=== PATIENT | male | born 1955 | race Two or more races ===

== ENCOUNTER → 2021-03-02 15:29 | Outpatient (BNVA) | payer MEDICARE, MEDICAID, SELFPAY | PROVIDERS: PCP Internal Medicine; Visit Provider Internal Medicine | DX: M79.18 Myalgia, other site (principal); M96.1 Postlaminectomy syndrome, not elsewhere classified | CPT/HCPCS: 20553; 99202 ==

== ENCOUNTER 2021-03-04 | Outpatient (REF) | payer MEDICARE, SELFPAY ==
--- NOTE | ~2021-03-04 | FL_ITS ---
EXAMINATION: XR FLUOROSCOPY WITH IMAGES CLINICAL INFORMATION: Post laminectomy syndrome. COMPARISON: None. TECHNIQUE: Fluoroscopy performed by Dr. Roni Isidro. Fluoroscopy time: 0.5 minutes DAP: 4 Gycm2 Images: 3 FINDINGS: Images demonstrate needle placement and contrast injection of the epidural space in the sacrum and lower lumbar spine. FL/FL guidance in treatment room IMPRESSION: Fluoroscopy guidance for pain management procedure.
== END 2021-03-04 00:01 | disposition home or self-care (01) ==
LOC: HO.RADIR
PROVIDERS: Visit Provider Internal Medicine
DX: Z13.89 Encounter for screening for other disorder (principal)

== ENCOUNTER → 2021-03-04 11:34 | Outpatient (BNVA) | payer MEDICARE, MEDICAID, SELFPAY | PROVIDERS: PCP Internal Medicine; Visit Provider Internal Medicine | DX: M96.1 Postlaminectomy syndrome, not elsewhere classified (principal); G89.4 Chronic pain syndrome; M54.50 Low back pain, unspecified | CPT/HCPCS: 62323; Q9967 ==

== ENCOUNTER → 2021-03-13 10:42 | Outpatient (BNVA) | payer MEDICARE, MEDICAID, SELFPAY | PROVIDERS: PCP Internal Medicine; Visit Provider Internal Medicine | DX: M96.1 Postlaminectomy syndrome, not elsewhere classified (principal); I10 Essential (primary) hypertension; E78.5 Hyperlipidemia, unspecified; E11.9 Type 2 diabetes mellitus without complications; Z79.4 Long term (current) use of insulin; Z79.84 Long term (current) use of oral hypoglycemic drugs; Z79.891 Long term (current) use of opiate analgesic; Z79.899 Other long term (current) drug therapy | CPT/HCPCS: 99212 ==

== ENCOUNTER → 2022-08-30 10:40 | Outpatient (BNVA) | payer MEDICARE, MEDICAID, SELFPAY | PROVIDERS: PCP Internal Medicine; Visit Provider Internal Medicine | DX: M96.1 Postlaminectomy syndrome, not elsewhere classified (principal); M47.816 Spondylosis without myelopathy or radiculopathy, lumbar region; G89.29 Other chronic pain; Z98.1 Arthrodesis status | CPT/HCPCS: 99212 ==

== ENCOUNTER 2022-09-15 14:20 | Day surgery (SDC) | payer MEDICARE, MEDICAID, SELFPAY ==
--- NOTE | ~2022-09-15 | FL_ITS ---
EXAMINATION: XR FLUOROSCOPY WITH IMAGES CLINICAL INFORMATION: L3 medial branch sprint left COMPARISON: Previous exam February 2021 TECHNIQUE: Fluoroscopy Supervised By: Dr. Heladio Isidro. Fluoroscopy Time: 0.6 minutes. Cumulative Dose: 19 mGy. DAP: 2 Gycm2. Images: 2. FINDINGS: There is surgical hardware in the lumbar sacral spine new in the interval from 2020 exam. Image demonstrates needle/probe over the posterior L5-S1 disc disease. FL/FL guidance in OR IMPRESSION: Fluoroscopy guidance for pain management procedure
--- NOTE | 2022-09-15 14:37 | MHC.SHP ---
Pre-Procedural Eval Section A Date of Service: 09/15/22 The patient is an INPATIENT: No Changes since office visit: Yes Patient answered all questions The History & Physical has been completed within 30 days and I have reviewed it.: No Section B Chief Complaint: Postlaminectomy syndrome,chronic pain, Relevant Family History (Specify if Yes): No Relevant Social History: Other (specify) Present Medications: None Medical History: No relevant PMH History of Previous Operations: Relevant previous surgery/procedure and date(s) (Lumbar fusion) Allergies: Allergies Allergy/AdvReac Type Severity Reaction Status Date / Time No Known Allergies Allergy Verified 08/30/22 10:45 Review of Systems Sugical H&P ROS: Negative: Constitution, Cardiovascular and Respiratory Exam Surgical H&P Exam: Normal: HEENT, Normal: Heart and Normal: Lungs Plan Diagnosis/Plan: Unchanged I have reviewed the history and physical and performed a pertinent physical examination on my patient. No changes have occurred unless specified. Time Spent With Patient Time: Total time managing care of this patient today ____ minutes.
--- NOTE | 2022-09-15 14:38 | P.BOP_ITS ---
Brief Operative Note Date of Service: 09/15/22 Pre-op diagnosis: Chronic intractable low back pain, lumbar spondylosis, post-laminectomy syndrome Post-op diagnosis: same Procedure: Temporary right L4 medial branch nerve stimulator Implants: Sprint temporary PNS system Surgeon: Heladio Isidro MD Anesthesia: MAC and local Was an Informatics Nurse Specialist used for this Procedure?: No Estimated blood loss (mL): 20 Pathology: none sent Condition: stable Disposition: same day
--- NOTE | 2022-09-15 14:38 | P.OP_ITS ---
Operative Note Operative Note Date of Service: 09/15/22 Narrative: Lumbar Medial Branch Nerve Stimulation Lead Placement, SPR (Sprint) System, Right L4 Medial Branch ? After the risks, benefits and alternatives were discussed with the patient and informed consent was obtained, patient was placed in the prone position and padded to foster comfort. The skin overlying the lumbosacral spine was prepped and draped in sterile fashion. Fluoroscopy was used to identify the spinous process and lamina in the center of the patient?s region of pain. After identifying and marking the intended target along the course of the medial branch nerve, the skin around the planned entry point and the subcutaneous tissues were injected with lidocaine 1%. An introducer needle and stimulating probe were assembled, inserted and advanced along the intended course of the L3 medial branch nerve as it traverses the lamina medial and inferior to the zygapophyseal joint, taking care to maintain the proper depth of insertion as the introducer is advanced under fluoroscopic guidance. The introducer needle was delivered to a location in proximity to the nerve under the right L4 pedicle. Multiple stimulation parameters were used to deliver stimulation to the target medial branch nerve in concert with stimulating at multiple positions around the nerve. Nerve target acquisition was confirmed noting generation of paresthesias in the paravertebral regions corresponding to the level being stimulated. Upon removal of the stimulating stylet, profuse vascular bleeding was observed through the insertion cannula. The cannula was removed and firm, steady pressure was held on to the lumbar area for 5-7 minutes. Decision was made to then re- attempt placement on the right L4 medial branch nerve as it courses the under the right L5 pedicle. The introducing needle was delivered under the right L5 pedicle at a 45 degree trajectory with contact on the lamina. Paresthesia based stimulation in the patient's usual area of pain was once again confirmed. However once again upon removal of the stimulating stylet, bleeding was observed through the cannula. The cannula was once again removed and study pressure was held for 5-7 minutes. A 3rd attempt was made by inserting the stimulating probe an introducer assembly at a steeper angle under the right L5 pedicle targeting the right L4 medial branch. Various electrical parameter combinations were tested, and the lead location was adjusted (physically relocated) until the patient indicated paresthesia/muscle tension overlapping the distribution of the patient?s typical region of pain. The stimulating probe was removed from the introducer and a percutaneous lead was guided through the needle and delivered to a location in similar proximity to the nerve. Final location was verified with electrical stimulation and documented with fluoroscopy. Upon removal of the insertion cannula, minor bleeding was observed around the lead insertion site. Once again study pressure was held for 5-7 minutes over the lead insertion and its course under the skin. Hemostasis was successfully obtained. The exposed end of the percutaneous lead was attached to an external stimulator unit. Various electrical parameter combinations were again tested until the patient indicated paresthesia or muscle tension overlapping the distribution of the patient?s typical region of pain. After confirming that lead impedance was in the normal range, the external unit was detached, the needle was removed, and the lead was anchored at the skin. The lead was threaded into the connector block and electrical continuity and desired patient response was confirmed. The connector block was attached to the external stimulator unit. The site was covered with a sterile occlusive dressing. The patient was observed for stability of vital signs and comfort.
[2022-09-15 14:40] VITALS: BMI 34.7
[2022-09-15 16:20] VITALS: BP 148/85; PULSE 87; RESP 20; TEMP 36.9; O2SAT 94
== END 2022-09-15 17:20 | disposition home or self-care (01) ==
PROVIDERS: PCP Internal Medicine; Visit Provider Internal Medicine
PROC: (CPT 64555; principal; 2022-09-15 15:10)
DX: M47.816 Spondylosis without myelopathy or radiculopathy, lumbar region (principal); M96.1 Postlaminectomy syndrome, not elsewhere classified; G89.29 Other chronic pain; M54.50 Low back pain, unspecified; I10 Essential (primary) hypertension; E78.5 Hyperlipidemia, unspecified; E11.9 Type 2 diabetes mellitus without complications; F41.1 Generalized anxiety disorder; Z79.1 Long term (current) use of non-steroidal anti-inflammatories (NSAID); Z79.4 Long term (current) use of insulin; Z79.899 Other long term (current) drug therapy
CPT/HCPCS: 64555; C1778

== ENCOUNTER → 2023-01-26 10:52 | Outpatient (BNVA) | payer MEDICARE, MEDICAID, SELFPAY | PROVIDERS: PCP Internal Medicine; Visit Provider Physician Assistant ==

== ENCOUNTER 2023-02-28 08:57 | Outpatient (AMB) | payer MEDICARE, MEDICAID, SELFPAY ==
--- NOTE | 2023-02-28 08:59 | A.OFFVIS_ITS ---
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 SWL Chemical Dependency Counselor Required: Yes Chemical Dependency Counselor Name: susan [id number] CMI azeri Allergies No Known Allergies Allergy (Verified 02/28/23 09:24) Medication List - Last Reconciled 02/28/23 by SUKH Guadarrama alfuzosin ER 10 mg PO DAILY clonazepam 0.25 mg PO BEDTIME dorzolamide 2% 1 drp ophthalmic (eye) TID dulaglutide (Trulicity) 3 mg subcut QWEEK ibuprofen 600 mg PO Q8H PRN insulin glargine (Lantus U-100 Insulin) 10 units subcut QPM insulin lispro (Humalog KwikPen (U-100) Insulin) 1 sliding scale dose subcut US EASDIRECTD losartan 25 mg PO DAILY metformin 1,000 mg PO BIDWMEAL prazosin 5 mg PO BEDTIME simvastatin 20 mg PO QPM trazodone 100 mg PO BEDTIME PRN venlafaxine ER 150 mg PO DAILY HPI HPI Comments History of Present Illness Details Pt is here to start the [facility] surgical weight loss program. He heard about our program fromhis pain management doctor. His goal is to lose weight and achieve a healthy lifestyle as well as to improve, if not resolve, obesity related medical conditions, including DM, HTN, HLD. He reports first being concerned about his weight 4-5 years ago, highest weight to date was 260. Current weight is 246.4 pounds with a BMI of 36.4. He has tried multiple methods of weight loss including fad diets without permanent results. He lives with his . He is not currently working. 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 He has been in the [place] 25 years. He wakes at:?5am, and goes to bed at?9pm. Dinner is at 430 pm. Breakfast: sour cream, cheese, olives AM snack: fruit Lunch: mixed nuts PM snack: skip Dinner: rice, beans, meat After dinner: dessert or fruit Other snacks: sometimes a dessert Liquids: 48 oz water daily, 12 oz coke zero, no juice Alcohol/marijuana/tobacco intake: none Exercise: walk, treadmill, 1-2 x per week GERD score: 0 HOMA score: 0 ESS score: 2 QOL score: 69 PFSH Medical History Post laminectomy syndrome Failed back syndrome HTN (hypertension) Arthritis Cervical spondylarthritis Insomnia Right arm pain Obesity Anxiety Nightmare disorder Low back pain Depression Lumbar spinal stenosis Ulnar neuropathy Carpal tunnel syndrome Chronic pain syndrome Glaucoma HLD (hyperlipidemia) Diabetes mellitus Surgical History Previous back surgery Family History Mother Diabetes Father Diabetes Daughter No problems noted. Daughter No problems noted. Son No problems noted. Daughter No problems noted. Son No problems noted. Social History Household Members: Spouse and Children Housing: House Alcohol intake: never Patient Tobacco Use Status: Never used Tobacco Current occupational status: retired Review of Systems Const All systems reviewed & are unremarkable except as noted in HPI and below Physical Exam Vital Signs: Last Vital Signs Temp 97.6 F 02/28/23 09:19 Pulse 81 02/28/23 09:19 BP 160/87 H 02/28/23 09:19 Pulse Ox 98 02/28/23 09:19 Oxygen Delivery Method Room Air 02/28/23 09:19 BMI result Body Mass Index 36.4 Const General: cooperative, healthy appearing and no acute distress Orientation/consciousness: patient oriented x3 HEENT Head: Yes normal to inspection Ears: hearing grossly normal bilaterally General nose exam: Normal external nose present Face and sinus: Yes normal facial exam Eyes General: appearance normal, both eyes and all related structures Resp Effort & Inspection: normal respiratory effort Auscultation: clear to auscultation bilaterally Cardio Rate: regular rate Rhythm: regular rhythm Heart sounds: S1 normal heart sound present and S2 normal heart sound present GI Inspection: Yes normal to inspection, No distended and Yes obesity Palpation (GI): Soft to palpation, nontender and no guarding Auscultation: normal bowel sounds Skin General skin exam: no rashes or lesions noted Neuro General: patient oriented x3 Extrem General: No edema Psych Appearance: grossly normal Mental Status: mental status grossly normal Speech and movement: Normal speech and movement present Affect: normal affect Attitude: cooperative Assessment & Plan Assessment & Plan (1) Obesity: Code(s): E66.9 - Obesity, unspecified Plan: This is a?68 yo male who will start our SWL program to prepare for bariatric surgery.? Blood work, h pylori , CXR, ECG, Abd US and UGI have been ordered. He is being scheduled for RD and BH initial consultations. He will start SWL classes and watch the first three videos before his next appointment. ? Adequate sleep of 7-8 hours per night discussed, awakening at 530 am and going to bed around 9 pm ? Purchase body composition analyzer scale (Renph[employer] recommended) and check weight weekly. The best time to do this is first thing in the morning after going to the bathroom. 1. Nutritional counseling: Be sure to careful read the number of scoops per shake Start with 2 Celebrate Rebuild shakes ([facility] [employer], [employer], [employer]), (2 scoops in 20 oz unsweetened almond milk) First shake at 630am-830am, Second shake at 930am-1130am 2 protein bars ([employer] bars at [facility] [employer], [employer], [employer]) First bar at 1230pm-230pm. Second bar at 330pm-530pm Dinner at 6pm (9 forks of protein and 9 forks of salad/vegetables). Meal to include lean meat (beef, fish, pork, turkey, chicken), cooked vegetables or a salad with olive oil and/or fruits (berries, pears, apples, kiwi). Avoid salt, breads, potatoes, rice, pasta, desserts. Try to drink 64 oz of water daily and avoid soda and juices. ?2. Each shake would be drunk slowly, like coffee in a period of 2 hours. ?3. Cut each bar in 4 pieces and eat each piece in 30 min ?to make each bar last 2 hours. ?4. I emphasized the importance of measuring accurately the food portion and measure it carefully when serving the food on the plate ?5. The meal portions include 9 full-size forks of meat and 9 full-size forks of salad. You always eat the meat portion but you can replace up to half of the forks of salad/vegetables with rice, potatoes or pasta, or a fruit ?if you like. The less you do it the better weight loss will be. ?6. One full-size fork is what can be scooped on the fork without falling aside and not what can be bit with the fork. Use regular forks like those you find in a typical restaurant. ?7.? Please send me weight measurements as soon as possible and then once a week. Always include your diet and exercise plan. Alternatively come weekly at the office for weight checks and send me the measurements. ?8. Exercise counseling: Begin by watching a stretching for beginners video. Start slowly and begin to stretch your muscles. You should do this before and after each exercise session to prevent injury. Please join [employer] [facility] near your home. Ask the insurance manager or one of the trainers how to use the machines if you are unfamiliar with them. Start elliptical with a resistance of 2. Increase resistance by 1 every 3 min to your most comfortable resistance with a max resistance of 8. Reduce the resistance by 1 every 3 minutes back down to 2 and repeat cycles for 300 calories. Alternatively, start treadmill with a speed of 3.0 and incline of 0, increasing incline by 1 every 3 minutes to the highest comfortable level (max 6 for now) then decrease in the same fashion. Repeat process to a goal of 300 calories. Goal of 2000 calories burned or more weekly. You may also consider use of the stationary bike. The easiest would be to chose the fat-burn or interval training program on the machine and do this until you reach the 300 calorie goal. Alternatively, you can manually adjust the resistance in a similar fashion as mentioned above, (resistance of 2-8 with a goal speed of 12 mph). Tracking calories is essential. 9. Alternatively start walking outside daily, tracking calories with a goal of 300 calories per day, daily. You can download the [employer] which can track your time, distance and calories while walking outside. You press start in the eddie when you start and then stop when you are finished. 10.? It is important to communicate with me weekly and especially more often if you are having any problems with the plans. 11. Please get labs, EKG and chest X-Ray within 1 week. 12. Discussed and answered all questions regarding?obtained consent to participate in the [facility]?Registry. 13. Please follow the diet plan exactly, without any change. If you do not like something about the plan or you feel hungry, you need to communicate with me so I can help you revise the plan. You should not change the plan yourself. Text me at [phone] 14. Goal is to lose at least 5 pounds in the first month 15. be sure and closely monitor your blood sugars as they will decrease fairly quickly on this meal and exercise plan Patient is morbidly obese and is not considered stable at this time.?I spent a total of 70 minutes reviewing/updating records, examining the patient and counseling the patient on weight management as detailed above. Orders: Orders Lipid Panel Today E11.9 - Type 2 diabetes mellitus without complications, E66.9 - Obesity, unspecified, E78.5 - Hyperlipidemia, unspecified, I10 - Essential (primary) hypertension Vitamin B12 and Folate Today E11.9 - Type 2 diabetes mellitus without complications, E66.9 - Obesity, unspecified, E78.5 - Hyperlipidemia, unspecified, I10 - Essential (primary) hypertension Zinc Today E11.9 - Type 2 diabetes mellitus without complications, E66.9 - Obesity, unspecified, E78.5 - Hyperlipidemia, unspecified, I10 - Essential (primary) hypertension Comprehensive Met. Panel Today E11.9 - Type 2 diabetes mellitus without complications, E66.9 - Obesity, unspecified, E78.5 - Hyperlipidemia, unspecified, I10 - Essential (primary) hypertension Vitamin A Today E11.9 - Type 2 diabetes mellitus without complications, E66.9 - Obesity, unspecified, E78.5 - Hyperlipidemia, unspecified, I10 - Essential (primary) hypertension C Reactive Protein Today E11.9 - Type 2 diabetes mellitus without complications, E66.9 - Obesity, unspecified, E78.5 - Hyperlipidemia, unspecified, I10 - Essential (primary) hypertension Ferritin Today E11.9 - Type 2 diabetes mellitus without complications, E66.9 - Obesity, unspecified, E78.5 - Hyperlipidemia, unspecified, I10 - Essential (primary) hypertension PTHI Today E11.9 - Type 2 diabetes mellitus without complications, E66.9 - Obesity, unspecified, E78.5 - Hyperlipidemia, unspecified, I10 - Essential (primary) hypertension H Pylori Breath Test Today E11.9 - Type 2 diabetes mellitus without complications, E66.9 - Obesity, unspecified, E78.5 - Hyperlipidemia, unspecified, I10 - Essential (primary) hypertension Vitamin D 25-OH Total Today E11.9 - Type 2 diabetes mellitus without complications, E66.9 - Obesity, unspecified, E78.5 - Hyperlipidemia, unspecified, I10 - Essential (primary) hypertension Hemoglobin A1c Today E11.9 - Type 2 diabetes mellitus without complications, E66.9 - Obesity, unspecified, E78.5 - Hyperlipidemia, unspecified, I10 - Essential (primary) hypertension FL upper GI w air Today E11.9 - Type 2 diabetes mellitus without complications, E66.9 - Obesity, unspecified, E78.5 - Hyperlipidemia, unspecified, I10 - Essential (primary) hypertension Insulin Today E11.9 - Type 2 diabetes mellitus without complications, E66.9 - Obesity, unspecified, E78.5 - Hyperlipidemia, unspecified, I10 - Essential (primary) hypertension IRON PROFILE Today E11.9 - Type 2 diabetes mellitus without complications, E66.9 - Obesity, unspecified, E78.5 - Hyperlipidemia, unspecified, I10 - Essential (primary) hypertension Complete Blood Count Auto Diff Today E11.9 - Type 2 diabetes mellitus without complications, E66.9 - Obesity, unspecified, E78.5 - Hyperlipidemia, unspecifie d, I10 - Essential (primary) hypertension Vitamin B1 Today E11.9 - Type 2 diabetes mellitus without complications, E66.9 - Obesity, unspecified, E78.5 - Hyperlipidemia, unspecified, I10 - Essential (primary) hypertension TSH reflex Free T4 Today E11.9 - Type 2 diabetes mellitus without complications, E66.9 - Obesity, unspecified, E78.5 - Hyperlipidemia, unspecified, I10 - Essential (primary) hypertension US abdomen comp w elastography Today E11.9 - Type 2 diabetes mellitus without complications, E66.9 - Obesity, unspecified, E78.5 - Hyperlipidemia, unspecified, I10 - Essential (primary) hypertension XR chest 2V Today E11.9 - Type 2 diabetes mellitus without complications, E66.9 - Obesity, unspecified, E78.5 - Hyperlipidemia, unspecified, I10 - Essential (primary) hypertension ECG 12 lead EKG Today E11.9 - Type 2 diabetes mellitus without complications, E66.9 - Obesity, unspecified, E78.5 - Hyperlipidemia, unspecified, I10 - Essential (primary) hypertension Referrals Nutrition/Dietitian Referral E11.9 - Type 2 diabetes mellitus without complications, E66.9 - Obesity, unspecified, E78.5 - Hyperlipidemia, unspecified, I10 - Essential (primary) hypertension Behavioral Health Referral E11.9 - Type 2 diabetes mellitus without complications, E66.9 - Obesity, unspecified, E78.5 - Hyperlipidemia, unspecified, I10 - Essential (primary) hypertension Coding Level of Care Code New Pt Level 5 (97965) Diagnoses Obesity E66.9 Time Spent (min) 70
[2023-02-28 09:19] VITALS: BP 160/87; PULSE 81; TEMP 36.4; O2SAT 98; BMI 36.4
== END 2023-02-28 14:11 | disposition home or self-care (01) ==
PROVIDERS: PCP Internal Medicine; Visit Provider Physician Assistant Surgical
DX: E66.9 Obesity, unspecified (principal); Z68.36 Body mass index [BMI] 36.0-36.9, adult
CPT/HCPCS: 99205

== ENCOUNTER → 2023-02-28 08:57 | Outpatient (BNVA) | payer MEDICARE, MEDICAID, SELFPAY | PROVIDERS: PCP Internal Medicine; Visit Provider Physician Assistant Surgical | DX: E66.9 Obesity, unspecified (principal); Z68.36 Body mass index [BMI] 36.0-36.9, adult; E11.9 Type 2 diabetes mellitus without complications | CPT/HCPCS: 99202 ==

== ENCOUNTER 2023-03-01 07:58 | Outpatient (REF) | payer MEDICARE, MEDICAID, SELFPAY ==
--- NOTE | ~2023-03-01 | XR_ITS ---
EXAMINATION: XR CHEST CLINICAL INFORMATION: Obesity COMPARISON: None available. TECHNIQUE: 2 views of the chest were obtained. FINDINGS: No significant abnormality is noted involving the heart, lungs, mediastinum, bony thorax or soft tissues. XR/XR chest 2V IMPRESSION: Unremarkable examination.
--- NOTE | 2023-03-01 08:04 | ECG_ITS ---
Test Reason : e66.09 Blood Pressure : / mmHG Vent. Rate : 076 BPM Atrial Rate : 076 BPM P-R Int : 146 ms QRS Dur : 092 ms QT Int : 380 ms P-R-T Axes : 047 026 031 degrees QTc Int : 427 ms Normal sinus rhythm Normal ECG No previous ECGs available Referred By: Jimmy Michael Electronically Signed By:SEAN ALMEIDA MD
[2023-03-01 08:20] LABS: MANUAL DIFF FLAG NO
[2023-03-01 09:03] LABS: Basophils Absolute Auto 0.1 X10*3/uL (0.0-0.2); Eosinophils Absolute Auto 0.3 X10*3/uL (0.0-0.4); Eosinophils Percent Auto 3.8 % (0-4); Hematocrit 41.6 % (42.0-52.0); Hemoglobin 12.8 g/dl (14.0-18.0); Imm Gran Abs Auto 0.05 X10*3/uL (0.00-0.03); Imm Gran Pct Auto 0.7 % (0.0-0.4); Lymphocytes Absolute Auto 2.4 X10*3/uL (1.2-4.9); Lymphocytes Percent Auto 33.2 % (20-40); Mean Corpuscular HGB Conc 30.8 g/dl (31.0-36.0); Mean Corpuscular Hemoglobin 23.5 pg (27.0-33.0); Mean Corpuscular Volume 76.3 fL (80.0-98.0); Mean Platelet Volume 9.2 fL (9.4-12.4); Monocytes Absolute Auto 0.8 X10*3/uL (0.1-1.2); Monocytes Percent Auto 10.3 % (2-11); Neutrophils Absolute Auto 3.7 x10*3/uL (2.0-8.3); Platelet Count 284 X10*3/uL (160-400); Red Blood Count 5.45 X10*6/uL (4.60-5.80); Red Cell Distribution Width 17.2 % (11.0-16.0); White Blood Count 7.3 X10*3/uL (4.8-10.8)
[2023-03-01 09:26] LABS: Estimated Average Glucose 180 mg/dL; Hemoglobin A1c % 7.9 % (<6.0)
[2023-03-01 09:35] LABS: Alanine Aminotransferase 20 U/L (0-40); Albumin Level 4.1 g/dL (3.5-5.0); Alkaline Phosphatase 94 U/L (39-117); Anion Gap 11 (12-20); Aspartate Amino Transferase 20 U/L (5-37); Bilirubin Total 1.1 mg/dL (0.0-1.0); Blood Urea Nitrogen 16 mg/dL (9-16); C Reactive Protein < 0.04 mg/dL (< or = 0.50); Calcium 9.4 mg/dL (8.4-10.2); Carbon Dioxide 29 mmol/L (22-29); Chloride 105 mmol/L (96-108); Cholesterol 147 mg/dL (<200); Estimated Glomerular Filt Rate > 60; Glucose Random 141 mg/dL (60-115); HDL Cholesterol 38 mg/dL (>40); Iron 70 mcg/dL (45-160); LDL Cholesterol Calculated 71 mg/dL (<100); Percent Iron Saturation 18 % (15-50); Potassium 4.2 mmol/L (3.3-5.1); Sodium 141 mmol/L (135-145); Total Iron Binding Capacity 393 mcg/dL (228-428); Total Protein 7.2 g/dL (6.5-8.0); Triglycerides 192 mg/dL (<150); Unsaturated Iron Binding 323 ug/dL
[2023-03-01 10:12] LABS: Vitamin B12 312 pg/mL (200-900)
[2023-03-01 10:20] LABS: Ferritin 13 ng/mL (20-250); Insulin 20 uU/mL (2-29); Vitamin D 25-OH Total 28.9 ng/mL (>30)
[2023-03-02 18:13] LABS: Calcium (PTHI) 9.5 mg/dL (8.6-10.3); PTHI 108 pg/mL (16-77)
[2023-03-04 14:13] LABS: Zinc 90 mcg/dL (60-130)
[2023-03-07 11:20] LABS: Vitamin B1 13 nmol/L (8-30)
[2023-03-07 17:53] LABS: Vitamin A 40 mcg/dL (38-98)
== END 2023-03-01 07:59 | disposition home or self-care (01) ==
LOC: HO.XRAY 07:58
PROVIDERS: Visit Provider Physician Assistant Surgical
DX: E66.9 Obesity, unspecified (principal); E11.9 Type 2 diabetes mellitus without complications; E78.5 Hyperlipidemia, unspecified; I10 Essential (primary) hypertension
CPT/HCPCS: 36415; 71046; 80053; 80061; 82306; 82607; 82728; 82746; 83036; 83525; 83540; 83970; 84425; 84443; 84590; 84630; 85025; 86140; 93005

== ENCOUNTER → 2023-03-21 08:51 | Outpatient (BNVA) | payer MEDICARE, MEDICAID, SELFPAY | PROVIDERS: PCP Internal Medicine; Referring Provider Physician Assistant Surgical; Visit Provider Dietitian, Registered | DX: E66.9 Obesity, unspecified (principal); E11.9 Type 2 diabetes mellitus without complications; I10 Essential (primary) hypertension; E78.5 Hyperlipidemia, unspecified; Z71.3 Dietary counseling and surveillance | CPT/HCPCS: 97802 ==

== ENCOUNTER 2023-03-25 09:30 | Outpatient (AMB) | payer MEDICARE, MEDICAID, SELFPAY ==
--- NOTE | 2023-03-25 09:44 | A.OFFVIS_ITS ---
Intake Intake Visit Reasons: (OV) F/U SWL + H.Pylori Battery Inspector Required: Yes Battery Inspector Name: [id number] Allergies No Known Allergies Allergy (Verified 02/28/23 09:24) Medication List - Last Reconciled 03/25/23 by SUKH Guadarrama alfuzosin ER 10 mg PO DAILY cholecalciferol (vitamin D3) 125 mcg PO DAILY 90 days clonazepam 0.25 mg PO BEDTIME cyanocobalamin (vitamin B-12) 250 mcg PO DAILY 90 days dorzolamide 2% 1 drp ophthalmic (eye) TID dulaglutide (Trulicity) 3 mg subcut QWEEK ibuprofen 600 mg PO Q8H PRN insulin lispro (Humalog KwikPen (U-100) Insulin) 1 sliding scale dose subcut USEASDIRECTD losartan 25 mg PO DAILY metformin 500 mg PO BIDWMEAL prazosin 5 mg PO BEDTIME simvastatin 20 mg PO QPM trazodone 100 mg PO BEDTIME PRN venlafaxine ER 150 mg PO DAILY HPI HPI Comments 2 History of Present Illness Details The patient is a pleasant 68 year old male who returns to the clinic for pre-operative surgical weight loss management. They were last seen in the office on 02/28/23, recorded weight at that time was 246.4 pounds, with a BMI of 36.4. Today's weight is 244 pounds and BMI is 36. There has been a weight loss of 2.4 pounds since initiating the surgical weight loss program on 02/28/23 with a total body weight loss of 0.9 %. Pre op work up completed as follows: SWL classes:? []/8 BH appts: 03/28/23 ? ? RD appts: needs f/u Labs: 03/01/23-ACD, low D, B12:312, A1c:7.9 H. pylori: 03/25/23 CXR: 03/01/23-nad EK03/01/23-normal ABD U/S: 04/05/23 UGI: 05/17/23 The patient reports he has been following the meal plan for the last 3-4 days. He didn't start until 3-4 days ago as he needed to buy the products. The patient does not yet have a body composition scale. They also have not been communicating weekly. Current meal plan includes: 2 Celebrate Rebuild shakes ([facility] [employer], [employer], [employer]), (2 scoops in 20 oz unsweetened almond milk) First shake at 630am-830am, Second shake at 930am-1130am 2 protein bars (Celebrate bars at [facility] [employer], [employer]) First bar at 1230pm-230pm. Second bar at 330pm-530pm Dinner at 6pm (9 forks of protein and 9 forks of salad/vegetables). Drinking 50 oz of water Current exercise plan includes: walking 1 mile daily Joined [employer] [facility] Medical History Post laminectomy syndrome Failed back syndrome HTN (hypertension) Arthritis Cervical spondylarthritis Insomnia Right arm pain Obesity Anxiety Nightmare disorder Low back pain Depression Lumbar spinal stenosis Ulnar neuropathy Carpal tunnel syndrome Chronic pain syndrome Glaucoma HLD (hyperlipidemia) Diabetes mellitus Surgical History Previous back surgery Family History Mother Diabetes Father Diabetes Daughter No problems noted. Daughter No problems noted. Son No problems noted. Daughter No problems noted. Son No problems noted. Social History Household Members: Spouse and Children Housing: House Alcohol intake: never Patient Tobacco Use Status: Never used Tobacco Current occupational status: retired Physical Exam Const General: healthy appearing and no acute distress Resp Effort & Inspection: normal respiratory effort Auscultation: clear to auscultation bilaterally Cardio Rate: regular rate Rhythm: regular rhythm GI Auscultation: normal bowel sounds Extrem General: Yes normal to inspection Assessment & Plan Assessment & Plan (1) Obesity: Code(s): E66.9 - Obesity, unspecified Plan: With Turkish community relations coordinator, we went over all of his plans again. He has been encouraged to join the gym so that he may walk in the pool and follow the meal plan exactly. He does state that he has had low blood sugars and has been encouraged now to discontinue his Lantus altogether. He has been instructed to reduce his metformin to 500 mg twice daily and stop it altogether if he has blood sugars below 100. He will return to the office in 3 weeks. Coding Level of Care Code Est Pt Level 4 (42551) Diagnoses Obesity E66.9 Time Spent (min) 40
== END 2023-03-25 11:04 | disposition home or self-care (01) ==
PROVIDERS: PCP Internal Medicine; Visit Provider Physician Assistant Surgical
DX: E66.9 Obesity, unspecified (principal); Z68.36 Body mass index [BMI] 36.0-36.9, adult
CPT/HCPCS: 99214

== ENCOUNTER → 2023-03-25 09:30 | Outpatient (BNVA) | payer MEDICARE, MEDICAID, SELFPAY | PROVIDERS: PCP Internal Medicine; Visit Provider Physician Assistant Surgical | DX: E66.9 Obesity, unspecified (principal); E11.9 Type 2 diabetes mellitus without complications; I10 Essential (primary) hypertension; E78.5 Hyperlipidemia, unspecified; E55.9 Vitamin D deficiency, unspecified; Z68.36 Body mass index [BMI] 36.0-36.9, adult | CPT/HCPCS: 83013; 99211; 99212 ==

== ENCOUNTER 2023-03-25 14:26 | Outpatient (REF) | payer MEDICARE, MEDICAID, SELFPAY ==
[2023-03-28 14:04] LABS: H Pylori Breath Test Positive (Negative)
== END 2023-03-25 14:27 | disposition home or self-care (01) ==
LOC: HO.LNP 14:26
PROVIDERS: Visit Provider Physician Assistant Surgical
DX: Z13.89 Encounter for screening for other disorder (principal)
CPT/HCPCS: 83013

== ENCOUNTER 2023-03-28 10:11 | Outpatient (AMB) | payer MEDICARE, MEDICAID, SELFPAY ==
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
== END 2023-03-28 11:06 | disposition home or self-care (01) ==
PROVIDERS: PCP Internal Medicine; Visit Provider Counselor Mental Health
DX: F43.10 Post-traumatic stress disorder, unspecified (principal)
CPT/HCPCS: 90791

== ENCOUNTER → 2023-03-28 10:11 | Outpatient (BNVA) | payer MEDICARE, MEDICAID, SELFPAY | PROVIDERS: PCP Internal Medicine; Visit Provider Counselor Mental Health ==

== ENCOUNTER 2023-04-05 08:35 | Outpatient (REF) | payer MEDICARE, MEDICAID, SELFPAY ==
--- NOTE | ~2023-04-05 | US_ITS ---
EXAMINATION: US COMPLETE ABDOMEN WITH LIVER ELASTOGRAPHY CLINICAL INFORMATION: Obesity COMPARISON: None available. TECHNIQUE: Real-time imaging of the abdominal viscera. Noninvasive ultrasound liver fibrosis assessment is performed using Be ElastPQ point quantification shear wave elastography (2D-SWE) with a C5-2 MHz transducer. Multiple elastography samples are obtained. FINDINGS: PANCREAS: Normal. The visualized pancreatic head and body are normal in appearance. The remainder of the pancreas is obscured from visualization by the overlying bowel gas. ABDOMINAL AORTA: The proximal aspect is seen however the mid and distal abdominal aorta are not visualized. INFERIOR VENA CAVA: Visualized portions are normal. LIVER: Normal. The liver demonstrates normal size, contour and echogenicity. No focal lesion or intrahepatic biliary duct dilatation. The right lobe measures 16.0 cm in length. The left lobe measures 14.6 cm in length. Portal flow is hepatopedal Shear wave liver elastography median stiffness is 1.63 m/s (reference: normal median stiffness is 1.3 m/s or less). IQR/median stiffness to assess sampling precision is 0.15 (reference: good quality data set is IQR/median stiffness of 0.15 or less). GALLBLADDER: Normal. The gallbladder is physiologically distended without evidence of stones, sludge, polyps, wall thickening or pericholecystic fluid. COMMON BILE DUCT: Normal in caliber measuring 0.4 cm in diameter. RIGHT KIDNEY: Normal. No hydronephrosis. No renal calculi or focal parenchymal lesions. The kidney measures 10.5 cm in maximum dimension. LEFT KIDNEY: Normal. No hydronephrosis. No renal calculi or focal parenchymal lesions. The kidney measures 12.3 cm in maximum dimension. SPLEEN: Normal. The spleen measures 10.4 cm in maximum dimension. FREE FLUID: None. US/US abdomen comp w elastography IMPRESSION: 1. Normal abdominal ultrasound. 2. Liver elastography: In the absence of other known clinical signs, measurements rule out compensated advanced chronic liver disease. If there are known clinical signs, further testing may be needed for confirmation. REFERENCE: Society of Radiologists in Ultrasound Liver Stiffness Thresholds (2019): LIVER STIFFNESS THRESHOLDS: *Liver Stiffness equal or less than 1.3 m/s: High probability of being normal. *Liver Stiffness less than 1.7 m/s: In the absence of other known clinical signs, rules out compensated advanced chronic liver disease. *Liver Stiffness 1.7-2.1 m/s: Suggestive of compensated advanced chronic liver disease but need further test for confirmation. *Liver Stiffness over 2.1 m/s: Rules in compensated advanced chronic liver disease. *Liver Stiffness over 2.4 m/s: Suggestive of clinically significant portal hypertension. QUALITY OF DATA SET: *IQR/Median value equal or less than 0.15 implies a quality data set. *IQR/Median value over 0.15 implies a poor quality data set. SIGNIFICANT CHANGE FROM PRIOR EXAM: Significant change if liver stiffness measurement is 10% or greater from prior exam. OTHER CONSIDERATIONS: The stage of liver fibrosis may be overestimated in the setting of acute hepatitis, liver inflammation, elevated liver function tests, hepatic vascular congestion, obstructive cholestasis, non-fasting state, and infiltrative diseases such as amyloidosis and lymphoma. In some patients with NAFLD, the liver stiffness thresholds for compensated advanced chronic liver disease may be lower. In causes other than viral hepatitis and NAFLD, liver stiffness thresholds are not well established.
== END 2023-04-05 08:36 | disposition home or self-care (01) ==
LOC: HO.US 08:35
PROVIDERS: PCP Internal Medicine; Visit Provider Physician Assistant Surgical
DX: E66.9 Obesity, unspecified (principal); E11.9 Type 2 diabetes mellitus without complications; E78.5 Hyperlipidemia, unspecified; I10 Essential (primary) hypertension
CPT/HCPCS: 76705; 76981

== ENCOUNTER 2023-04-20 09:06 | Outpatient (AMB) | payer MEDICARE, MEDICAID, SELFPAY ==
--- NOTE | 2023-04-20 09:36 | A.OFFVIS_ITS ---
Intake VS Expanded 04/20/23 09:48 BP 119/69 Blood Pressure Location Rt brachial Blood Pressure Position Sitting Pulse 93 Pulse Source Pulse Oximeter Temp 96.8 F Temperature Source Tympanic Pulse Oximetry 96 Oxygen Delivery Method Room Air Height 5 ft 9 in Weight 232 lb 12.8 oz BMI 34.4 Body Fat % 32.9 Body Fat Mass 76.6 Fat Free Mass 156.0 Visceral Fat Rating 20.0 Body Water % 46.6 Body Water Mass 108.4 Muscle Mass/Score 148.4 Basal Metabolic Rate/Score 2,101 Intake Visit Reasons: (OV) F/U SWL Router Tender Required: Yes Router Tender Name: [id number] Allergies No Known Allergies Allergy (Verified 02/28/23 09:24) Medication List - Last Reconciled 04/20/23 by SUKH Guadarrama alfuzosin ER 10 mg PO DAILY cholecalciferol (vitamin D3) 125 mcg PO DAILY 90 days clonazepam 0.25 mg PO BEDTIME cyanocobalamin (vitamin B-12) 250 mcg PO DAILY 90 days dorzolamide 2% 1 drp ophthalmic (eye) TID dulaglutide (Trulicity) 3 mg subcut QWEEK ibuprofen 600 mg PO Q8H PRN insulin glargine (Lantus U-100 Insulin) 20 units subcut DAILY insulin lispro (Humalog KwikPen (U-100) Insulin) 1 sliding scale dose subcut USEASDIRECTD losartan 25 mg PO DAILY metformin 500 mg PO BIDWMEAL prazosin 5 mg PO BEDTIME simvastatin 20 mg PO QPM trazodone 100 mg PO BEDTIME PRN venlafaxine ER 150 mg PO DAILY HPI HPI Comments History of Present Illness0 Details The patient is a pleasant 68 year old male who returns to the clinic for pre-operative surgical weight loss management. They were last seen in the office on 03/25/23, recorded weight at that time was 244 pounds, with a BMI of 36. Today's weight is 232.8 pounds and BMI is 34.4. There has been a weight loss of 13.6 pounds since initiating the surgical weight loss program on 02/28/23 with a total body weight loss of 5.5 %. Pre op work up completed as follows: SWL classes:? 06/02 BH appts: cleared-03/28/23 ? ? RD appts: needs f/u Labs: 03/01/23-ACD, low D, B12:312, A1c:7.9 H. pylori: 03/25/23 CXR: 03/01/23-nad EK03/01/23-normal ABD U/S: 04/05/23 UGI: 05/17/23 The patient was told at his last appointment to discontinue his Lantus and decrease his metformin to 500 mg b.i.d. and monitor his blood sugars with discontinuance of his metformin altogether if he is having blood sugars less than 100. He states that he decreased his lantus to 20 u from 75 u daily and BS have been 120-175. He states he is following the meal plan 90%. He has a HB egg in the morning 1-2 x per week. Current meal plan includes: 2 Celebrate Rebuild shakes, (2 scoops in 20 oz unsweetened almond milk) First shake at 630am-830am, Second shake at 930am-1130am 2 protein bars ([employer]) First bar at 1230pm-230pm. Second bar at 330pm-530pm Dinner at 6pm (9 forks of protein and 9 forks of salad/vegetables). Drinking 50 oz of water Current exercise plan includes: walking 2 miles daily outside [facility] Medical History Post laminectomy syndrome Failed back syndrome HTN (hypertension) Arthritis Cervical spondylarthritis Insomnia Right arm pain Obesity Anxiety Nightmare disorder Low back pain Depression Lumbar spinal stenosis Ulnar neuropathy Carpal tunnel syndrome Chronic pain syndrome Glaucoma HLD (hyperlipidemia) Diabetes mellitus Surgical History Previous back surgery Family History Mother Diabetes Father Diabetes Daughter No problems noted. Daughter No problems noted. Son No problems noted. Daughter No problems noted. Son No problems noted. Social History Household Members: Spouse and Children Housing: House Alcohol intake: never Patient Tobacco Use Status: Never used Tobacco Current occupational status: retired Physical Exam Const General: healthy appearing and no acute distress Resp Effort & Inspection: normal respiratory effort Auscultation: clear to auscultation bilaterally Cardio Rate: regular rate Rhythm: regular rhythm GI Auscultation: normal bowel sounds Extrem General: Yes normal to inspection Assessment & Plan Assessment & Plan (1) Obesity: Code(s): E66.9 - Obesity, unspecified Plan: Continue current meal plan and exercise plan. He will continue to monitor his BS and decrease metformin to 500 mg BID. rtc 3-4 weeks Coding Level of Care Code Est Pt Level 3 (74244) Diagnoses Obesity E66.9
[2023-04-20 09:48] VITALS: BP 119/69; PULSE 93; TEMP 36; O2SAT 96; BMI 34.4
== END 2023-04-20 10:23 | disposition home or self-care (01) ==
PROVIDERS: PCP Internal Medicine; Visit Provider Physician Assistant Surgical
DX: E66.9 Obesity, unspecified (principal); Z68.34 Body mass index [BMI] 34.0-34.9, adult
CPT/HCPCS: 99213

== ENCOUNTER → 2023-04-20 09:06 | Outpatient (BNVA) | payer MEDICARE, MEDICAID, SELFPAY | PROVIDERS: PCP Internal Medicine; Visit Provider Physician Assistant Surgical | DX: E66.9 Obesity, unspecified (principal); Z68.34 Body mass index [BMI] 34.0-34.9, adult | CPT/HCPCS: 99212 ==

== ENCOUNTER 2023-05-17 09:51 | Outpatient (REF) | payer MEDICARE, MEDICAID, SELFPAY ==
--- NOTE | ~2023-05-17 | FL_ITS ---
EXAMINATION: XR FLUOROSCOPY UPPER GI WITH AIR CLINICAL INFORMATION: Preop evaluation prior to bariatric surgery COMPARISON: None TECHNIQUE: Fluoroscopic air contrast upper GI examination was performed utilizing standard techniques with thin and thick barium and effervescent granules. Numerous spot images were obtained. FINDINGS: Patient is status post multilevel spinal thoracolumbar stabilization. Transient laryngeal penetration was noted on the second swallow without reaching the true cords or subglottic trachea. Dual and single contrast images of the esophagus demonstrate normal caliber, contour, and mucosal pattern. No evidence of stricture, mass, or ulcerations identified. Nonpropulsive tertiary contractions are noted in the mid and distal esophagus A small type I hiatal hernia is present. Gastroesophageal reflux is seen up to the thoracic inlet. Dual contrast and single contrast images of the stomach demonstrated a normal contour. Evaluation of the gastric mucosa is limited due to lack of distention due to poor tolerance of the effervescent granules. No obvious mass, ulceration, or other abnormality is seen. Contrast freely passed into the gastric antrum and duodenal bulb without delay. Single and air-contrast images of the duodenal bulb demonstrate no abnormality. The duodenal sweep has a normal appearance, course, and mucosal fold appearance. No malrotation. The imaged proximal jejunum has a normal fold pattern and caliber. FLUOROSCOPY TIME: 4 minutes 3 seconds Number of Spot Images: 9 Number of Cine: 11 DOSE AREA PRODUCT: [id number] uGy-m2 (microgray-meter squared) FL/FL upper GI w air IMPRESSION: 1. Mild esophageal dysmotility. 2. Small type I hiatal hernia. 3. Significant spontaneous esophageal reflux. 4. Limited evaluation of the gastric mucosa due to lack of distention due to poor tolerance of the effervescent granules, however, no obvious masses, ulcerations or other abnormalities are seen. 5. Transient laryngeal penetration without subglottic aspiration on thick barium. This procedure was performed by Gurmeet Pena PA-C, and supervised by Dr. Rome
== END 2023-05-17 09:52 | disposition home or self-care (01) ==
LOC: HO.XRAY 09:51
PROVIDERS: PCP Internal Medicine; Visit Provider Physician Assistant Surgical
DX: E66.9 Obesity, unspecified (principal); E11.9 Type 2 diabetes mellitus without complications; I10 Essential (primary) hypertension; E78.5 Hyperlipidemia, unspecified
CPT/HCPCS: 74246

== ENCOUNTER → 2023-05-17 09:53 | Outpatient (BNV) | payer MEDICARE, MEDICAID, SELFPAY | PROVIDERS: PCP Internal Medicine; Visit Provider Radiology Diagnostic Radiology | DX: Z01.818 Encounter for other preprocedural examination (principal) | CPT/HCPCS: 74246 ==

== ENCOUNTER 2023-05-23 10:45 | Outpatient (AMB) | payer MEDICARE, MEDICAID, SELFPAY ==
--- NOTE | 2023-05-23 11:02 | A.OFFVIS_ITS ---
Intake VS Expanded 05/23/23 11:13 BP 130/76 Blood Pressure Location Rt brachial Blood Pressure Position Sitting Pulse 86 Pulse Source Pulse Oximeter Temp 97.6 F Temperature Source Temporal Artery Scan Pulse Oximetry 98 Oxygen Delivery Method Room Air Height 5 ft 9 in Weight 226 lb 9.6 oz BMI 33.5 Body Fat % 31.7 Body Fat Mass 71.8 Fat Free Mass 154.6 Visceral Fat Rating 19.0 Body Water % 47.5 Body Water Mass 107.6 Muscle Mass/Score 146.8 Basal Metabolic Rate/Score 2,072 Intake Visit Reasons: (OV) F/U SWL Brickmason Apprentice Required: Yes Brickmason Apprentice Name: Shira [id number] Allergies No Known Allergies Allergy (Verified 02/28/23 09:24) Medication List - Last Reconciled 05/23/23 by SUKH Guadarrama alfuzosin ER 10 mg PO DAILY cholecalciferol (vitamin D3) 125 mcg PO DAILY 90 days clonazepam 0.25 mg PO BEDTIME cyanocobalamin (vitamin B-12) 250 mcg PO DAILY 90 days dorzolamide 2% 1 drp ophthalmic (eye) TID dulaglutide (Trulicity) 3 mg subcut QWEEK ibuprofen 600 mg PO Q8H PRN insulin lispro (Humalog KwikPen (U-100) Insulin) 1 sliding scale dose subcut USEASDIRECTD losartan 25 mg PO DAILY metformin 500 mg PO BIDWMEAL prazosin 5 mg PO BEDTIME simvastatin 20 mg PO QPM trazodone 100 mg PO BEDTIME PRN venlafaxine ER 150 mg PO DAILY HPI HPI Comments History of Present Illness Details The patient is a pleasant 68 year old male who returns to the clinic for pre-operative surgical weight loss management. They were last seen in the office on 04/20/2023, recorded weight at that time was 232.8 pounds, with a BMI of 34.4. Today's weight is 226.6 pounds and BMI is 33.5. There has been a weight loss of 19.8 pounds since initiating the surgical weight loss program on 02/28/2023 with a total body weight loss of 8 %. He states overall he is doing well. BS have been well controlled with am BS 126 and evening 95. He has stopped his lantus. Pre op work up completed as follows: SWL classes:? 06/02 appts: cleared-03/28/23 ? ? RD appts: needs f/u Labs: 03/01/23-ACD, low D, B12:312, A1c:7.9 H. pylori: 03/25/23-pos CXR: 03/01/23-nad EK03/01/23-normal ABD U/S: 04/05/23-fatty liver UGI: 05/17/23-sm HH, GERD He states he has 2 bars 3 days per week otherwise 1 bar as he states he feels full. He has also been eating 9-12 forks of protein ad 9-12 forks of vegetables. Also having 1 egg in the morning. Current meal plan includes: 2 Celebrate Rebuild shakes, (2 scoops in 20 oz unsweetened almond milk) First shake at 630am-830am, Second shake at 930am-1130am 2 protein bars (Celebrate bars) First bar at 1230pm-230pm. Second bar at 330pm-530pm Dinner at 6pm (9 forks of protein and 9 forks of salad/vegetables). Drinking 50 oz of water Current exercise plan includes: walking 3 or more miles daily outside, not tracking calories. 300-450 calories per day [facility] Medical History Post laminectomy syndrome Failed back syndrome HTN (hypertension) Arthritis Cervical spondylarthritis Insomnia Right arm pain Obesity Anxiety Nightmare disorder Low back pain Depression Lumbar spinal stenosis Ulnar neuropathy Carpal tunnel syndrome Chronic pain syndrome Glaucoma HLD (hyperlipidemia) Diabetes mellitus Surgical History Previous back surgery Family History Mother Diabetes Father Diabetes Daughter No problems noted. Daughter No problems noted. Son No problems noted. Daughter No problems noted. Son No problems noted. Social History Household Members: Spouse and Children Housing: House Alcohol intake: never Patient Tobacco Use Status: Never used Tobacco Current occupational status: retired Assessment & Plan Assessment & Plan (1) Obesity: Code(s): E66.9 - Obesity, unspecified Plan: Change meal plans slightly. : 2 Celebrate Rebuild shakes, (2 scoops in 20 oz unsweetened almond milk) First shake at 630am-830am, Second shake at 930am-1130am 1 protein bars (Celebrate bars) First bar at 1230pm-230pm. romansh yogurt Dinner at 6pm (9 forks of protein and 9 forks of salad/vegetables). rtc 3 weeks (2) H. pylori infection: Code(s): A04.8 - Other specified bacterial intestinal infections Plan: re-test today, greater than 2 weeks after completion of abx Orders: Orders H Pylori Breath Test Today Z01.818 - Encounter for other preprocedural examination Coding Level of Care Code Est Pt Level 3 (92711) Diagnoses Obesity E66.9 H. pylori infection A04.8
[2023-05-23 11:13] VITALS: BP 130/76; PULSE 86; TEMP 36.4; O2SAT 98; BMI 33.5
== END 2023-05-23 11:59 | disposition home or self-care (01) ==
PROVIDERS: PCP Internal Medicine; Visit Provider Physician Assistant Surgical
DX: E66.9 Obesity, unspecified (principal); Z68.33 Body mass index [BMI] 33.0-33.9, adult; A04.8 Other specified bacterial intestinal infections
CPT/HCPCS: 99213

== ENCOUNTER 2023-05-23 10:45 | Outpatient (REF) | payer MEDICARE, MEDICAID, SELFPAY ==
[2023-05-26 13:58] LABS: H Pylori Breath Test Positive (Negative)
== END 2023-05-23 10:46 | disposition home or self-care (01) ==
LOC: HO.LNP 10:45
PROVIDERS: Visit Provider Physician Assistant Surgical
DX: Z13.89 Encounter for screening for other disorder (principal)
CPT/HCPCS: 83013

== ENCOUNTER → 2023-05-23 10:45 | Outpatient (BNVA) | payer MEDICARE, MEDICAID, SELFPAY | PROVIDERS: PCP Internal Medicine; Visit Provider Physician Assistant Surgical | DX: Z11.0 Encounter for screening for intestinal infectious diseases (principal); E66.9 Obesity, unspecified; A04.8 Other specified bacterial intestinal infections; Z68.33 Body mass index [BMI] 33.0-33.9, adult | CPT/HCPCS: 83013; 99211; 99212 ==

== ENCOUNTER 2023-08-10 09:57 | Outpatient (AMB) | payer MEDICARE, MEDICAID, SELFPAY ==
--- NOTE | 2023-08-10 09:59 | MHC.OFFVISWM ---
Intake VS Expanded 08/10/23 10:07 BP 120/70 Blood Pressure Location Rt brachial Blood Pressure Position Sitting Pulse 72 Pulse Source Pulse Oximeter Temp 96.8 F Temperature Source Temporal Artery Scan Pulse Oximetry 100 Oxygen Delivery Method Room Air Height 5 ft 9 in Weight 197 lb BMI 29.1 Body Fat % 25.2 Body Fat Mass 49.6 Fat Free Mass 147.2 Visceral Fat Rating 15.0 Body Water % 52.2 Body Water Mass 102.8 Muscle Mass/Score 140.0 Basal Metabolic Rate/Score 1,936 Intake Visit Reasons: (OV) f/u swl [employer] Required: Yes [employer] Director Language: [employer] Director Name: [id number] Allergies No Known Allergies Allergy (Verified 08/10/23 10:14) Medication List - Last Reconciled 08/10/23 by SUKH Guadarrama alfuzosin ER 10 mg PO DAILY cholecalciferol (vitamin D3) 125 mcg PO DAILY 90 days clonazepam 0.25 mg PO BEDTIME cyanocobalamin (vitamin B-12) 250 mcg PO DAILY 90 days dorzolamide 2% 1 drp ophthalmic (eye) TID dulaglutide (Trulicity) 3 mg subcut QWEEK ibuprofen 600 mg PO Q8H PRN insulin lispro (Humalog KwikPen (U-100) Insulin) 1 sliding scale dose subcut USEASDIRECTD losartan 25 mg PO DAILY metformin 500 mg PO BIDWMEAL pantoprazole 20 mg PO BID 14 days prazosin 5 mg PO BEDTIME simvastatin 20 mg PO QPM trazodone 100 mg PO BEDTIME PRN venlafaxine ER 150 mg PO DAILY HPI HPI Comments History of Present Illness Details The patient is a pleasant 68 year old male who returns to the clinic for pre-operative surgical weight loss management. They were last seen in the office on 05/23/23, recorded weight at that time was 226.6 pounds and BMI is 33.5. Weight today is 197 pounds with a BMI 29.1. There has been a weight loss of 49.4 pounds since initiating the surgical weight loss program on 02/28/2023 with a total body weight loss of 20 %. He states overall he is doing well. BS have been well controlled with am BS 126. He has stopped his lantus. Pre op work up completed as follows: SWL classes:? 06/02 appts: cleared-03/28/23 ? ? RD appts: needs f/u Labs: 03/01/23-ACD, low D, B12:312, A1c:7.9 H. pylori: 03/25/23-pos CXR: 03/01/23-nad EK03/01/23-normal ABD U/S: 04/05/23-fatty liver UGI: 05/17/23-sm HH, GERD He states he has been using 2 shakes and 2 meals during adan. Wants to do 1 shake and 2 meals. Since he has lost a significant amount of weight, he is no longer in need of surgery. He is very happy about this and would like to continue with 2 shakes and 1 meal. He also requested a follow-up on labs including hemoglobin A1c, lipid panel and vitamin-D. We additionally will retest for H pylori today. Current meal plan includes: meal in the mds nurse. 2 Celebrate Rebuild shakes, (2 scoops in 20 oz unsweetened almond milk) First shake at 630am-830am, Second shake at 930am-1130am Dinner at 6pm (9 forks of protein and 9 forks of salad/vegetables). Drinking 50 oz of water Current exercise plan includes: walking 4-8 miles daily outside 450-550 calories per day [facility] Medical History Post laminectomy syndrome Failed back syndrome HTN (hypertension) Arthritis Cervical spondylarthritis Insomnia Right arm pain Obesity Anxiety Nightmare disorder Low back pain Depression Lumbar spinal stenosis Ulnar neuropathy Carpal tunnel syndrome Chronic pain syndrome Glaucoma HLD (hyperlipidemia) Diabetes mellitus Surgical History Previous back surgery Family History Mother Diabetes Father Diabetes Daughter No problems noted. Daughter No problems noted. Son No problems noted. Daughter No problems noted. Son No problems noted. Social History Household Members: Spouse and Children Housing: House Alcohol intake: never Patient Tobacco Use Status: Never used Tobacco Current occupational status: retired Physical Exam Vital Signs: Last Vital Signs Temp 96.8 F 08/10/23 10:07 Pulse 72 08/10/23 10:07 BP 120/70 08/10/23 10:07 Pulse Ox 100 08/10/23 10:07 Oxygen Delivery Method Room Air 08/10/23 10:07 BMI result Body Mass Index 29.1 Const General: healthy appearing and no acute distress Resp Effort & Inspection: normal respiratory effort Auscultation: clear to auscultation bilaterally Cardio Rate: regular rate Rhythm: regular rhythm GI Auscultation: normal bowel sounds Extrem General: Yes normal to inspection Assessment & Plan Assessment & Plan (1) Overweight (BMI 25.0-29.9): Code(s): E66.3 - Overweight Plan: Check hemoglobin A1c, lipid panel and vitamin-D per patient request. He has had low vitamin-D in the past and has been supplementing since February. Additionally, as he has lost 20% total body weight and the equivalent of 50 lb, he has no longer in need of surgery. Will continue with 1 celebrate rebuild [facility] with 2 scoops in the morning followed by 2 meals, 1 mid day and 1 at dinner with 7 forks of protein and 8 forks of vegetables. He will continue his current walking routine and return to the office as needed. Orders: Orders H Pylori Breath Test Today E66.9 - Obesity, unspecified Lipid Panel Today E11.9 - Type 2 diabetes mellitus without complications, E66.3 - Overweight, E78.5 - Hyperlipidemia, unspecified, R79.89 - Other specified abnormal findings of blood chemistry Vitamin D 25-OH Total Today E11.9 - Type 2 diabetes mellitus without complications, E66.3 - Overweight, E78.5 - Hyperlipidemia, unspecified, R79.89 - Other specified abnormal findings of blood chemistry Hemoglobin A1c Today E11.9 - Type 2 diabetes mellitus without complications, E66.3 - Overweight, E78.5 - Hyperlipidemia, unspecified, R79.89 - Other specified abnormal findings of blood chemistry Coding Level of Care Code Tele Est Pt Level 3 (43996) Diagnoses Overweight (BMI 25.0-29.9) E66.3
[2023-08-10 10:07] VITALS: BP 120/70; PULSE 72; TEMP 36; O2SAT 100; BMI 29.1
== END 2023-08-10 11:11 | disposition home or self-care (01) ==
PROVIDERS: PCP Internal Medicine; Visit Provider Physician Assistant Surgical
DX: E66.3 Overweight (principal); Z68.29 Body mass index [BMI] 29.0-29.9, adult
CPT/HCPCS: 99214

== ENCOUNTER 2023-08-10 09:57 | Outpatient (REF) | payer MEDICARE, MEDICAID, SELFPAY ==
[2023-08-10 12:02] LABS: Estimated Average Glucose 134 mg/dL; Hemoglobin A1c % 6.3 % (<6.0)
[2023-08-10 12:30] LABS: Cholesterol 160 mg/dL (<200); HDL Cholesterol 48 mg/dL (>40); LDL Cholesterol Calculated 91 mg/dL (<100); Triglycerides 105 mg/dL (<150)
== END 2023-08-10 09:58 | disposition home or self-care (01) ==
LOC: HO.LAB 09:57
PROVIDERS: PCP Internal Medicine; Visit Provider Physician Assistant Surgical
DX: Z13.89 Encounter for screening for other disorder (principal)
CPT/HCPCS: 36415; 80061; 82306; 83036; 99211; 99212

== ENCOUNTER 2023-08-10 10:26 | Outpatient (REF) | payer MEDICARE, MEDICAID, SELFPAY ==
[2023-08-17 09:48] LABS: H Pylori Breath Test Positive (Negative)
== END 2023-08-10 10:27 | disposition home or self-care (01) ==
LOC: HO.LNP 10:26
PROVIDERS: Visit Provider Physician Assistant Surgical
DX: E66.9 Obesity, unspecified (principal); E11.9 Type 2 diabetes mellitus without complications; I10 Essential (primary) hypertension; Z79.899 Other long term (current) drug therapy
CPT/HCPCS: 36415; 80061; 82306; 83013; 83036; 99211; 99212

== ENCOUNTER 2023-08-22 11:26 | Outpatient (AMB) | payer MEDICARE, MEDICAID, SELFPAY ==
--- NOTE | 2023-08-22 11:28 | A.OFFVIS_ITS ---
Vital Signs 08/22/23 11:30 Height 5 ft 9 in Weight 200 lb BMI 29.5 BP 111/62 Blood Pressure Location Lt brachial Position Sitting Respiration 14 Pulse 85 Pulse Source Pulse Oximeter Pulse Oximetry (%) 99 Oxygen Delivery Method Room Air Intake Visit Reasons: f/u per Dr. Isidro Food Counter Worker Required: Yes Food Counter Worker Name: Shara [phone] Allergies No Known Allergies Allergy (Verified 08/22/23 11:32) Medication List - Last Reconciled 08/22/23 by Darlin iMranda LPN alfuzosin ER 10 mg PO DAILY cholecalciferol (vitamin D3) 125 mcg PO DAILY 90 days clonazepam 0.25 mg PO BEDTIME cyanocobalamin (vitamin B-12) 250 mcg PO DAILY 90 days dorzolamide 2% 1 drp ophthalmic (eye) TID dulaglutide (Trulicity) 3 mg subcut QWEEK ibuprofen 600 mg PO Q8H PRN insulin lispro (Humalog KwikPen (U-100) Insulin) 1 sliding scale dose subcut USEASDIRECTD losartan 25 mg PO DAILY metformin 500 mg PO BIDWMEAL pantoprazole 20 mg PO BID 14 days prazosin 5 mg PO BEDTIME simvastatin 20 mg PO QPM trazodone 100 mg PO BEDTIME PRN venlafaxine ER 150 mg PO DAILY HPI HPI f/u per Dr. Isidro: Details: 68-year-old male who presents today to the office for a follow-up. He continues to have severe right back pain extending from the mid back to the lower back area due to failed back syndrome. His pain is mild in the morning, but gradually increases as the day progresses. He has received IM diclofenac injections and is taking ibuprofen with mild relief. He has difficulty wearing shoes and socks at home. He is unable to bend down. He has also tried oxycodone in the past but has not tolerated it well. He sleeps on his side. He has a good pillow and mattress. He had a temporary nerve stimulator placed in the past, which provided moderate short-term benefit. His diabetes is better controlled now with A1c less than 7%. He is on dual serotonin reuptake inhibitor therapy at this point with both venlafaxine and sertraline according to his med list. He also appears to be taking dual alpha blockers including alfuzosin and prazosin. He also complains of right shoulder pain. He is unable to extend his right arm above his head. Past Procedures: 09/15/22: Lumbar Medial Branch Nerve Stimulation Lead Placement, SPR (Sprint) System, Right L4 Medial Branch: Moderate short-term relief 03/04/21: Caudal Epidural Saline Injection: >50% relief for his leg pain; back pain worsened. 03/02/2021: Trigger point injections to the lumbar and gluteal regions on the right [facility] Medical History Post laminectomy syndrome Failed back syndrome HTN (hypertension) Arthritis Cervical spondylarthritis Insomnia Right arm pain Obesity Anxiety Nightmare disorder Low back pain Depression Lumbar spinal stenosis Ulnar neuropathy Carpal tunnel syndrome Chronic pain syndrome Glaucoma HLD (hyperlipidemia) Diabetes mellitus Surgical History Previous back surgery Family History Mother Diabetes Father Diabetes Daughter No problems noted. Daughter No problems noted. Son No problems noted. Daughter No problems noted. Son No problems noted. Social History Household Members: Spouse and Children Housing: House Alcohol intake: never Patient Tobacco Use Status: Never used Tobacco Current occupational status: retired Review of Systems Const All systems reviewed & are unremarkable except as noted in HPI and below Physical Exam Vital Signs: Last Vital Signs Pulse 85 08/22/23 11:30 Resp 14 08/22/23 11:30 BP 111/62 08/22/23 11:30 Pulse Ox 99 08/22/23 11:30 Oxygen Delivery Method Room Air 08/22/23 11:30 BMI result Body Mass Index 29.5 General: Appears afebrile. Alert and oriented. Mood and affect appropriate. Follows and participates in conversation appropriately. Respiratory effort is unlabored. Able to transition from sit to stand unassisted. Ambulates with bilaterally normal heel strike and toe off. Limited lumbar range of motion. Flexion increases pain. Unable to flex or extend right arm above his neck. Results Reviewed Results Reviewed: No imaging is available for review. Assessment & Plan Assessment & Plan (1) Painful arc syndrome of right shoulder: Code(s): M75.101 - Unspecified rotator cuff tear or rupture of right shoulder, not specified as traumatic Category: Medical (2) Post laminectomy syndrome: Code(s): M96.1 - Postlaminectomy syndrome, not elsewhere classified Category: Medical (3) Lumbar spondylosis: Code(s): M47.816 - Spondylosis without myelopathy or radiculopathy, lumbar region Category: Medical (4) Chronic intractable pain: Code(s): G89.29 - Other chronic pain Category: Medical Plan A referral was provided to physical therapy for the shoulder. I also ordered an x-ray of the right shoulder today. For his intractable low back pain, we discussed a pain pump as a possible treatment option. Ordered a CT scan of the lumbar spine to rule out hardware malfunction. The patient will receive a call to schedule an appointment. After a CT scan, we can meet again to discuss the option of an ITP. I provided him with a brochure in the meanwhile to read. I counseled him to minimize his NSAID medication intake given his medical history of diabetes, hyperlipidemia and high blood pressure, which can all contribute to CKD. His diabetes is routinely well controlled, so we can robert ntually try low-dose cortisone injections, but given the extent of his lumbar spine surgeries, I do not think he will benefit much from spinal steroid injections. Also explained that the pain is fairly widespread across the thoracolumbar spine to benefit from targeted injections at any given level. I also encouraged him to follow-up with his urology and neurology prescribers to clarify if he should be on venlafaxine and sertraline as well as the alfuzosin and prazosin together at the same time. Scribed for Dr. Isidro by Niall Molina, medical superintendent, on 08/22/2023. I, Dr. Isidro, have personally reviewed and agree with the information entered by the scribe. Orders: Orders PT Evaluation and Treatment 08/22/23 M75.101 - Unspecified rotator cuff tear or rupture of right shoulder, not specified as traumatic CT lumbar spine wo IV con 08/22/23 G89.29 - Other chronic pain, M47.816 - Spondylosis without myelopathy or radiculopathy, lumbar region, M96.1 - Postlaminectomy syndrome, not elsewhere classified XR shoulder RT min 2V 08/22/23 M75.101 - Unspecified rotator cuff tear or rupture of right shoulder, not specified as traumatic Coding Level of Care Code Est Pt Level 4 (54257) Diagnoses Painful arc syndrome of right shoulder M75.101 Post laminectomy syndrome M96.1 Lumbar spondylosis M47.816 Chronic intractable pain G89.29
[2023-08-22 11:30] VITALS: BP 111/62; PULSE 85; RESP 14; O2SAT 99; BMI 29.5
== END 2023-08-22 12:05 | disposition home or self-care (01) ==
PROVIDERS: PCP Internal Medicine; Visit Provider Internal Medicine
DX: M75.101 Unspecified rotator cuff tear or rupture of right shoulder, not specified as traumatic (principal); M96.1 Postlaminectomy syndrome, not elsewhere classified; M47.816 Spondylosis without myelopathy or radiculopathy, lumbar region; G89.29 Other chronic pain
CPT/HCPCS: 99214

== ENCOUNTER → 2023-08-22 11:26 | Outpatient (BNVA) | payer MEDICARE, MEDICAID, SELFPAY | PROVIDERS: PCP Internal Medicine; Visit Provider Internal Medicine | DX: M75.101 Unspecified rotator cuff tear or rupture of right shoulder, not specified as traumatic (principal); M96.1 Postlaminectomy syndrome, not elsewhere classified; M47.816 Spondylosis without myelopathy or radiculopathy, lumbar region; G89.29 Other chronic pain | CPT/HCPCS: 99212 ==

== ENCOUNTER 2023-09-12 07:36 | Outpatient (REF) | payer MEDICARE, MEDICAID, SELFPAY ==
--- NOTE | ~2023-09-12 | XR_ITS ---
EXAMINATION: XR SHOULDER, RIGHT CLINICAL INFORMATION: Rotator cuff tear or rupture of right shoulder. COMPARISON: None available. TECHNIQUE: AP external rotation, Grashey, scapular Y, and axillary views of the right shoulder. FINDINGS: There is a focal 9 x 4 mm area of calcific density adjacent to the greater tuberosity in the region of rotator cuff tendon. Glenohumeral joint normal. Acromioclavicular joint demonstrates mild osteoarthritis with small marginal osteophytes. Surrounding bone and soft tissues unremarkable. XR/XR shoulder RT min 2V IMPRESSION: 1. Calcific density in the region of the rotator cuff tendon. This likely reflects calcific tendinosis or calcific tendinitis. 2. Mild osteoarthritis of the acromioclavicular joint.
--- NOTE | ~2023-09-12 | CT_ITS ---
EXAMINATION: CT LUMBAR SPINE WITHOUT CONTRAST CLINICAL INFORMATION: Post laminectomy syndrome. COMPARISON: None available. TECHNIQUE: Volumetric CT imaging of the lumbar spine was done with multiplanar reformatted reconstructions, to include the T10 level. This CT examination was performed using dose optimization techniques as appropriate, variously including the following: *Automated exposure control *Adjustment of mA and/or kV according to patient size (this includes techniques or standardized protocols for targeted exams where dose is matched to indication/reason for exam; i.e. extremities or head) *Use of iterative reconstruction technique DLP; 993 mGy-cm FINDINGS: Alignment: Slight S-shaped thoracolumbar scoliotic curvature, minimally convex to the left at L4-L5 and to the right at L1-L2. There is gibbus angulation at the T10-T11 level related to a T11 compression fracture deformity of indeterminate chronicity with mild anterolisthesis at T10 on T11. Slight retrolisthesis at T12-L1 and L5-S1 is also noted. Otherwise normal lumbosacral alignment in the sagittal plane. Lumbosacral Junction: Normal. There are 5 bax-ckx-xrddtaz lumbar-type vertebral bodies. Vertebral Bodies: There is a moderate anterior wedge compression fracture deformity along the superior endplate of T11 without significant retropulsion, of indeterminate chronicity with pedicle screws traversing the T11 level bilaterally. The right screw tip marginally extends into the intervertebral disc space. Remaining vertebral body heights are well-maintained. Hardware: Multilevel posterior instrumented spinal fusion hardware noted in place, with multilevel transpedicular screws at the T11, T12, L2, L4 and S1 levels bilaterally, with vertical connecting rods spanning the F91-O5-R8 levels. There is suggestion of some loosening surrounding the T11 and T12 transpedicular screws with radiolucency surrounding the screws at these levels. No hardware fractures are seen. Multilevel intervertebral disc spacers are noted with titanium markers in place between L1-L2 and L5-S1 inclusive with associated scatter artifact. Disc Spaces and Endplates: Multilevel anterior and paravertebral spondylosis throughout the lumbar spine is noted with multilevel intervertebral disc spacers. Beam scatter artifact makes it difficult to evaluate for bony bridging at these disc spaces. There are probable Schmorl's nodes at the L5-S1 intervertebral disc space as well. There is partially bridging anterior and paravertebral ossification spanning the T10-T11 level. There is disc space height loss at T10-T11 is well with trace anterolisthesis of T10 on T11. Spinal Levels: (Evaluation of the spinal canal and neural foramina is limited due to extensive metallic artifact. Soft tissue structures are not well seen). L5-S1: No bony canal stenosis. Minor foraminal narrowing bilaterally with the mild bilateral facet joint arthropathy. L4-L5: No bony canal stenosis. Evidence of previous laminectomy changes on the left. Concentric endplate spurring and some flattening of the ventral thecal sac is noted. Moderate bilateral facet joint arthropathy noted with moderate bilateral neural foraminal stenosis. L3-L4: Mild bilateral facet joint arthrosis with minor endplate spurring without bony canal stenosis. Minor foraminal narrowing noted on the left. L2-L3: Mild endplate osteophytic ridging with minor bilateral facet joint arthropathy without bony canal stenosis. Moderate bilateral neural foraminal stenosis is suspected. L1-L2: Mild endplate osteophytic ridging without significant bony canal stenosis. Mild facet joint arthropathy bilaterally. Pyoz-bk-lnlcukzx neural foraminal stenosis, right more than left. T12-L1: Slight retrolisthesis at this level without significant disc bulge or herniation. Minor facet joint arthropathy. No significant canal stenosis. Mild foraminal narrowing noted on the right. T11-T12: Mild facet joint arthropathy bilaterally. No bony canal stenosis. No significant disc bulge or herniation. Zlur-em-yyivtziv to left-sided foraminal stenosis. T10-T11: Unroofing of the posterior disc margin. Predominately right-sided costovertebral bony productive changes/arthrosis. Moderate bilateral facet joint arthropathy. Some flattening of the ventral dural sac noted with suspicion for mild canal stenosis. Cuxizqpn-nb-wlacfv left-sided and moderate right-sided neural foraminal stenosis suspected. Heterotopic ossification noted adjacent to the medial aspect of the posterior right T11 rib and bilateral pedicular screws. T9-T10: No bony canal stenosis. Neural foramina are incompletely visualized at this level. Paravertebral and Included Extraspinal Soft Tissues: The paravertebral soft tissue structures are grossly unremarkable within the limitations of the exam. CT/CT lumbar spine wo IV con IMPRESSION: 1. Anterior wedge compression fracture deformity of T11 of indeterminate chronicity, but likely chronic with no significant retropulsion and dqwx-ic-ngrhvryv gibbus angulation at T10-T11 with mild anterolisthesis of T10 on T11. 2. Status post T11-S1 instrumented spinal fusion with some radiolucency surrounding the T11 and T12 transpedicular screws suggesting loosening. No hardware fractures and no definite acute osseous fractures. 3. Multilevel intervertebral disc spacers and titanium markers in place with multilevel spondylosis. 4. Limited evaluation of the spinal canal and neural foraminal soft tissues due to extensive metallic artifact. Mild bony canal stenosis suspected at T10-T11. 5. Multilevel bilateral neural foraminal stenosis as described by level above.
== END 2023-09-12 07:37 | disposition home or self-care (01) ==
LOC: HO.CT 07:36
PROVIDERS: PCP Internal Medicine; Visit Provider Internal Medicine
DX: M96.1 Postlaminectomy syndrome, not elsewhere classified (principal); M47.816 Spondylosis without myelopathy or radiculopathy, lumbar region; G89.29 Other chronic pain; M75.101 Unspecified rotator cuff tear or rupture of right shoulder, not specified as traumatic
CPT/HCPCS: 72132; 73030

== ENCOUNTER 2024-08-06 11:23 | Outpatient (AMB) | payer MEDICARE, MEDICAID, SELFPAY ==
--- NOTE | 2024-08-06 11:23 | A.OFFVIS_ITS ---
Vital Signs 08/06/24 11:25 Height 5 ft 9 in Weight 195 lb BMI 28.8 BP 115/63 Blood Pressure Location Rt brachial Position Sitting Respiration 16 Pulse 91 Pulse Source Pulse Oximeter Pulse Oximetry (%) 98 Oxygen Delivery Method Room Air Intake Visit Reasons: back pain Stove Mechanic Required: Yes Allergies No Known Allergies Allergy (Verified 08/06/24 11:29) Medication List - Last Reconciled 08/06/24 by Darlin Miranda LPN alfuzosin ER 10 mg PO DAILY back brace As directed cholecalciferol (vitamin D3) 125 mcg PO DAILY 90 days clonazepam 0.25 mg PO BEDTIME cyanocobalamin (vitamin B-12) 250 mcg PO DAILY 90 days dorzolamide 2% 1 drp ophthalmic (eye) TID dulaglutide (Trulicity) 3 mg subcut QWEEK ibuprofen 600 mg PO Q8H PRN insulin lispro (Humalog KwikPen (U-100) Insulin) 1 sliding scale dose subcut USEASDIRECTD losartan 25 mg PO DAILY metformin 500 mg PO BIDWMEAL pantoprazole 20 mg PO BID 14 days prazosin 5 mg PO BEDTIME simvastatin 20 mg PO QPM trazodone 100 mg PO BEDTIME PRN venlafaxine ER 150 mg PO DAILY HPI HPI back pain: Details: History of Present Illness The patient is a 69-year-old male presenting with chronic pain. He suffers from neck pain caused by cervical disc degeneration as well as shoulder pain due to a rotator cuff injury. Chronic low back pain has persisted since undergoing a spinal fusion and revision, limiting his ability to walk long distances. The pain is of significant severity, affecting his ability to perform daily activities independently, such as dressing and bathing, where he needs assistance. Movements of the lower back result in severe pain exacerbation. Pain Description - Onset and Timing: Chronic pain, longstanding postlaminectomy syndrome - Quality: Severe, debilitating - Primary Location: Cervical spine, shoulder, lower back - Radiology: None reported - Exacerbating Factors: Movement of the lower back, positional changes - Relieving Factors: None reported - Interfering Activities: Walking long distances, dressing, showering, and bathing - Score: >7/10 average Physical Exam - Appears afebrile. - Alert and oriented. - Mood and affect appropriate. - Follows and participates in conversation appropriately. - Respiratory effort is unlabored. - Able to transition from sit to stand with discomfort. - Forward flexion relieves pain - Neck and shoulder ROM are painful - Lumbar lateral rotation reproduces pain Pain Management - Affect: Pain impacts daily living, requiring assistance. - Analgesia: Current pain management not discussed; specific medication regimen not detailed. - Adverse Effects: Between sessions, no adverse effects from medications reported. - Activities of Daily Living: Requires assistance with dressing and bathing due to pain. - Aberrant Drug Related Behaviors: Not reported or discussed. [facility] Medical History Post laminectomy syndrome Failed back syndrome HTN (hypertension) Arthritis Cervical spondylarthritis Insomnia Right arm pain Obesity Anxiety Nightmare disorder Low back pain Depression Lumbar spinal stenosis Ulnar neuropathy Carpal tunnel syndrome Chronic pain syndrome Glaucoma HLD (hyperlipidemia) Diabetes mellitus Surgical History Previous back surgery Family History Mother Diabetes Father Diabetes Daughter No problems noted. Daughter No problems noted. Son No problems noted. Daughter No problems noted. Son No problems noted. Social History Household Members: Spouse and Children Housing: House Alcohol intake: never Patient Tobacco Use Status: Never used Tobacco Current occupational status: retired Physical Exam Vital Signs: Last Vital Signs Pulse 91 08/06/24 11:25 Resp 16 08/06/24 11:25 BP 115/63 08/06/24 11:25 Pulse Ox 98 08/06/24 11:25 Oxygen Delivery Method Room Air 08/06/24 11:25 BMI result Body Mass Index 28.8 Assessment & Plan Assessment & Plan (1) Painful arc syndrome of right shoulder: Code(s): M75.101 - Unspecified rotator cuff tear or rupture of right shoulder, not specified as traumatic Category: Medical (2) Chronic intractable pain: Code(s): G89.29 - Other chronic pain Category: Medical (3) Post laminectomy syndrome: Code(s): M96.1 - Postlaminectomy syndrome, not elsewhere classified Category: Medical (4) Cervical spondylarthritis: Code(s): M47.812 - Spondylosis without myelopathy or radiculopathy, cervical region Category: Medical Plan Plan The patient requires a tailored treatment approach addressing pain from cervical disc degeneration, shoulder rotator cuff injury, and postlaminectomy syndrome. Prior PT and injections have had limited success. Steroid use is limited by DM. Address functional limitations by balancing pain relief with improved activity tolerance and rehabilitation, including home health support for assistance in activities of daily living. Patient was informed and verbally consented to the use of an ambient scribe for clinic note documentation during this visit. Discussion Notes I reviewed the chronic pain management associated with the patient's cervical disc degeneration, shoulder rotator cuff injury, and postlaminectomy syndrome. We talked about optimizing support through home health assistance to help with ADLs. Emphasis was placed on the need for consistent follow-up to assess pain management efficacy and adjust treatment accordingly. Patient Instructions - Engage with home health support for assistance in daily activities such as dressing and bathing. - Monitor pain levels and adjust activity to minimize exacerbation. - Report any changes in pain intensity or new symptoms promptly. Coding Level of Care Code Est Pt Level 3 (89130) Diagnoses Painful arc syndrome of right shoulder M75.101 Chronic intractable pain G89.29 Post laminectomy syndrome M96.1 Cervical spondylarthritis M47.812
[2024-08-06 11:25] VITALS: BP 115/63; PULSE 91; RESP 16; O2SAT 98; BMI 28.8
--- OUTSIDE RECORDS SUMMARY | 2024-08-06 13:26 | XMS_ITS | Clinical Summary ---
Author Organization [facility] Address [address] [place] [address] Care Team Providers Care Bar Back Name Role Phone Christopher Blue MD Primary Care Provider [phone] Allergies No known active allergies Medications Medication Sig Dispensed Refills Start Date End Date Status insulin glargine (LANTUS) injection 100 units/mL Inject under the skin every night at bedtime. 0 Active insulin aspart (NovoLOG) injection 100 units/mL Inject under the skin 3 (three) times a day with meals. 0 Active dulaglutide (Trulicity) 3 MG/0.5ML subcutaneous pen-injector Inject under the skin. 0 Active metFORMIN (GLUCOPHAGE) tablet 500 mg Take 1 tablet (500 mg total) by mouth 2 (two) times a day with meals. 0 Active atorvastatin (LIPITOR) tablet 20 mg Take 1 tablet (20 mg total) by mouth daily. 0 Active aspirin EC 81 MG tablet Take 1 tablet (81 mg total) by mouth daily. 0 Active losartan (COZAAR) tablet 25 mg Take 1 tablet (25 mg total) by mouth daily. 0 Active metoprolol succinate (TOPROL-XL) 24 hr tablet 25 mg Take by mouth daily. 0 Active isosorbide dinitrate (ISORDIL) 30 MG tablet Take 1 tablet (30 mg total) by mouth 4 (four) times a day. 1/2 TAB.DAILY 0 Active vitamin D3 (cholecalciferol) 25 MCG (1000 UT) tablet Take 1 tablet (25 mcg total) by mouth daily. 0 Active vitamin B-12 (CYANOCOBALAMIN) 250 MCG tablet Take 1 tablet (250 mcg total) by mouth daily. 0 Active prazosin (MINIPRESS) 5 MG capsule Take 1 capsule (5 mg total) by mouth every night at bedtime. 0 Active sertraline (ZOLOFT) 50 MG tablet Take 1 tablet (50 mg total) by mouth daily. 0 Active clonazePAM (KlonoPIN) 0.25 mg split tablet Take 2 split tablet (0.5 mg total) by mouth 2 (two) times a day as needed for anxiety. 0 Active traZODone (DESYREL) 100 MG tablet Take 1 tablet (100 mg total) by mouth every night at bedtime. 0 Active venlafaxine (EFFEXOR-XR) 150 MG 24 hr capsule Take 1 capsule (150 mg total) by mouth daily. 0 Active alfuzosin (UROXATRAL) 10 MG 24 hr tablet Take 1 tablet (10 mg total) by mouth daily. 0 Active gabapentin (NEURONTIN) 600 MG tablet Take 1 tablet (600 mg total) by mouth 3 (three) times a day. 0 Active ibuprofen 600 MG tablet Take 1 tablet (600 mg total) by mouth every 6 (six) hours as needed for pain. 0 Active dorzolamide-timolol (COSOPT) 2-0.5 % ophthalmic solution 1 drop 2 (two) times a day. 0 Active Turmeric 500 MG TABS Take by mouth. 0 Active ferrous sulfate 324 (65 Fe) MG EC tablet TAKE 1 TABLET (324 MG TOTAL) BY MOUTH EVERY MORNING WITH BREAKFAST. 90 tablet 1 12/03/2023 Active Active Problems Problem Noted Date Diagnosed Date Low serum vitamin B12 01/23/2024 Family History Medical History Relation Name Comments Cancer Brother COLON/PANCREATI C Relation Name Status Comments Brother Social History Tobacco Use Types Packs/Day Years Used Date Smoking Tobacco: Never Smokeless Tobacco: Never Tobacco Cessation:Counseling Given: Not Answered Alcohol Use Standard Drinks/Week Comments Never 0 (1 standard drink = 0.6 oz pur e alcohol) Sex and Gender Information Value Date Recorded Sex Assigned at Male 02/20/2024 1:44 PM EDT Gender Identity Male 02/20/2024 1:44 PM EDT Sexual Orientation Straight 02/20/2024 1: 44 PM EDT Job Start Date Occupation Industry Not on file Not on file Not on file Last Filed Vital Signs Vital Sign Reading Time Taken Comments Blood Pressure 108/53 02/20/2024 1:44 PM EDT Pulse 77 02/20/2024 1:44 PM EDT Temperature 36.3 ??C (97.4 ??F) 02/20/2024 1:44 PM ED T Respiratory Rate 18 02/20/2024 1:44 PM EDT Oxygen Saturation 100% 02/20/2024 1:44 PM EDT Inhaled Oxygen Concentration - - Weight 85.9 kg (189 lb 6.4 oz) 01/23/2024 2:02 P M EDT Height 177.8 cm (5' 10 ) 01/23/2024 2:02 PM EDT Body Mass Index 27.18 01/23/2024 2:02 PM EDT Plan of Treatment Health Maintenance Due Date Last Done Comments Hepatitis C Screening 1955 COVID-19 Vaccine (#1) 1954 Depression Screening 1966 Preventative Health Evaluation 02/04/1972 Colon Cancer Screening (Colonoscopy) 1999 Fall Risk Assessment 2019 Shingrix-Zoster Vaccine (2 of 2) 09/05/2019 07/11/2019 Influenza Vaccine (#1) 2023 06/16/2023 DTap / Tdap / Td (2 - Td or Tdap) 04/30/2024 04/30/2014 RSV Adult > 60+ Yrs or (1 - 1-dose 75+ series) 2029 Pneumococcal Vaccine Completed 06/16/2023, 04/09/2021, 03/30/2020, Additional history exists Hepatitis B Vaccines Aged Out No long er eligible based on patient's age to complete this topic RSV Ped < 20 months Aged Out No longe r eligible based on patient's age to complete this topic Care Teams Bar Back Relationship Specialty Start Date End Date Christopher Blue MD PCP - General Internal Medicine 03/16/17
--- OUTSIDE RECORDS SUMMARY | 2024-08-06 13:26 | XMS_ITS | Clinical Summary ---
Author Organization [facility] Address [address] [place] [address] Care Team Providers Care Poundmaster Name Role Phone Lamonte Wakefield RD Primary Care Provider [phone] Source Comments PLEASE NOTE, if this patient is a minor, it may be UNLAWFUL to discuss sensitive information that is contained in these records (such as FAMILY PLANNING, MENTAL HEALTH or SUBSTANCE ABUSE) with the minor patient's parent or other person without the patient's specific authorization.[facility] Allergies No known active allergies Medications chlorhexidine gluconate (PERIDEX) 0.12 % solutionIndicati ons:Gingivitis Swish and spit 15 mL 2 (two) times daily . Do not eat, drink, or swish mouth out after use for 30 min. 1 Bottle 3 09/04/2020 Active Social History Tobacco Use Types Packs/Day Years Used Date Smoking Tobacco: Never Assessed Social Connections Answer Date Recorded Connectedness 0 01/23/2024 Financial Resource Strain Answer Date R ecorded Financial Resource Strain 0 2020 Stress Answer Date Recorded Stress 0 09/04/2020 Physical Activity Answer Date Recorded Physical Activity 0 09/04/2020 Food Insecurity Answer Date Recorded Food 0 01/19/2024 Transportation Needs Answer Date Record ed Transportation 0 09/04/2020 Housing Stability Answer Date Recorded Housing 0 09/04/2020 Safety and Environment Answer Date Gera rded Safety 0 09/04/2020 Utilities Answer Date Recorded Utilities 0 09/04/2020 Employment Answer Date Recorded Stress 0 01/23/2024 Sex and Gender Information Value Date Recorded Sex Assigned at Male 07/20/2017 7:28 AM PDT Legal Sex Male 9:22 AM PDT Gender Identity Male 07/20/2017 7:28 AM PDT Sexual Orientation Straight 07/20/2017 7: 28 AM PDT Last Filed Vital Signs Vital Sign Reading Time Taken Comments Blood Pressure - - Pulse - - Temperature - - Respiratory Rate - - Oxygen Saturation - - Inhaled Oxygen Concentration - - Weight 91.2 kg (201 lb) 09/01/2016 11:07 AM EDT Height 175.3 cm (5' 9 ) 09/01/2016 11:07 AM EDT Body Mass Index 29.68 09/01/2016 11:07 AM EDT Plan of Treatment Health Maintenance Due Date Last Done Comments Hepatitis C Screening 1955 Lipid Screening 1954 Tobacco Screening 1954 Hypertension Screening (#1) 02/04/1972 Imm-DTaP/Tdap/Td (1 - Tdap) 1973 CT Colonography 1999 Colonoscopy 1999 Colorectal Cancer Screening 1999 FIT/gFOBT 1999 Fecal DNA 1999 Flexible Sigmoidoscopy 1999 Imm-Pneumococcal 65+ (1 of 1 - PCV) 02/04/2004 Imm-Zoster, Recombinant (1 of 2) 02/04/2004 Abdominal Aortic Aneurysm Screening 2019 Falls Prevention 2019 Diabetes Screening 09/01/2022 09/01/2021, 0 05/22/2021, 05/22/2021, Additional history exists [id number] (1 - 2023- season) 2023 Imm-Influenza (#1) 2023 Alcohol and Drug Screen 04/25/2024 Depression Annual Screen 04/25/2024 Insurance [facility] MEDICAID DENTAL [facility] Care Teams Poundmaster Relationship Specialty Start Date End Date Lamonte Wakefield [address] [place] [address] PCP - General Nutrition 12/18/13
--- OUTSIDE RECORDS SUMMARY | 2024-08-06 13:26 | XMS_ITS | Encounter Summary ---
Author Organization [facility] Address [address] [place] [address] Care Team Providers Care Opera Singer Name Role Phone Christopher Blue MD Primary Care Provider [phone] Encounter Details Date Type Department Care Team [...] Male 05/21/2024 9:50 AM EST Sexual Orientation Choose not to disclose 2024 9:50 AM EST documented as of this encounter Last Filed [...] for first iron and b12. He is wolof speaking but declined interpretor. He states he [...] Piv started, iron started, [facility], will monitor closely. * Historical, Notes Results [...] Care Team (Late st Contact Info) Description 08/09/2024 9:40 AM EDT Office Visit Endocrinology [address] [phone] Mackenzie Simon PA [address] [place] [address] 08/20/2024 9:15 AM EDT Office Visit Orthopedic Surgery - [place] [address] [phone] Rayo Kenny DPM [address] [address] 08/29/2024 11:30 AM EDT Appointment [facility] [address] [facility] 2nd [place] [phone] 09/20/2024 9:45 AM EDT Office Visit Adult [address] [phone] Fracisco Santos PA [address] [place] [address] 10/22/2024 10:00 AM EDT Office Visit [facility] Hematology Oncology [address] [place] [address] Francine Morris PA [address] [place] [address] 01/08/2025 9:45 AM EDT Office Visit [address] [phone] Fracisco Santos PA [address] [place] [address] documented as of this encounter Visit Diagnoses Diagnosis Deficiency of other specified B group vitamins documented in this encounter Care Teams Opera Singer Relationship Specialty Start Date End Date Christopher Blue MD PCP - General Internal Medicine 01/05/13 02/26/24 documented as of this encounter
--- OUTSIDE RECORDS SUMMARY | 2024-08-06 13:26 | XMS_ITS | Encounter Summary ---
Author Organization [facility] Address [address] [place] [address] Care Team Providers Care Dental Instructor Name Role Phone Christopher Blue MD Primary Care Provider [phone] Reason for Visit * Reason Comments Follow-up Encounter Details Date Type Department Care Team (Late st Contact Info) Description 08/03/2024 9:10 AM EDT Office Visit [facility] [address] [place] [id number] Cathy Haynes NP [address] [place] [address] [address] [place] [address] Primary hypertension (Primary Dx); Coronary artery disease involving [place] coronary artery of [place] heart without angina pectoris; Mixed hyperlipidemia Social History Tobacco Use Types Packs/Day Years [...] Sign Reading Time Taken Comments Blood Pressure 128/82 08/03/2024 9:09 AM EDT Pulse 69 08/03/2024 9:09 AM EDT Temperature - - Respiratory Rate - - Oxygen Saturation 99% 08/03/2024 9:09 AM EDT Inhaled Oxygen Concentration - - Weight 88.7 kg (195 lb 8 oz) 08/03/2024 9:09 AM EDT Height 177.8 cm (5' 10 ) 08/03/2024 9:09 AM EDT Body Mass Index 28.05 08/03/2024 9:09 AM EDT documented in this encounter Progress Notes * Cathy Haynes NP - 08/03/2024 9:10 AM EDTAssociated Problem(s): HTN (hypertension) Patient's blood pressure is well-controlled today. He will continue his current antihypertensive medication regimen as prescribed. Orders: ECG 12 lead * Cathy Haynes NP - 08/03/2024 9:10 AM EDTAssociated Problem(s): CAD (coronary artery disease) The patient has a history of moderate nonobstructive coronary artery disease based on cardiac CT scan completed June 2023 as outlined above. He continues on medical therapy with aspirin, metoprolol,and isosorbide mononitrate as well as statin. During today's visit, he reports symptoms of chest discomfort and shortness of breath with exertion. We discussed that the next step in his management would be for him to undergo a left heart catheterization for further evaluation of his coronary anatomy given cardiac testing in the past and despite medical therapy. Risks and benefits of coronary angiogram discussed with patient including the increased risk for bleeding and the less than 0.1% risk for LA, stroke or . The patient understands and wishes to proceed with coronary angiogram. All questions answered. Patient advised to refrain from exertional activites and to seek emergency medical attention if he develops chest pain or dyspnea which does not resolve with rest or sublingual nitroglycerin. Patient advised to seek emergency medical attention by calling 911 if they were to develop severe dyspnea, chest pain that did not resolve with rest or nitroglycerin, or if they were to faint. Orders: Basic metabolic panel; Future CBC and differential; Future Prothrombin time with INR; Future * Cathy Haynes NP - 08/03/2024 9:10 AM EDTAssociated Problem(s): HLD (hyperlipidemia) Patient has history of hyperlipidemia as well as a history of coronary artery disease. Last fastinglipid panel at goal at 58. He will continue his current medication regimen with atorvastatin as prescribed. * Cathy Haynes NP - 08/03/2024 9:10 AM EDT Images from the original note were not included. [facility] PRIMARY CAN INSPECTOR: Justo Tan MD PCP: Christopher Blue MD HPI: Cassandra López is a 69 y.o. old male with a history of coronary artery disease, hypertension, hyperlipidemia, diabetes mellitus type 2, osteoarthritis, and BPH. Patient presents today for routine cardiac follow-up. A video-assisted director of graduate medical education was utilized during today's visit in the French language. He reports he will occasionally experience a chestdiscomfort which lasts about 2 minutes at a time with associated shortness of breath with exertion.He reports overall since starting isosorbide, his symptoms have improved, however have still persisted recently. Patient denies any dizziness, palpitations, orthopnea, PND, syncope, near syncope, or peripheral edema. He is taking all his medications as prescribed. Cardiac Testin. Pharmacological nuclear stress test August 2022: No chest pain and no ischemic EKG changes. Myocardial perfusion imaging revealed no areas of ischemia or infarction. Calculated TID was abnormal at 1.40. LVEF was normal. Evidence of significant calcification of LAD which was noted on CT scan images. 2. Echocardiogram 03/10/23: Normal left ventricular size. Moderate concentric LVH. Hypokinesis of the basal inferior wall and basal inferior septal wall. Normal left ventricular systolic function with an LVEF of 55 to 60%. Normal RV size and function. No significant valvular stenosis or insufficiency. There is a prominent focal echodensity of the right coronary cusp with a slightly mobile component which could be significant focal calcification. 3. Transesophageal echocardiogram 04/01/2023: LVEF 55 to 60%. Normal RV size and function. No significant valvular disease. No evidence of any masses associated with the aortic valve. 4. Cardiac CT scan June 2023: Quality was good. Contrast-enhancement was good. Incidental finding:Short segment of mixed atherosclerotic plaque in the distal thoracic aorta. Normal biventricular size and morphology. Normal trileaflet aortic valve. Left main: Focal calcific plaque in the left mainostium causing minimal stenosis (less than 25%) and mixed plaque in the distal LAD causing minimal stenosis (less than 25%). LAD: Diffuse calcified plaque in the proximal LAD causing less than 25% stenosis, calcified plaque in the mid LAD causing at least moderate stenosis (50-69%). D1: Minimal stenosis (less than 25%). Circumflex: 25-49% stenosis in the mid circumflex. RCA: 25-49% stenosis in the ostial RCA. CT FFR analysis was completed and there is no CT FFR evidence of a hemodynamically significant stenosis. Incidental finding of left lower lobe 0.3 cm nodule. PCP made aware. ACTIVE MEDICATIONS: Outpatient Medications Marked as Taking for the 08/03/24 encounter (Office Visit) with Cathy Haynes NP Medication Sig Dispense Refill albuterol HFA (PROAIR HFA ; PROVENTIL HFA ; VENTOLIN HFA) 90 mcg/actuation inhaler Inhale 2 Puffs into the lungs 4 times daily as needed for Cough or Wheezing. alcohol swabs (Alcohol Prep Pads) pads, medicated USE 3 TIMES A DAY TO CLEAN AREA FOR TESTING 300 each 5 alfuzosin (UROXATRAL) 10 mg 24 hr tablet TAKE 1 TABLET BY MOUTH EVERY DAY 90 tablet 1 ammonium lactate (AmLactin) 12 % lotion Apply topically if needed for dry skin. 400 g 0 ammonium lactate (AmLactin) 12 % lotion Apply topically if needed for dry skin. 400 g 0 aspirin 81 mg EC tablet Take 1 Tablet by mouth daily. atorvastatin (LIPITOR) 20 mg tablet Take 1 Tablet by mouth daily. 90 tablet 2 blood sugar diagnostic (FreeStyle Lite Strips) test strip TEST 3 TIMES A DAY. DX CODE E 11.51 buPROPion XL (WELLBUTRIN XL) 300 mg 24 hr tablet Take 1 tablet (300 mg total) by mouth 1 (one) timeeach day in the morning. Do not crush, chew, or split. 90 each 1 cephalexin (KEFTAB) 500 mg tablet Take 2 tablets (1000 mg) by mouth once for 1 dose. Then take 1 tablet by mouth every 12 hours for 7 days. 15 tablet 0 cholecalciferol (VITAMIN D-3) 50 mcg (2,000 unit) tablet Take 1 tablet (2,000 Units total) by mouth1 (one) time each day. ciclopirox (LOPROX) 0.77 % gel Apply topically 2 (two) times a day. 45 g 0 clonazePAM (KlonoPIN) 0.5 mg tablet Take 1 Tablet by mouth at bedtime as needed. cyanocobalamin (VITAMIN B-12) 250 mcg tablet Take 1 tablet (250 mcg total) by mouth. DOCOSAHEXAENOIC ACID ORAL Take 1 g by mouth daily. dorzolamide-timoloL (COSOPT) 22.3-6.8 mg/mL ophthalmic solution Administer 1 drop into both eyes 2 (two) times a day. dulaglutide (Trulicity) 3 mg/0.5 mL pen injector injection Inject 3 mg into the skin once a week. ferrous sulfate 324 mg (65 mg elemental iron) EC tablet Take 1 tablet (324 mg total) by mouth 1 (one) time each day with breakfast. Do not crush, chew, or split. 90 tablet 1 flash glucose scanning reader (FREESTYLE EMERSON 2 READER MISC) 1 Device by Does not apply route See Admin Instructions. Check suagrs fasting, before meals and as needed. flash glucose sensor (FREESTYLE EMERSON 2 SENSOR MISC) 1 Each by Does not apply route every 14 days. folic acid (FOLVITE) 1 mg tablet Take 1 tablet (1 mg total) by mouth 1 (one) time each day. FREESTYLE LANCETS MISC TEST BLOOD SUGARS 3 TIMES A DAY BEFORE MEALS gabapentin (NEURONTIN) 600 mg tablet Take 1 tablet (600 mg total) by mouth 3 (three) times a day. ibuprofen (ADVIL,MOTRIN) 600 mg tablet TAKE 1-3 TABLETS BY MOUTH DAILY NEEDED FOR PAIN WITH FOOD90 DAYS ORALLY insulin aspart (NovoLOG Flexpen U-100 Insulin) 100 unit/mL (3 mL) injection pen Use 15-20 units three times a day 180 mL 1 insulin aspart (NovoLOG Flexpen U-100 Insulin) 100 unit/mL (3 mL) injection pen Use 15-20 units three times a day. 180 mL 1 insulin glargine (Lantus Solostar U-100 Insulin) 100 unit/mL (3 mL) injection pen INJECT 62 units at bedtime, increase by 2 units every 3 days with a max of 70 units. isosorbide dinitrate (ISORDIL) 30 mg tablet Take 1 tablet (30 mg total) by mouth. losartan (COZAAR) 25 mg tablet TAKE 1 TABLET BY MOUTH EVERY DAY 90 tablet 1 magnesium hydroxide (MILK OF MAGNESIA) 400 mg/5 mL suspension Take 15 mL by mouth. meclizine (ANTIVERT) 25 mg tablet Take 1 tablet (25 mg total) by mouth 3 (three) times a day if needed for dizziness. metFORMIN XR (GLUCOPHAGE-XR) 500 mg 24 hr tablet TAKE 2 TABLETS BY MOUTH TWICE A DAY WITH MEALS 360tablet 1 metoprolol succinate (TOPROL-XL) 25 mg 24 hr tablet TAKE 1 TABLET BY MOUTH EVERY DAY 90 tablet 2 pen needle, diabetic (BD Ultra-Fine Micro Pen Needle) 32 gauge x 1/4 needle Inject 1 each under the skin 4 (four) times a day. 200 each 2 prazosin (MINIPRESS) 5 mg capsule Take 1 capsule (5 mg total) by mouth. timoloL (BetimoL) 0.5 % ophthalmic solution 1 Drop 2 times daily. timolol (TIMOPTIC) 0.5 % ophthalmic solution tiZANidine (ZANAFLEX) 4 mg tablet Take 1 tablet (4 mg total) by mouth 4 (four) times a day if needed for muscle spasms. 40 tablet 0 traZODone (DESYREL) 100 mg tablet Take 2 tablets (200 mg total) by mouth at bedtime as needed for sleep. 60 tablet 0 venlafaxine XR (EFFEXOR-XR) 150 mg 24 hr capsule TAKE 1 CAPSULE BY MOUTH EVERY DAY WITH FOOD FOR 30DAYS PAST MEDICAL HISTORY: Patient Active Problem List Diagnosis Varicose veins of legs Type II diabetes mellitus with peripheral circulatory disorder ([facility] V24, [facility] V28) PTSD (post-traumatic stress disorder) Osteoarthritis of left knee Lung nodule Lumbar spinal stenosis HTN (hypertension) HLD (hyperlipidemia) Helicobacter pylori gastritis Failed back syndrome Erectile dysfunction Depression Chronic angle-closure glaucoma of both eyes, mild stage CAD (coronary artery disease) B12 deficiency Iron deficiency anemia, unspecified Diabetes mellitus ([facility] V24, [facility] V28) Glaucoma Kyphoscoliosis deformity of spine Low serum vitamin B12 Lumbar degenerative disc disease Spinal stenosis of lumbar region Anxiety and depression ALLERGIES: Allergies Allergen Reactions Gelatin SOCIAL HISTORY: Social History Tobacco Use Smoking status: Never Smokeless tobacco: Never Substance Use Topics Alcohol use: No PHYSICAL EXAM: Vitals: 08/03/24 0909 BP: 128/82 BP Location: Right arm Patient Position: Sitting BP Cuff Size: Adult Pulse: 69 SpO2: 99% Weight: 88.7 kg (195 lb 8 oz) Height: 1.778 m (70 ) Physical Exam Constitutional: General: He is awake. He is not in acute distress. Appearance: He is well-developed. He is not diaphoretic. HENT: Head: Normocephalic. Eyes: Pupils: Pupils are equal, round, and reactive to light. Neck: Vascular: No carotid bruit, hepatojugular reflux or JVD. Cardiovascular: Rate and Rhythm: Normal rate and regular rhythm. Pulses: Normal pulses and intact distal pulses. Heart sounds: Normal heart sounds, S1 normal and S2 normal. No murmur heard. Pulmonary: Effort: Pulmonary effort is normal. No respiratory distress. Breath sounds: Normal breath sounds. No wheezing, rhonchi or rales. Chest: Chest wall: No tenderness. Abdominal: General: Bowel sounds are normal. There is no distension. Palpations: Abdomen is soft. Tenderness: There is no abdominal tenderness. Musculoskeletal: General: No swelling or deformity. Normal range of motion. Right lower leg: No edema. Left lower leg: No edema. Skin: General: Skin is warm and dry. Neurological: Mental Status: He is oriented to person, place, and time. Psychiatric: Attention and Perception: Attention normal. Mood and Affect: Mood normal. Speech: Speech normal. EKG: Encounter Date: 08/03/24 ECG 12 lead Result Value Ventricular Rate ECG 67 Atrial Rate 67 P-R Interval 166 QRS Duration 100 Q-T Interval 388 QTc 409 P [place] 70 R [place] 71 T [place] 67 ECG Interpretation Normal sinus rhythm Normal ECG Confirmed by ELVA KOHLER ([id number]) on 08/03/2024 9:38:12 AM *Note: Due to a large number of results and/or encounters for the requested time period, some results have not been displayed. A complete set of results can be found in Results Review. ASSESSMENT/PLAN: Assessment & Plan Primary hypertension Patient's blood pressure is well-controlled today. He will continue his current antihypertensive medication regimen as prescribed. Orders: ECG 12 lead Coronary artery disease involving [place] coronary artery of [place] heart without angina pectoris The patient has a history of moderate nonobstructive coronary artery disease based on cardiac CT scan completed June 2023 as outlined above. He continues on medical therapy with aspirin, metoprolol,and isosorbide mononitrate as well as statin. During today's visit, he reports symptoms of chest discomfort and shortness of breath with exertion. We discussed that the next step in his management would be for him to undergo a left heart catheterization for further evaluation of his coronary anatomy given cardiac testing in the past and despite medical therapy. Risks and benefits of coronary angiogram discussed with patient including the increased risk for bleeding and the less than 0.1% risk for LA, stroke or . The patient understands and wishes to proceed with coronary angiogram. All questions answered. Patient advised to refrain from exertional activites and to seek emergency medical attention if he develops chest pain or dyspnea which does not resolve with rest or sublingual nitroglycerin. Patient advised to seek emergency medical attention by calling 911 if they were to develop severe dyspnea, chest pain that did not resolve with rest or nitroglycerin, or if they were to faint. Orders: Basic metabolic panel; Future CBC and differential; Future Prothrombin time with INR; Future Mixed hyperlipidemia Patient has history of hyperlipidemia as well as a history of coronary artery disease. Last fastinglipid panel at goal at 58. He will continue his current medication regimen with atorvastatin as prescribed. Thank you for allowing us to participate in the care of this patient. The patient will follow up after left heart catheterization, sooner PRN. As per AHA guidelines and previously established plan of care by Dr. Justo Tan MD, we discussed the following today: 1. Primary hypertension 2. Coronary artery disease involving [place] coronary artery of [place] heart without angina pectoris 3. Mixed hyperlipidemia [facility] Cosigned by Elva Kohler MD at 08/03/2024 4:48 PM EDT documented in this encounter Plan of Treatment Upcoming Encounters Date Type Department Care Team (Late st Contact Info) Description 08/09/2024 9:40 AM EDT Office Visit [address] [phone] Mackenzie Simon PA [address] [place] [address] 08/20/2024 9:15 AM EDT Office Visit Orthopedic Surgery [place] [address] [phone] Rayo Kenny DPM [address] [address] 08/29/2024 11:[address] [facility] [address] [facility] [address] [place] [address] 09/20/2024 9:45 AM EDT Office Visit Adult Medicine [address] [phone] Fracisco Santos PA [address] [place] [address] 10/22/2024 10:00 AM EDT Office Visit [facility] Hematology Oncology [address] [place] [phone] Francine Morris PA [address] [place] [address] 01/08/2025 9:45 AM EDT Office Visit Adult Medicine [facility] [address] [place] [address] Fracisco Santos PA [address] [place] [address] Scheduled Orders Name Type Priority Associated Diagnoses Orde r Schedule Basic metabolic panel Lab Routine Coronary artery disease involving [place] coronary artery of [place] heart without angina pectoris 1 Occurrences starting 08/03/2024 until 08/03/2025 CBC and differential Lab Routine Coronary artery disease involving [place] coronary artery of [place] heart without angina pectoris 1 Occurrences starting 08/03/2024 until 08/03/2025 Prothrombin time with INR Lab Routine Coronary artery disease involving [place] coronary artery of [place] heart without angina pectoris 1 Occurrences starting 08/03/2024 until 08/03/2025 documented as of this encounter Procedures Procedure Name Priority Date/Time Associated Diagnosis Comments ECG 12-LEAD Routine 08/03/2024 9:25 AM EDT Primary hypertension documented in this encounter Results * ECG 12 lead (08/03/2024 9:25 AM EDT) Ventricular Rate ECG 67 BPM GEMUSE Atrial Rate 67 BPM GEMUSE P-R Interval 166 ms GEMUSE QRS Duration 100 ms GEMUSE Q-T Interval 388 ms GEMUSE QTc 409 ms GEMUSE P Wave [place] 70 degrees GEMUSE R [place] 71 degrees GEMUSE T [place] 67 degrees GEMUSE ECG Interpretation Normal sinus rhythm Normal ECG Confirmed by ELVA KOHLER ([id number]) on 08/03/2024 9:38:12 AM GEMUSE 08/03/2024 9:25 AM EDT 08/03/2024 9:38 AM EDT Cathy Haynes NP ECG ORDERABLES Final Resul t GEMUSE documented in this encounter Visit Diagnoses Diagnosis Primary hypertension- Primary Unspecified essential hypertension Coronary artery disease involving [place] coronary artery of [place] heart without angina pectoris Mixed hyperlipidemia documented in this encounter Additional Health Concerns Assessment Noted Time PHQ-9 Depression Total Score: 9 07/25/19 25 11:42 AM EDT documented as of this encounter Care Teams Dental Instructor Relationship Specialty Start Date End Date Christopher Blue MD [address] [place] [id number] PCP - General Internal Medicine 02/27/24 documented as of this encounter
--- OUTSIDE RECORDS SUMMARY | 2024-08-06 13:26 | XMS_ITS | Clinical Summary ---
Author Organization [facility] [employer] Address [address] [place] [address] [address] [place] [address] Care Team Providers Care Cement Paver Name Role Phone Unavailable Primary Care Provider Unavailabl e Social History Tobacco Use Types Packs/Day Years Used Date Smoking Tobacco: Never Assessed Sex and Gender Information Value Date Recorded Sex Assigned at Male 02/22/2022 10:31 AM EDT Legal Sex Male 10:31 AM EDT Gender Identity Male 02/22/2022 10:31 AM EDT Sexual Orientation Choose not to disclose 2021 10:31 AM EDT Plan of Treatment Health Maintenance Due Date Last Done Comments CT Colonography 1954 Colonoscopy 1954 Colorectal Cancer Screening 1954 Depression Screening 1954 FIT DNA/Cologuard 1954 FIT 1954 FOBT 1954 Lipid Panel 1954 Sigmoidoscopy 1954 Alcohol/Substance Use Screening 1966 Tobacco Screening 1966 DTaP/Tdap/Td Vaccines (1 - Tdap) 1973 Pneumococcal Vaccine: 50+ Ye ars (1 of 1 - PCV) 02/04/2004 Zoster Vaccines (1 of 2) 02/04/2004 COVID-19 Vaccine ( - 2023-2 5 season) 2023 Influenza Vaccine (#1) 2023 RSV Patients and Pa tients Aged 60 years or older (1 - 1-dose 75+ series) 2029 HIB Vaccines Aged Out No longer eligi ble based on patient's age to complete this topic HPV Vaccines Aged Out No longer eligi ble based on patient's age to complete this topic Hepatitis A Vaccines Aged Out No long er eligible based on patient's age to complete this topic Hepatitis B Vaccines Aged Out No long er eligible based on patient's age to complete this topic IPV Vaccines Aged Out No longer eligi ble based on patient's age to complete this topic Meningococcal Vaccine Aged Out No mariano shira eligible based on patient's age to complete this topic RSV under 20 months Aged Out No longe r eligible based on patient's age to complete this topic Rotavirus Vaccines Aged Out No longer eligible based on patient's age to complete this topic
--- OUTSIDE RECORDS SUMMARY | 2024-08-06 13:26 | XMS_ITS | Clinical Summary ---
Author Organization [facility] Address [address] [place] [address] Phone Care Team Providers Care Salon Leader Name Role Phone Christopher Blue MD Primary Care Provider [phone] Allergies Active Allergy Reactions Criticality Noted Date Comments Gelatin 10/17/2023 Medications insulin glargine (Lantus Solostar U-100 Insulin) 100 unit/mL (3 mL) injection pen INJECT 62 units at bedtime, increase by 2 units every 3 days with a max of 70 units. 01/09/20 24 Active prazosin (MINIPRESS) 5 mg capsule Take 1 capsule (5 mg total) by mouth. 12/02/19 24 Active folic acid (FOLVITE) 1 mg tablet Take 1 tablet (1 mg total) by mouth 1 (one) time each day. 10/25/19 24 025 Active meclizine (ANTIVERT) 25 mg tablet Take 1 tablet (25 mg total) by mouth 3 (three) times a day if needed for dizziness. 10/04/19 24 Active blood sugar diagnostic (FreeStyle Lite Strips) test strip TEST 3 TIMES A DAY. DX CODE E 11.51 08/12/19 24 Active aspirin 81 mg EC tablet Take 1 Tablet by mouth daily. 08/09/19 24 Active dulaglutide (Trulicity) 3 mg/0.5 mL pen injector injection Inject 3 mg into the skin once a week. 05/03/19 Active cholecalcifero l (VITAMIN D-3) 50 mcg (2,000 unit) tablet Take 1 tablet (2,000 Units total) by mouth 1 (one) time each day. 01/20/20 Active albuterol HFA (PROAIR HFA ; PROVENTIL HFA ; VENTOLIN HFA) 90 mcg/actuation inhaler Inhale 2 Puffs into the lungs 4 times daily as needed for Cough or Wheezing. 01/20/20 Active flash glucose scanning reader (FREESTYLE EMERSON 2 READER MISC) 1 Device by Does not apply route See Admin Instructions. Check suagrs fasting, before meals and as needed. 01/18/20 Active flash glucose sensor (FREESTYLE EMERSON 2 SENSOR MISC) 1 Each by Does not apply route every 14 days. 01/01/20 Active FREESTYLE LANCETS MISC TEST BLOOD SUGARS 3 TIMES A DAY BEFORE MEALS 03/17/20 Active clonazePAM (KlonoPIN) 0.5 mg tablet Take 1 Tablet by mouth at bedtime as needed. 03/15/20 Active timoloL (BetimoL) 0.5 % ophthalmic solution 1 Drop 2 times daily. Active alfuzosin (UROXATRAL) 10 mg 24 hr tablet TAKE 1 TABLET BY MOUTH EVERY DAY 90 tablet 1 03/15/20 Active cyanocobalamin (VITAMIN B-12) 250 mcg tablet Take 1 tablet (250 mcg total) by mouth. Active DOCOSAHEXAENOI C ACID ORAL Take 1 g by mouth daily. Active dorzolamide-ti moloL (COSOPT) 22.3-6.8 mg/mL ophthalmic solution Administer 1 drop into both eyes 2 (two) times a day. Active gabapentin (NEURONTIN) 600 mg tablet Take 1 tablet (600 mg total) by mouth 3 (three) times a day. Active ibuprofen (ADVIL,MOTRIN) 600 mg tablet TAKE 1-3 TABLETS BY MOUTH DAILY NEEDED FOR PAIN WITH FOOD 90 DAYS ORALLY 02/14/20 Active isosorbide dinitrate (ISORDIL) 30 mg tablet Take 1 tablet (30 mg total) by mouth. Active magnesium hydroxide (MILK OF MAGNESIA) 400 mg/5 mL suspension Take 15 mL by mouth. 01/07/20 Active timolol (TIMOPTIC) 0.5 % ophthalmic solution 08/24/20 24 Active venlafaxine XR (EFFEXOR-XR) 150 mg 24 hr capsule TAKE 1 CAPSULE BY MOUTH EVERY DAY WITH FOOD FOR 30 DAYS Active ammonium lactate (AmLactin) 12 % lotion Apply topically if needed for dry skin. 400 g 03/20/20 24 025 Active pen needle, diabetic (BD Ultra-Fine Micro Pen Needle) 32 gauge x 1/4 needle Inject 1 each under the skin 4 (four) times a day. 200 each 2 03/29/20 24 Active alcohol swabs (Alcohol Prep Pads) pads, medicated USE 3 TIMES A DAY TO CLEAN AREA FOR TESTING 300 each 5 04/09/20 24 Active atorvastatin (LIPITOR) 20 mg tablet Take 1 Tablet by mouth daily. 90 tablet 2 04/09/20 24 Active tiZANidine (ZANAFLEX) 4 mg tablet Take 1 tablet (4 mg total) by mouth 4 (four) times a day if needed for muscle spasms. 40 tablet 04/12/20 24 Active ferrous sulfate 324 mg (65 mg elemental iron) EC tablet Take 1 tablet (324 mg total) by mouth 1 (one) time each day with breakfast. Do not crush, chew, or split. 90 tablet 1 04/23/20 24 Active ammonium lactate (AmLactin) 12 % lotion Apply topically if needed for dry skin. 400 g 05/22/19 25 026 Active ciclopirox (LOPROX) 0.77 % gel Apply topically 2 (two) times a day. 45 g 05/22/19 25 025 Active metoprolol succinate (TOPROL-XL) 25 mg 24 hr tabletIndicati ons:Atheroscle rotic heart disease of [place] coronary artery without angina pectoris TAKE 1 TABLET BY MOUTH EVERY DAY 90 tablet 2 06/13/19 25 Active cephalexin (KEFTAB) 500 mg tablet Take 2 tablets (1000 mg) by mouth once for 1 dose. Then take 1 tablet by mouth every 12 hours for 7 days. 15 tablet 07/12/19 25 Active insulin aspart (NovoLOG Flexpen U-100 Insulin) 100 unit/mL (3 mL) injection pen Use 15-20 units three times a day 180 mL 1 07/17/19 25 Active losartan (COZAAR) 25 mg tabletIndicati ons:Atheroscle rotic heart disease of [place] coronary artery without angina pectoris TAKE 1 TABLET BY MOUTH EVERY DAY 90 tablet 1 07/26/19 25 Active metFORMIN XR (GLUCOPHAGE-XR ) 500 mg 24 hr tablet TAKE 2 TABLETS BY MOUTH TWICE A DAY WITH MEALS 360 tablet 1 07/25/19 25 Active traZODone (DESYREL) 100 mg tablet Take 2 tablets (200 mg total) by mouth at bedtime as needed for sleep. 60 tablet 08/01/19 25 Active buPROPion XL (WELLBUTRIN XL) 300 mg 24 hr tablet Take 1 tablet (300 mg total) by mouth 1 (one) time each day in the morning. Do not crush, chew, or split. 90 each 1 08/01/19 25 Active insulin aspart (NovoLOG Flexpen U-100 Insulin) 100 unit/mL (3 mL) injection pen Use 15-20 units three times a day. 180 mL 1 08/01/19 25 Active metFORMIN XR (GLUCOPHAGE-XR ) 500 mg 24 hr tablet TAKE 2 TABLETS BY MOUTH TWICE A DAY WITH MEALS 360 tablet 1 03/12/20 24 025 Discontinued losartan (COZAAR) 25 mg tabletIndicati ons:Atheroscle rotic heart disease of [place] coronary artery without angina pectoris TAKE 1 TABLET BY MOUTH EVERY DAY 90 tablet 1 03/07/20 24 025 Discontinued insulin aspart (NovoLOG Flexpen U-100 Insulin) 100 unit/mL (3 mL) injection pen Use 15-20 units three times a day 60 mL 1 04/09/20 24 025 Discontinued(Re order) buPROPion XL (WELLBUTRIN XL) 150 mg 24 hr tablet Take 1 tablet (150 mg total) by mouth 1 (one) time each day in the morning. Do not crush, chew, or split. 90 each 1 06/22/19 25 025 Discontinued traZODone (DESYREL) 150 mg tablet Take 1 tablet (150 mg total) by mouth at bedtime as needed for sleep. 90 tablet 1 06/22/19 25 025 Discontinued phenazopyridin e (PYRIDIUM) 100 mg tablet Take 1 tablet (100 mg total) by mouth 3 (three) times a day if needed (bladder pain) for up to 2 days. 6 tablet 07/12/19 25 03/21/2 025 Active Problems Problem Noted Date Diagnosed Date B12 deficiency 02/27/2024 Iron deficiency anemia, unspecified 02/27/2024 Low serum vitamin B12 01/23/2024 Helicobacter pylori gastritis 11/27/2023 Lung nodule 08/09/2023 Overview (02/07/2024): Last Assessment & Plan: The patient was incidentally noted to have a 0.3 cm nodule in the left lower lobe which was incidentally noted on his recent cardiac CT scan. The patient does not have any history of smoking. He also does not have any history of dust exposure, personal history of lung cancer, or family history of lung cancer. He also did not have any high risk jobs (for example, he was not a yard worker). As such, he likely has a low risk for malignancy. I recommended for the patient to discuss this further with his primary care physician to determine if he will need any follow-up chest imaging in the future. CAD (coronary artery disease) 01/14/2023 Overview (02/07/2024): Last Assessment & Plan: Patient has a history of moderate nonobstructive coronary artery disease based on cardiac CT scan completed June 2023 as outlined above. He is currently asymptomatic from a cardiac standpoint on medical therapy with aspirin, metoprolol succinate, and Imdur 15 mg orally daily. He is also on atorvastatin. At this point, he will continue current therapies. Patient advised to seek emergency medical attention by calling 911 if they were to develop severe dyspnea, chest pain that did not resolve with rest or nitroglycerin, or if they were to faint. Assessment & Plan (08/03/2024 9:52 AM EDT): The patient has a history of moderate nonobstructive coronary artery disease based on cardiac CT scan completed June 2023 as outlined above. He continues on medical therapy with aspirin, metoprolol, and isosorbide mononitrate as well as statin. During [...] and the less than 0.1% risk for NV, stroke or . The patient understands and [...] differential; Future Prothrombin time with INR; Future Kyphoscoliosis deformity of spine 06/29/2021 Overview (03/15/2024): Added automatically from request for surgery [id number] Lumbar degenerative disc disease 06/29/2021 Overview (03/15/2024): Added automatically from request for surgery [id number] Spinal stenosis of lumbar region 06/29/2021 Overview (03/15/2024): Added automatically from request for surgery [id number] Diabetes mellitus ([facility] V24, [facility] V28) Glaucoma 05/25/2021 Anxiety and depression 05/25/2021 Failed back syndrome 01/26/2021 Overview (02/07/2024): Follows with neurology. (Jame) Lumbar spinal stenosis 02/27/2020 Erectile dysfunction 12/21/2019 Depression 08/25/2017 PTSD (post-traumatic stress disorder) 08/11/2017 Chronic angle-closure glaucoma of both eyes, mil d stage 07/06/2017 Varicose veins of legs 03/31/2017 Osteoarthritis of left knee 12/29/2016 HTN (hypertension) 04/05/2016 Overview (02/07/2024): Last Assessment & Plan: Patient's blood pressure is well-controlled today. He will continue his current antihypertensive medication regimen as prescribed. Assessment & Plan (08/03/2024 9:52 AM EDT): Patient's blood pressure is well-controlled today. He will continue his current antihypertensive medication regimen as prescribed. Orders: ECG 12 lead Type II diabetes mellitus wi th peripheral circulatory disorder ([facility] V24, [facility] V28) 03/26/2015 HLD (hyperlipidemia) 09/18/2013 Overview (02/07/2024): Last Assessment & Plan: Patient has history of hyperlipidemia as well as a history of coronary disease. Last LDL cholesterol this month was noted to be 50 and at goal. He will continue his current dose of atorvastatin as prescribed. Assessment & Plan (08/03/2024 9:52 AM EDT): Patient has history of hyperlipidemia as well as a history of coronary artery disease. Last fasting lipid panel at goal at 58. He will continue his current medication regimen with atorvastatin as prescribed. Resolved Problems Problem Noted Date Diagnosed Date Resolved Date Hyperlipidemia 05/25/2021 08/03/2024 Hypertension 05/25/2021 08/03/2024 Chronic cough 04/02/2019 08/03/2024 Overview (02/07/2024): Normal CXR. Checking PFT testing and referring to pulmonology on 04/02/1919. Grade I hemorrhoids 08/01/2017 08/04/19 25 Encounters Date Type Department Care Team Description 08/03/2024 9:10 AM EDT Office Visit [facility] [address] [place] [address] Cathy Haynes NP Primary hypertension (Primary Dx); Coronary artery disease involving [place] coronary artery of [place] heart without angina pectoris; Mixed hyperlipidemia 08/03/2024 Telephone [facility] [address] [place] [phone] Cathy Haynes NP 08/01/2024 2:12 PM EDT - 08/01/2024 11:59 PM EDT Hospital Encounter [facility] [address] [place] [address] Jennifer Wills MD B12 deficiency (Primary Dx) Discharge Disposition: Home or Self Care 07/31/2024 11:00 AM EDT Office Visit [address] [phone] Fracisco Santos PA Depression, unspecified depression type (Primary Dx); Insomnia, unspecified type; Type 2 diabetes mellitus with other specified complication, with long-term current use of insulin ([facility] V24, [facility] V28) 07/12/2024 Telephone [facility] [address] [phone] Kin Chino PA Medication Problem 07/11/2024 9:30 AM EDT Office Visit Walk-In [address] [phone] Kin Chino PA Acute cystitis without hematuria (Primary Dx) 07/10/2024 Nurse Triage [address] [phone] Clare Melchor RN 06/22/2024 9:00 AM EST Office Visit [address] [phone] Christopher Blue MD Depression, unspecified depression type (Primary Dx); Primary hypertension; Primary insomnia 06/19/2024 9:30 AM EST - 06/19/2024 11:59 PM EST Hospital Encounter [facility] [address] [place] [phone] Jennifer Wills MD B12 deficiency (Primary Dx) Discharge Disposition: Home or Self Care 06/18/2024 11:00 AM EST Office Visit Adult [address] [phone] Christopher Blue MD Encounter for subsequent annual wellness visit (AWV) in Medicare patient (Primary Dx); Controlled type 2 diabetes mellitus with complication, with long-term current use of insulin ([facility] V24, [facility] V28); Hypercholesterolemia; Encounter for long-term (current) use of medications; Primary hypertension; Weight gain; Memory deficit 06/04/2024 Telephone Gastroenterology [facility] [address] [facility] [address] [place] [address] Peggy Valentine NP 05/31/2024 Telephone Gastroenterology [facility] [address] [facility] [address] [place] [address] Peggy Valentine NP 05/22/2024 8:45 AM EST Office Visit Orthopedic Surgery - [place] [address] [facility] [address] [place] [phone] Rayo Kenny DPM Xerosis of skin (Primary Dx); Dermatophytosis of nail; Metatarsalgia of both feet; Type II diabetes mellitus with peripheral circulatory disorder ([facility] V24, [facility] V28); Pain in toe of right foot; Pain in toe of left foot; Diabetic mononeuropathy simplex ([facility] V24, [facility] V28); Corns and callosities [L84] 05/22/2024 Telephone Gastroenterology [facility] [address] [facility] [address] [place] [address] Peggy Valentine NP Provider Call Back 05/21/2024 9:51 AM EST - 05/21/2024 11:59 PM EST Hospital Encounter [facility] [address] [facility] [address] [place] [phone] Jennifer Wills MD B12 deficiency (Primary Dx) Discharge Disposition: Home or Self Care 05/10/2024 Telephone Endocrinology [place] [address] [place] [phone] Mackenzie Simon PA prior authorization from Last 3 Months Immunizations Name Administration Dates Next Due Influenza Quadravalent, MDCK , 0.5ml, preservative free (Flucelvax) 6mo and older 06/16/2023 Influenza trivalent, 0.5mL, preservative free (Fluarix; FluLaval; Fluzone) ages 6mo and older (Afluria) 3 years and older 12/20/2016,04/10/2016,02/11/2015,04/30 Influenza, Unspecified 02/11/2015 PPD Test 01/22/2014 Pneumococcal conjugate 20 va lent (Prevnar 20, PCV 20) 2mo and older 06/16/2023 Pneumococcal polysaccharide 23 valent (Pneumovax 23) 2yo and older 04/09/2021,03/30/2020,01/22/2014 Tdap Tetanus diptheria acell ular pertussis (Boostrix; Adacel) 7yo and older 04/30/2014 Zoster Live 02/06/2015,01/28/2015 Zoster recombinant (Shingrix ) 19yo and older 07/11/2019 Surgical History Surgery Date Site/Laterality Comments COLONOSCOPY 05/18/2013 PROCEDURE: HISTORICAL COLONOSCOPY; COMMENT: adenoma; repeat in 5 years COLONOSCOPY W/ POLYPECTOMY 08/01/2017 PROCEDURE: TN COLSC FLX W/RMVL OF TUMOR POLYP LESION SNARE TQ; COMMENT: reactive lymphoid aggregates and hemorrhoids; repeat in 5 yrs OTHER SURGICAL HISTORY PROCEDURE: LUMBAR SPINE FUSION, LAT TRANSVERSE Medical History Medical History Date Comments Diabetes mellitus type 2, uncontrolled, without complications 03/26/2015 DX:Diabetes mellit type 2, uncontrolled, without complications HTN (hypertension) 04/05/2016 DX:HTN (hyper tension) Chronic angle-closure glauco ma of both eyes, mild stage 07/06/2017 DX:Chronic angle-closure gla ucoma of both eyes, mild stage Lumbar spinal stenosis 02/27/2020 DX:Lumbar spinal stenosis B12 deficiency 02/27/2024 Family History Medical History Relation Name Comments Colon cancer Brother Diabetes Father Hypertension Father cerebral bleed Diabetes Mother Relation Name Status Comments Brother Alive Father Mother Social History Tobacco Use Types Packs/Day Years Used Date Smoking Tobacco: Never Smokeless Tobacco: Never Tobacco Cessation:Counseling Given: Not Answered Alcohol Use Standard Drinks/Week Comments No 0 (1 standard drink = 0.6 oz pur e alcohol) Sex and Gender Information Value Date Recorded Sex Assigned at Male 05/21/2024 9:50 AM EST Legal Sex Male 10:42 AM EST Gender Identity Male 05/21/2024 9:50 AM EST Sexual Orientation Choose not to disclose 2024 9:50 AM EST Obstetrics History Last Filed Vital Signs Vital Sign Reading Time Taken Comments Blood Pressure 128/82 08/03/2024 9:09 AM EDT Pulse 69 08/03/2024 9:09 AM EDT Temperature 36.6 ??C (97.8 ??F) 08/01/2024 2:22 PM ED T Respiratory Rate 18 06/22/2024 9:04 AM EST Oxygen Saturation 99% 08/03/2024 9:09 AM EDT Inhaled Oxygen Concentration - - Weight 88.7 kg (195 lb 8 oz) 08/03/2024 9:09 AM EDT Height 177.8 cm (5' 10 ) 08/03/2024 9:09 AM EDT Body Mass Index 28.05 08/03/2024 9:09 AM EDT Plan of Treatment Upcoming Encounters Date Type Department Care Team (Late st Contact Info) Description 08/09/2024 9:40 AM EDT Office Visit Endocrinology [address] [phone] Mackenzie Simon PA [address] [place] [phone] 08/20/2024 9:15 AM EDT Office Visit Orthopedic Surgery - [place] [address] [phone] Rayo Kenny DPM [address] [phone] 08/29/2024 11:30 AM EDT Appointment [facility] [address] [facility] [address] [place] [phone] 09/20/2024 9:45 AM EDT Office Visit [facility] - [address] [phone] Fracisco Santos PA [address] [place] [phone] 10/22/2024 10:00 AM EDT Office Visit [facility] Hematology Oncology [address] [place] [phone] Francine Morris PA [address] [place] [address] 01/08/2025 9:45 AM EDT Office Visit Adult Medicine [facility] [address] [place] [phone] Fracisco Santos PA [address] [place] [address] Health Maintenance Due Date Last Done Comments Diabetes: Annual Foot Exam 02/04/1965 Zoster Vaccines (3 of 3) 09/05/2019 020, 02/06/2015, 01/28/2015 Social Influencers of Health Screening 04/03/2022 COVID-19 Vaccine ( season) 2023 03/20/2022, 11/24/2021, 03/03/2021, Additional history exists DTaP,Tdap,and Td Vaccines (2 - Td or Tdap) 04/30/2024 04/30/2014 Diabetes: Blood Sugar Control Test (HGBA1C) 01/31/2025 08/01/2024, 04/04/2024, 01/03/2024, Additional history exists Diabetes: Annual Retina Eye Exam 03/08/2025 03/08/2024 Medicare Annual Wellness Visit 06/18/2025 06/18/2024 Falls Risk Assessment 06/19/2025 06/19/2024 Depression Screening 07/24/2025 07/24/2024, 07/18/19 Diabetes: Annual Urine Albumin-Creatinine Ratio (uACR) 08/01/2025 08/01/2024, 06/19/2024, 06/16/2023 Diabetes: Annual GFR (Glomerular Filtration Rate) 08/01/2025 08/01/2024, 06/19/2024, 01/03/2024, Additional history exists Hypertension/CHF/CAD Annual BMP Blood Test 08/01/2025 08/01/2024, 06/19/2024, 01/03/2024, Additional history exists Colorectal Cancer Screening: Colonoscopy 01/13/2028 01/12/2023 Cholesterol Screening (Lipid Panel) 06/19/2029 06/19/2024, 01/03/2024, 01/03/2024, Additional history exists Hepatitis C Screening Completed 01/22/2013 Pneumococcal Vaccine: 50+ Years Completed 06/16/2023, 04/09/2021, 03/30/2020, Additional history exists Influenza Vaccine Completed 01/23/2024, , 12/20/2016, Additional history exists RSV Immunization Adult Patients Completed 01/23/2024 HIB Vaccines Aged Out No longer eligi [...] on patient's age to complete this topic MMR Vaccines Aged Out No longer eligi ble based on patient's age to complete this topic Meningococcal ACWY Vaccine Aged Out N o longer eligible based on patient's age to complete this topic Meningococcal B Vaccine Aged Out No l onger eligible based on patient's age to complete this topic RSV Immunization Patients Under 20 months Aged Out No longer eligible based on patient's age to complete this topic Varicella Vaccines Aged Out No longer eligible based on patient's age to complete this topic Procedures Procedure Name Priority Date/Time Associated Diagnosis Comments ECG 12-LEAD Routine 08/03/2024 9:25 AM EDT Primary hypertension HEMOGLOBIN A1C Routine 08/01/2024 9:31 AM EDT Type II diabetes mellitus with peripheral circulatory disorder (CMS/HCC V24, CMS/HCC V28) BASIC METABOLIC PANEL Routine 08/01/2024 9:31 AM EDT Type II diabetes mellitus with peripheral circulatory disorder (CMS/HCC V24, CMS/HCC V28) Primary hypertension MICROALBUMIN CREATININE URINE RATIO Routine 08/01/2024 9:31 AM EDT Type II diabetes mellitus with peripheral circulatory disorder (CMS/HCC V24, CMS/HCC V28) Primary hypertension URINALYSIS WITH REFLEX MICROSCOPIC Routine 07/17/2024 10:20 AM EDT Urinary tract infection without hematuria, site unspecified URINALYSIS WITH REFLEX MICROSCOPIC Routine 07/17/2024 10:20 AM EDT Urinary tract infection without hematuria, site unspecified CULTURE URINE Routine 07/17/2024 10:20 AM EDT Urinary tract infection without hematuria, site unspecified URINALYSIS MICROSCOPIC ONLY Routine 07/11/2024 4:23 PM EDT Acute cystitis without hematuria URINALYSIS MICROSCOPIC ONLY Routine 07/11/2024 4:23 PM EDT Acute cystitis without hematuria CULTURE URINE Routine 07/11/2024 4:23 PM EDT Acute cystitis without hematuria POC URINE NON-AUTO W/O MICRO Routine 07/11/2024 11:34 AM EDT Acute cystitis without hematuria THYROID STIMULATING HORMONE WITH REFLEX TO FREE T4 AND FREE T3 Routine 06/19/2024 10:11 AM EST Weight gain MICROALBUMIN CREATININE URINE RATIO Routine 06/19/2024 10:11 AM EST Controlled type 2 diabetes mellitus with complication, with long-term current use of insulin ([facility] V24, [facility] V28) COMPREHENSIVE METABOLIC PANEL Routine 06/19/2024 10:11 AM EST Controlled type 2 diabetes mellitus with complication, with long-term current use of insulin ([facility] V24, [facility] V28) Encounter for long-term (current) use of medications Primary hypertension LIPID PANEL WITH REFLEX TO DIRECT LDL Routine 06/19/2024 10:11 AM EST Hypercholesterolemia HELICOBACTER PYLORI ANTIGEN, STOOL Routine 05/16/2024 11:01 AM EST Helicobacter pylori (H. pylori) infection EXTERNAL DIABETIC RETINA EYE EXAM 03/08/2024 DEPRESSION SCREENING Routine 07/18/2023 COLONOSCOPY Routine 01/12/2023 HEPATITIS C SCREENING Routine 01/22/2013 from Last 3 Months or Most Recently Relevant to Health Maintenance Results * ECG 12 lead (08/03/2024 9:25 AM EDT) Ventricular Rate ECG 67 BPM GEMUSE Atrial Rate 67 BPM GEMUSE P-R Interval 166 ms GEMUSE QRS Duration 100 ms GEMUSE Q-T Interval 388 ms GEMUSE QTc 409 ms GEMUSE P Wave [place] 70 degrees GEMUSE R [place] 71 degrees GEMUSE T [place] 67 degrees GEMUSE ECG Interpretation Normal sinus rhythm Normal ECG Confirmed by EMMANUEL KOHLER ([id number]) on 08/03/2024 9:38:12 AM GEMUSE 08/03/2024 9:25 AM EDT 08/03/2024 9:38 AM EDT us Cathy Haynes RESEARCH DEVELOPMENT MANAGER ECG ORDERABLES Final Resul t GEMUSE * Microalbumin creatinine urine ratio (08/01/2024 9:31 AM EDT) Only the most recent of2 resultswithin the time period is included. Creatinine, Urine 83.0 mg/dL LAB CHEMISTRY METHOD 08/01/2024 11:47 AM EDT [facility] Microalb, Ur 6.2 0.0 - 29.0 mg/L LAB CHEMISTRY METHOD 08/01/2024 11:47 AM EDT [facility] Microalb/Creat Ratio 7 <30 mg/g creat LAB CHEMISTRY METHOD 08/01/2024 11:47 AM EDT [facility] Urine Urine specimen obtained by clean catch procedure / Unknown Non-blood Collection / Unknown 08/01/2024 9:31 AM EDT 08/01/2024 10:35 AM EDT us Mackenzie LUZ LAB URINE ORDERABLES Final Resul t Performing Organization Address [facility]/ZIP Co de Phone Number [facility] [address] [place] [address], [place] [phone] * Hemoglobin A1c (08/01/2024 9:31 AM EDT) Pathologist [facility] Hemoglobin A1C 7.3 % 08/01/2024 2:32 PM EDT [facility] Mean Bld Glu Estim. 163 mg/dL 08/01/2024 2:32 PM EDT [facility] Blood Venous blood specimen / Unknown Venipuncture / Unknown 08/01/2024 9:31 AM EDT 08/01/2024 10:38 AM EDT us Mackenzie LUZ LAB BLOOD ORDERABLES Final Resul t Performing Organization Address [facility]/ZIP Co de Phone Number [facility] [address] [place] [address], [place] [phone] * (ABNORMAL) Basic metabolic panel (08/01/2024 9:31 AM EDT) Sodium 137 133 - 145 mmol/L LAB CHEMISTRY METHOD 08/01/2024 1:35 PM EDT [facility] Potassium 4.3 3.5 - 5.5 mmol/L LAB CHEMISTRY METHOD 08/01/2024 1:35 PM EDT [facility] Chloride 104 96 - 110 mmol/L LAB CHEMISTRY METHOD 08/01/2024 1:35 PM EDT [facility] CO2 27 21 - 32 mmol/L LAB CHEMISTRY METHOD 08/01/2024 1:35 PM EDT [facility] Anion Gap 6 3 - 11 LAB CHEMISTRY METHOD 08/01/2024 1:35 PM EDT [facility] Glucose 65(L) 70 - 100 mg/dL LAB CHEMISTRY METHOD 08/01/2024 1:35 PM EDT [facility] BUN 14 5 - 25 mg/dL LAB CHEMISTRY METHOD 08/01/2024 1:35 PM EDT [facility] Creatinine 0.88 0.70 - 1.30 mg/dL LAB CHEMISTRY METHOD 08/01/2024 1:35 PM EDT [facility] eGFR 93 >=60 mL/min/1. 73m2 LAB CHEMISTRY METHOD 08/01/2024 1:35 PM EDT [facility] Comment:Calculation based on the??Chronic Kidney Disease Epidemiology Collaboration (CKD-EPI) equation refit??without adjustment for race. BUN/Creatinine Ratio 15.9 LAB CHEMISTRY METHOD 08/01/2024 1:35 PM EDT [facility] Calcium 9.0 8.5 - 10.5 mg/dL LAB CHEMISTRY METHOD 08/01/2024 1:35 PM EDT [facility] Blood Venous blood specimen / Unknown Venipuncture / Unknown 08/01/2024 9:31 AM EDT 08/01/2024 10:35 AM EDT us Mackenzie LUZ LAB BLOOD ORDERABLES Final Resul t [facility] [address] [place] [address], * Urinalysis with reflex microscopic (07/17/2024 10:20 AM EDT) Specific [place] Urine 1.017 1.003 - 1.030 LAB URINALYSIS - AUTOMATED METHOD 07/17/2024 10:53 AM T [facility] pH, Urine 8.0 5.0 - 8.0 pH LAB URINALYSIS - AUTOMATED METHOD 07/17/2024 10:53 AM T [facility] Leukocytes, Urine Negative Negative LAB URINALYSIS - AUTOMATED METHOD 07/17/2024 10:53 AM [facility] Nitrite, Urine Negative Negative LAB URINALYSIS - AUTOMATED METHOD 07/17/2024 10:53 AM [facility] Protein, Urine Negative <=Trace mg/dL LAB URINALYSIS - AUTOMATED METHOD 07/17/2024 10:53 AM [facility] Glucose, Urine Negative Negative mg/dL LAB URINALYSIS - AUTOMATED METHOD 07/17/2024 10:53 AM [facility] Ketones, Urine Negative Negative mg/dL LAB URINALYSIS - AUTOMATED METHOD 07/17/2024 10:53 AM [facility] Urobilinogen, Urine 0.2 0.2 - 1.0 mg/dL LAB URINALYSIS - AUTOMATED METHOD 07/17/2024 10:53 AM [facility] Bilirubin, Urine Negative Negative LAB URINALYSIS - AUTOMATED METHOD 07/17/2024 10:53 AM [facility] Blood, Urine Negative Negative LAB URINALYSIS - AUTOMATED METHOD 07/17/2024 10:53 AM [facility] Urine Urine specimen obtained by clean catch procedure / Unknown Non-blood Collection / Unknown 07/17/2024 10:20 AM EDT 07/17/2024 10:46 AM EDT us Christopher Blue MD LAB URINE ORDERABLES Final Resu lt [facility] [address] [place] [address], * Culture urine (07/17/2024 10:20 AM EDT) Only the most recent of2 resultswithin the time period is included. Culture, Urine No growth 07/18/2024 10:07 AM EDT [facility] Urine Urine specimen obtained by clean catch procedure / Unknown Non-blood Collection / Unknown 07/17/2024 10:20 AM EDT 07/17/2024 10:44 AM EDT us Christopher Blue MD LAB MICROBIOLOGY - GENERAL [place] Final Result Performing Organization Address [facility]/ZIP Co de Phone Number [facility] [address] [place] [address], [place] [phone] * (ABNORMAL) Urinalysis microscopic only (07/11/2024 4:23 PM EDT) RBC, Urine 4.3(H) 0 - 4 /HPF LAB URINALYSIS - AUTOMATED METHOD 07/11/2024 7:34 PM EDT [facility] WBC, Urine 127.4(H) 0 - 4 /HPF LAB URINALYSIS - AUTOMATED METHOD 07/11/2024 7:34 PM EDT [facility] Squamous Epithelial, Urine 4 0 - 60 /LPF LAB URINALYSIS - AUTOMATED METHOD 07/11/2024 7:34 PM EDT [facility] Bacteria, Urine Many(A) Negative /HPF LAB URINALYSIS - AUTOMATED METHOD 07/11/2024 7:34 PM EDT [facility] Hyaline Casts, Urine 2.8 0 - 3 /LPF LAB URINALYSIS - AUTOMATED METHOD 07/11/2024 7:34 PM EDT [facility] Urine Urine specimen obtained by clean catch procedure / Unknown Non-blood Collection / Unknown 07/11/2024 4:23 PM EDT 07/11/2024 4:23 PM EDT Kin LUZ LAB URINE ORDERABLES Final Result Performing Organization Address City/[facility]/ZIP Co de Phone Number [facility] [address] [place] [address], [place] [phone] * (ABNORMAL) POC Urine Non-Auto W/O Micro (07/11/2024 11:34 AM EDT) [facility] GLUCOSE POC 1+(A) Negative, Trace mg/dL Leukocytes UA POC 2+(A) Negative Nitrite UA POC Negative Urobilinogen UA POC >=8.0 E.U./dL mg/dL Protein UA POC 30(A) Negative PH UA POC 5 Blood UA POC Trace(A) Negative SPECIFIC GRAVITY POC 1.015 Ketones UA POC Negative Negative Bilirubin UA POC Negative Negative Appearance UA POC Cloudy Color UA POC Yellow Urine Urine specimen obtained by clean catch procedure / Unknown 07/11/2024 11:34 AM EDT Kin LUZ POINT OF CARE TEST ENTER/E DIT ORDERABLES Final Result * Thyroid stimulating hormone with reflex to free t4 and free t3 (06/19/2024 10:11 AM EST) [facility] TSH 2.21 0.40 - 4.00 mcIU/mL LAB CHEMISTRY METHOD 06/19/2024 2:49 PM [facility] Blood Venous blood specimen / Unknown Venipuncture / Unknown 06/19/2024 10:11 AM EST 06/19/2024 10:11 AM EST Christopher Blue MD LAB BLOOD ORDERABLES Final Resu lt [facility] [address] [place] [address], * (ABNORMAL) Lipid panel with reflex to direct LDL (06/19/2024 10:11 AM EST) [facility] Cholesterol 141 0 - 200 mg/dL LAB CHEMISTRY METHOD 06/19/2024 2:58 PM EST [facility] Triglycerides 161(H) 0 - 150 mg/dL LAB CHEMISTRY METHOD 06/19/2024 2:58 PM [facility] HDL 51 >=40 mg/dL LAB CHEMISTRY METHOD 06/19/2024 2:58 PM [facility] LDL Calculated 58 0 - 100 mg/dL LAB CHEMISTRY METHOD 06/19/2024 2:58 PM [facility] VLDL Cholesterol Papa 32.2 mg/dL LAB CHEMISTRY METHOD 06/19/2024 2:58 PM [facility] Non HDL Chol. (LDL+VLDL) 90 <145 mg/dL LAB CHEMISTRY METHOD 06/19/2024 2:58 PM [facility] Chol/HDL Ratio 2.8 0.0 - 4.4 LAB CHEMISTRY METHOD 06/19/2024 2:58 PM [facility] Blood Venous blood specimen / Unknown Venipuncture / Unknown 06/19/2024 10:11 AM EST 06/19/2024 10:11 AM EST us Christopher Blue MD LAB BLOOD ORDERABLES Final Resu lt [facility] [address] [place] [address], * Comprehensive metabolic panel (06/19/2024 10:11 AM EST) Sodium 140 133 - 145 mmol/L LAB CHEMISTRY METHOD 06/19/2024 2:58 PM [facility] Potassium 4.4 3.5 - 5.5 mmol/L LAB CHEMISTRY METHOD 06/19/2024 2:58 PM [facility] Chloride 106 96 - 110 mmol/L LAB CHEMISTRY METHOD 06/19/2024 2:58 PM [facility] CO2 28 21 - 32 mmol/L LAB CHEMISTRY METHOD 06/19/2024 2:58 PM [facility] Anion Gap 6 3 - 11 LAB CHEMISTRY METHOD 06/19/2024 2:58 PM [facility] Glucose 94 70 - 100 mg/dL LAB CHEMISTRY METHOD 06/19/2024 2:58 PM [facility] BUN 18 5 - 25 mg/dL LAB CHEMISTRY METHOD 06/19/2024 2:58 PM [facility] Creatinine 0.89 0.70 - 1.30 mg/dL LAB CHEMISTRY METHOD 06/19/2024 2:58 PM [facility] eGFR 92 >=60 mL/min/1. 73m2 LAB CHEMISTRY METHOD 06/19/2024 2:58 PM [facility] Comment:Calculation based on the??Chronic Kidney Disease Epidemiology Collaboration (CKD-EPI) equation refit??without adjustment for race. BUN/Creatinine Ratio 20.2 LAB CHEMISTRY METHOD 06/19/2024 2:58 PM [facility] Calcium 9.2 8.5 - 10.5 mg/dL LAB CHEMISTRY METHOD 06/19/2024 2:58 PM [facility] AST (SGOT) 27 10 - 42 unit/L LAB CHEMISTRY METHOD 06/19/2024 2:58 PM [facility] ALT (SGPT) 38 10 - 60 unit/L LAB CHEMISTRY METHOD 06/19/2024 2:58 PM [facility] Alkaline Phosphatase 75 42 - 121 unit/L LAB CHEMISTRY METHOD 06/19/2024 2:58 PM [facility] Total Protein 6.6 6.0 - 8.0 g/dL LAB CHEMISTRY METHOD 06/19/2024 2:58 PM [facility] Albumin 3.8 3.2 - 5.0 g/dL LAB CHEMISTRY METHOD 06/19/2024 2:58 PM [facility] Total Bilirubin 0.9 0.0 - 1.4 mg/dL LAB CHEMISTRY METHOD 06/19/2024 2:58 PM [facility] Blood Venous blood specimen / Unknown Venipuncture / Unknown 06/19/2024 10:11 AM EST 06/19/2024 10:11 AM EST us Christopher Blue MD LAB BLOOD ORDERABLES Final [facility]u lt [facility] ([email or web address] [address] [place] [address], * (ABNORMAL) Helicobacter pylori antigen, stool (05/16/2024 11:01 AM EST) Helicobacter Pylori Ag DETECTED( A) Not detected 05/18/2024 3:19 PM EST [facility] Comment: This test was performed at [facility] using a chemiluminescent immunoassay intended for the qualitative determination of helicobacter pylori (H. pylori) antigen in human stool. The test is an aid in the diagnosis of patients suspected of H. pylori infection and to measure post therapy response from patients. Assay results should be used in conjunction with other clinical and laboratory data to assist the clinician in making individual patient management decisions. A negative test result does not preclude the possibility of the presence of H. pylori antigen in the specimen, which may occur if the level of antigen is below the detection limit of the test. Antimicrobials, proton pump inhibitors, and bismuth preparations are known to suppress H. pylori and, if ingested, may give a false negative result. In these cases a new fecal sample should be collected and tested 14 days after treatment has stopped. Positive results from patients that have used antibiotics, PPIs, or bismuth compounds in the 14 days prior to fecal sample collection are still considered accurate. This assay has not been evaluated in a pediatric population. This test has been approved as an in vitro diagnostic by the [place] Food and Drug Administration. Test performed at [facility], [address] , [place], [place] ??[address] ? [phone] Andie Correa MD, PhD - Ged Preparation Teacher Stool Rectum structure / Unknown Non-blood Collection / Unknown 05/16/2024 11:01 AM EST 05/16/2024 11:01 AM EST Peggy Valentine NP LAB BODY FLUIDS AND STOOLS [place] Final Result [facility] [address] [place] [address] * External Diabetic Retina Eye Exam Report (03/08/2024) Anatomical Region Laterality Modality Ultrasound Provider Onbase IMG US PROCEDURES Final Resul t * Depression Screening (07/18/2023) [facility] Depression Screening Abstracted Historical Provider MD HEALTH MAINTENANCE Final Result * Colonoscopy (01/12/2023) [facility]ologist [facility] Colonoscopy Abstracted, No interpretation Anatomical Region Laterality Modality Other Historical Provider MD HEALTH MAINTENANCE Final Result * Hepatitis C Screening (01/22/2013) [facility]ologist [facility] Hepatitis C Screening Abstracted Historical Provider MD HEALTH MAINTENANCE Final Result from Last 3 Months or Most Recently Relevant to Health Maintenance Insurance [place] Member Subscriber Plan / Payer (Ef fective 2024-Present) Name:Cassandra López Relation to Subscriber:Self Name:Cassandra López Payer ID:[id number] Group ID:Not on file Type:Not on file Address[facility] ATTN:CLAIMS [address] [place] [address] [place] [address] Advance Directives * Full Code - Confirmed (Latest Code Status on File) Date Activated Date Inactivated Comments 06/18/2024 11:51 AM This code sta tus was ascertained in the following way: Code status discussion: discussion with patient To update the patient's code status, place a code status order. Do not modify or discontinue any currently active code status orders. Care Teams Salon Leader Relationship Specialty Start Date End Date Christopher Blue MD [address] [place] [id number] PCP - General Internal Medicine 02/27/24
--- OUTSIDE RECORDS SUMMARY | 2024-08-06 13:26 | XMS_ITS | Encounter Summary ---
Author Organization [facility] Address [address] [place] [address] Care Team Providers Care Team Leader Surgery Name Role Phone Lamonte Wakefield RD Primary Care Provider [phone] Encounter Details Date Type Department Care Team (Late st Contact Info) Description 08/05/2021 Dental Interim Note [facility] [address] [place] [phone] Moshe Turner DDS [address], [place] [id number] Social History Tobacco Use Types Packs/Day Years Used Date Smoking Tobacco: Never Assessed Social Connections Answer Date Recorded Social Connections and Isolation 0 09/04/2020 Financial Resource Strain Answer Date R ecorded Financial Resource Strain 0 2020 Stress Answer Date Recorded Stress 0 09/04/2020 Physical Activity Answer Date Recorded Physical Activity 0 09/04/2020 Food Insecurity Answer Date Recorded Food 0 09/04/2020 Transportation Needs Answer Date Record ed Transportation 0 09/04/2020 Housing Stability Answer Date Recorded Housing 0 09/04/2020 Safety and Environment Answer Date Gera rded Safety 0 09/04/2020 Utilities Answer Date Recorded Utilities 0 09/04/2020 Employment Answer Date Recorded Employment 0 09/04/2020 Sex and Gender Information Value Date Recorded Sex Assigned at Male 07/20/2017 7:28 AM PDT Legal Sex Male 9:22 AM PDT Gender Identity Male 07/20/2017 7:28 AM PDT Sexual Orientation Straight 07/20/2017 7: 28 AM PDT COVID-19 Exposure Response Date Recorded In the last 10 days, have yo u been in contact with someone who was confirmed or suspected to have Coronavirus/COVID-19? No / Unsure 08/05/2021 2:11 PM EDT documented as of this encounter Plan of Treatment Not on file documented as of this encounter Visit Diagnoses Not on filedocumented in this encounter Care Teams Team Leader Surgery Relationship Specialty Start Date End Date Lamonte Wakefield RD 1983 [address] [place] [address] PCP - General Nutrition 12/18/13 documented as of this encounter
--- OUTSIDE RECORDS SUMMARY | 2024-08-06 13:26 | XMS_ITS | Encounter Summary ---
Author Organization [facility] Address [address] [place] [address] Care Team Providers Care Nuclear Plant Equipment Operator Name Role Phone Christopher Blue MD Primary Care Provider [phone] Encounter Details Date Type Department Care Team (Late st Contact Info) Description 08/03/2024 Telephone [facility] [place] [address] [place] [address] Cathy Haynes NP [address] [place] [address] [address] [place] [address] Social History Tobacco Use Types Packs/Day Years [...] AM EST documented as of this encounter Progress Notes * Cathy Haynes NP - 08/03/2024 9:44 AM EDT Patient needs [facility] at [facility] Left heart catheterization: Diagnosis: CAD Anticoagulation: No Diabetic: Yes Dialysis: No Lovenox needed: No Contrast Allergy: No Hydration needed: No Premedication needed: No documented in this encounter Plan of Treatment Upcoming Encounters Date Type Department Care Team (Late st Contact Info) Description 08/09/2024 9:40 AM EDT Office Visit Endocrinology [address] [phone] Mackenzie Simon PA [address] [place] [address] 08/20/2024 9:15 AM EDT Office Visit Orthopedic Surgery [place] [address] [phone] Rayo Kenny, DPM [address] [address] 08/29/2024 11:30 AM EDT Appointment [facility] [address] [facility] 2nd [place] [phone] 09/20/2024 9:45 AM EDT Office Visit Adult Medicine [address] [phone] Fracisco Santos PA [address] [place] [phone] 10/22/2024 10:00 AM EDT Office Visit [facility] Hematology Oncology [address] [place] [phone] Francine Morris PA [address] [place] [address] 01/08/2025 9:45 AM EDT Office Visit Adult Medicine [address] [phone] Fracisco Santos PA [address] [place] [phone] documented as of this encounter Visit Diagnoses Not on filedocumented in this encounter Additional Health Concerns Assessment Noted Time PHQ-9 Depression Total Score: 9 07/25/19 25 11:42 AM EDT documented as of this encounter Care Teams Nuclear Plant Equipment Operator Relationship Specialty Start Date End Date Christopher Blue MD [address] [place] [id number] PCP - General Internal Medicine 02/27/24 documented as of this encounter
--- OUTSIDE RECORDS SUMMARY | 2024-08-06 13:26 | XMS_ITS | Encounter Summary ---
Author Organization [facility] Address [address] [place] [address] Care Team Providers Care Sizer Machine Name Role Phone Christopher Blue MD Primary Care Provider [phone] Reason for Visit * Episode Based Medications (Routine) - Authorized Specialty Diagnoses / Procedures Referred By Sheila valdez Referred To Contact Diagnoses B12 deficiency Jennifer Wills MD [address] [place] [address] Phone: tel: fax: [address] [address] Phone: tel: fax: Referral ID Status Reason Start Date Expiration Date V isits Requested Visits Authorized [id number] Authorized 02/27/2024 02/26/2025 1 12 Encounter Details Date Type Department Care Team (Latest Contact Info) Description 08/01/2024 2:12 PM EDT - 08/01/2024 11:59 PM EDT Hospital Encounter [address] [address] Jennifer Wills MD [address] [place] [address] B12 deficiency (Primary Dx) Discharge Disposition: Home or Self Care Social History Tobacco Use Types Packs/Day Years [...] Sign Reading Time Taken Comments Blood Pressure 122/68 08/01/2024 2:22 PM EDT Pulse 87 08/01/2024 2:22 PM EDT Temperature 36.6 ??C (97.8 ??F) 08/01/2024 2:22 PM ED T Respiratory Rate - - Oxygen Saturation 99% 08/01/2024 2:22 PM EDT Inhaled Oxygen Concentration - - Weight - - Height - - Body Mass Index - - documented in this encounter Medications at Time of Discharge albuterol HFA (PROAIR HFA ; PROVENTIL HFA ; VENTOLIN HFA) 90 mcg/actuation inhaler Inhale 2 Puffs into the lungs 4 times daily as needed for Cough or Wheezing. 01/19/2023 alcohol swabs (Alcohol Prep Pads) pads, medicated USE 3 TIMES A DAY TO CLEAN AREA FOR TESTING 300 each 5 04/09/2024 alfuzosin (UROXATRAL) 10 mg 24 hr tablet TAKE 1 TABLET BY MOUTH EVERY DAY 90 tablet 1 03/15/2024 ammonium lactate (AmLactin) 12 % lotion Apply topically if needed for dry skin. 400 g 03/20/2024 5 ammonium lactate (AmLactin) 12 % lotion Apply topically if needed for dry skin. 400 g 05/22/2024 6 aspirin 81 mg EC tablet Take 1 Tablet by mouth daily. 08/09/2023 atorvastatin (LIPITOR) 20 mg tablet Take 1 Tablet by mouth daily. 90 tablet 2 04/09/2024 blood sugar diagnostic (FreeStyle Lite Strips) test strip TEST 3 TIMES A DAY. DX CODE E 11.51 08/12/2023 buPROPion XL (WELLBUTRIN XL) 300 mg 24 hr tablet Take 1 tablet (300 mg total) by mouth 1 (one) time each day in the morning. Do not crush, chew, or split. 90 each 1 07/31/2024 cephalexin (KEFTAB) 500 mg tablet Take 2 tablets (1000 mg) by mouth once for 1 dose. Then take 1 tablet by mouth every 12 hours for 7 days. 15 tablet 07/11/2024 cholecalciferol (VITAMIN D-3) 50 mcg (2,000 unit) tablet Take 1 tablet (2,000 Units total) by mouth 1 (one) time each day. 01/19/2023 ciclopirox (LOPROX) 0.77 % gel Apply topically 2 (two) times a day. 45 g 05/22/2024 clonazePAM (KlonoPIN) 0.5 mg tablet Take 1 Tablet by mouth at bedtime as needed. 03/15/2022 cyanocobalamin (VITAMIN B-12) 250 mcg tablet Take 1 tablet (250 mcg total) by mouth. DOCOSAHEXAENOIC ACID ORAL Take 1 g by mouth daily. dorzolamide-matti loL (COSOPT) 22.3-6.8 mg/mL ophthalmic solution Administer 1 drop into both eyes 2 (two) times a day. dulaglutide (Trulicity) 3 mg/0.5 mL pen injector injection Inject 3 mg into the skin once a week. 05/03/2023 ferrous sulfate 324 mg (65 mg elemental iron) EC tablet Take 1 tablet (324 mg total) by mouth 1 (one) time each day with breakfast. Do not crush, chew, or split. 90 tablet 1 04/23/2024 flash glucose scanning reader (FREESTYLE EMERSON 2 READER MISC) 1 Device by Does not apply route See Admin Instructions. Check suagrs fasting, before meals and as needed. 01/17/2023 flash glucose sensor (FREESTYLE EMERSON 2 SENSOR MISC) 1 Each by Does not apply route every 14 days. 12/31/2022 folic acid (FOLVITE) 1 mg tablet Take 1 tablet (1 mg total) by mouth 1 (one) time each day. 10/25/2023 FREESTYLE LANCETS MISC TEST BLOOD SUGARS 3 TIMES A DAY BEFORE MEALS 03/17/2022 gabapentin (NEURONTIN) 600 mg tablet Take 1 tablet (600 mg total) by mouth 3 (three) times a day. ibuprofen (ADVIL,MOTRIN) 600 mg tablet TAKE 1-3 TABLETS BY MOUTH DAILY NEEDED FOR PAIN WITH FOOD 90 DAYS ORALLY 02/14/2024 insulin aspart (NovoLOG Flexpen U-100 Insulin) 100 unit/mL (3 mL) injection pen Use 15-20 units three times a day 180 mL 1 07/16/2024 insulin aspart (NovoLOG Flexpen U-100 Insulin) 100 unit/mL (3 mL) injection pen Use 15-20 units three times a day. 180 mL 1 07/31/2024 insulin glargine (Lantus Solostar U-100 Insulin) 100 unit/mL (3 mL) injection pen INJECT 62 units at bedtime, increase by 2 units every 3 days with a max of 70 units. 01/09/2024 isosorbide dinitrate (ISORDIL) 30 mg tablet Take 1 tablet (30 mg total) by mouth. losartan (COZAAR) 25 mg tabletIndication s:Atheroscleroti c heart disease of ute coronary artery without angina pectoris TAKE 1 TABLET BY MOUTH EVERY DAY 90 tablet 1 07/25/2024 magnesium hydroxide (MILK OF MAGNESIA) 400 mg/5 mL suspension Take 15 mL by mouth. 01/06/2022 meclizine (ANTIVERT) 25 mg tablet Take 1 tablet (25 mg total) by mouth 3 (three) times a day if needed for dizziness. 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 200 each 2 03/29/2024 prazosin (MINIPRESS) 5 mg capsule Take 1 capsule (5 mg total) by mouth. 12/02/2023 timoloL (BetimoL) 0.5 % ophthalmic solution 1 Drop 2 times daily. timolol (TIMOPTIC) 0.5 % ophthalmic solution 12/17/2023 tiZANidine (ZANAFLEX) 4 mg tablet Take 1 tablet (4 mg total) by mouth 4 (four) times a day if needed for muscle spasms. 40 tablet 04/12/2024 traZODone (DESYREL) 100 mg tablet Take 2 tablets (200 mg total) by mouth at bedtime as needed for sleep. 60 tablet 07/31/2024 venlafaxine XR (EFFEXOR-XR) 150 mg 24 hr capsule TAKE 1 CAPSULE BY MOUTH EVERY DAY WITH FOOD FOR 30 DAYS documented as of this encounter Discharge Disposition Disposition Code Departure Means Destination Home or Self Care documented in this encounter Progress Notes * Hoda Zabala RN - 08/01/2024 2:30 PM EDT Patient arrives ambulatory for his b12 injection. Patient states he feels like it is helping but not enough He stats his energy is better but he wants more energy Patient has no other complaints. Injection given in right upper arm per his request. Patient given next appointment , instructed tocall with any questions or concerns. Patient left stable and ambulatory. documented in this encounter Plan of Treatment Upcoming Encounters Date Type Department Care Team (Late st Contact Info) Description 08/09/2024 9:40 AM EDT Office Visit Endocrinology [facility] [address] [place] [address] Mackenzie Simon PA [address] [place] [address] 08/20/2024 9:15 AM EDT Office Visit Orthopedic Surgery - [place] [address] [phone] Rayo Kenny DPM [address] [address] 08/29/2024 11:30 AM EDT Appointment [facility] [address] [facility] 2nd [place] [phone] 09/20/2024 9:45 AM EDT Office Visit [address] [phone] Fracisco Santos PA [address] [place] [address] 10/22/2024 10:00 AM EDT Office Visit [facility] Hematology Oncology [address] [place] [address] Francine Morris PA [address] [place] [address] 01/08/2025 9:45 AM EDT Office Visit [address] [phone] Fracisco Santos PA [address] [place] [address] documented as of this encounter Visit Diagnoses Diagnosis B12 deficiency- Primary documented in this encounter Administered Medications Inactive Administered Medications - up to 3 most recent administrations Medication Order MAR Action Action Date Dose Rate Site cyanocobalamin (VITAMIN B-12) injection 1,000 mcg 1,000 mcg, subcutaneous, Once, On Tue08/01/24 at 1445, For 1 dose, Administer as deep subcutaneous injection. Avoid injection into the dermis or upper subcutaneous tissue.Indications:B12 deficiency Given 08/01/2024 2:26 PM EDT 1,000 mcg Right Upper Arm (Back) documented in this encounter Orders Medications Ordered That Zaid ht Not Have Been Administered Count Last Ordered Date First Ordered Date cyanocobalamin (VITAMIN B-12 ) injection 1,000 mcg 1 08/01/2024 documented in this encounter Additional Health Concerns Assessment Noted Time PHQ-9 Depression Total Score: 9 07/25/19 11:42 AM EDT documented as of this encounter Care Teams Sizer Machine Relationship Specialty Start Date End Date Christopher Blue MD [address] [place] [address] PCP - General Internal Medicine 02/27/24 documented as of this encounter
--- OUTSIDE RECORDS SUMMARY | 2024-08-06 13:26 | XMS_ITS | Encounter Summary ---
Author Organization [facility] Address [place] [address] [place] [address] Care Team Providers Care Cook Ice Cream Name Role Phone Lamonte Wakefield RD Primary Care Provider [phone] Encounter Details Date Type Department Care Team (Late st Contact Info) Description 08/05/2021 Dental Interim Note [facility] Dental [address] [place] [phone] Moshe Turner DDS [address] [place], [place] [phone] Social History Tobacco Use Types Packs/Day Years [...] on filedocumented in this encounter Care Teams Cook Ice Cream Relationship Specialty Start Date End Date Lamonte Wakefield RD [address] [place] [address] PCP - General Nutrition 12/18/13 documented as of this encounter
--- OUTSIDE RECORDS SUMMARY | 2024-08-06 13:26 | XMS_ITS | Encounter Summary ---
Author Organization [facility] Address [address] [place] [address] Care Team Providers Care Restaurant Operations Manager Name Role Phone Christopher Blue MD Primary Care Provider [phone] Reason for Visit * Reason Onset Date Comments Medication Problem 07/12/2024 Encounter Details Date Type Department Care Team (Late st Contact Info) Description 07/12/2024 Telephone Walk-In Clinic - [facility] [address] [place] [address] Kin Chino PA [address] [place] [address] Medication Problem Social History Tobacco Use Types Packs/Day Years [...] as of this encounter Progress Notes * Emily John MA - 07/12/2024 10:01 AM EDT Explained to pt's son instructions from vipin. [facility] * Tabby Andres NP - 07/12/2024 9:45 AM EDT Patient was only seen yesterday just started antibiotic needs to give it a few days continue antibiotic increase fluids if patient develops temp of of 101 mental status changes should be seen in the ER * Emily John MA - 07/12/2024 9:07 AM EDT Please advise * Missy Mendez - 07/12/2024 8:55 AM EDT Was seen yesterday for a UTI and has gotten worse please call son Randolph [phone] documented in this encounter Plan of Treatment Upcoming Encounters Date Type Department Care Team (Late st Contact Info) Description 08/09/2024 9:40 AM EDT Office Visit Endocrinology [address] [phone] Mackenzie Simon PA [address] [place] [address] 08/20/2024 9:15 AM EDT Office Visit Orthopedic Surgery - [place] [address] [phone] Rayo Kenny, DPGregg [address] [address] 08/29/2024 11:30 AM EDT Appointment [facility] [address] [facility] 2nd [place] [phone] 09/20/2024 9:45 AM EDT Office Visit Adult Medicine [address], [place] [phone] Fracisco Santos PA [address] [place], [place] [phone] 10/22/2024 10:00 AM EDT Office Visit [facility] Hematology Oncology [address] [place] [address] Francine Morris PA [address] [place] [address] 01/08/2025 9:45 AM EDT Office Visit Adult Medicine [address] [phone] Fracisco Santos PA [address] [place] [address] documented as of this encounter Visit Diagnoses Not on filedocumented in this encounter Additional Health Concerns Assessment Noted Time PHQ-9 Depression Total Score: 17 025 11:20 AM EST documented as of this encounter Care Teams Restaurant Operations Manager Relationship Specialty Start Date End Date Christopher Blue MD [address] [place] [address] PCP - General Internal Medicine 02/27/24 documented as of this encounter
--- OUTSIDE RECORDS SUMMARY | 2024-08-06 13:26 | XMS_ITS | Encounter Summary ---
Author Organization [facility] Address [address] [place] [address] [address] [place] [address] Care Team Providers Care Elastic Attacher Chainstitch Name Role Phone Unavailable Primary Care Provider Unavailabl e Encounter Details Date Type Department Care Team (Latest Contact Info) Description 02/15/2019 [facility] Dental, Provider, DDS Social History Tobacco Use Types Packs/Day Years Used Date Smoking Tobacco: Never Assessed Sex and Gender Information Value Date Recorded Sex Assigned at Male 02/22/2022 10:31 AM EDT Legal Sex Male 10:31 AM EDT Gender Identity Male 02/22/2022 10:31 AM EDT Sexual Orientation Choose not to disclose 2021 10:31 AM EDT documented as of this encounter Plan of Treatment Not on file documented as of this encounter Visit Diagnoses Not on filedocumented in this encounter
== END 2024-08-06 11:55 | disposition home or self-care (01) ==
LOC: HO.PMC 11:23
PROVIDERS: PCP Internal Medicine; Visit Provider Internal Medicine
DX: G89.29 Other chronic pain (principal); M75.101 Unspecified rotator cuff tear or rupture of right shoulder, not specified as traumatic; M96.1 Postlaminectomy syndrome, not elsewhere classified; M47.812 Spondylosis without myelopathy or radiculopathy, cervical region
CPT/HCPCS: 99213

== ENCOUNTER → 2024-08-06 11:23 | Outpatient (BNVA) | payer MEDICARE, SELFPAY | PROVIDERS: PCP Internal Medicine; Visit Provider Internal Medicine | DX: M75.101 Unspecified rotator cuff tear or rupture of right shoulder, not specified as traumatic (principal); M96.1 Postlaminectomy syndrome, not elsewhere classified; M47.812 Spondylosis without myelopathy or radiculopathy, cervical region; G89.29 Other chronic pain | CPT/HCPCS: 99212 ==

== ENCOUNTER 2024-09-25 09:30 | Day surgery (SDC) | payer MEDICARE, SELFPAY ==
[2024-09-25 09:58] VITALS: BMI 29.4
[2024-09-25 10:07] VITALS: BP 155/85; PULSE 62; RESP 16; TEMP 36.4; O2SAT 100
--- NOTE | 2024-09-25 10:32 | PC.NURSE ---
in person Icelandic reservoir engineering consultant present at bedside.
--- NOTE | 2024-09-25 11:35 | MHC.SHP ---
Pre-Procedural Eval Section A - 24 Hr Update-Section A only Date of Service: 09/25/24 Section B - Complete if H&P > 30 days Chief Complaint: Anemia, unspecified Relevant Family History (Specify if Yes): No Relevant Social History: None Present Medications: see Short Stay Collaborative assessment Medical History: Significant History (Post laminectomy syndrome Failed back syndrome HTN (hypertension) Arthritis Cervical spondylarthritis Insomnia Right arm pain Obesity Anxiety Nightmare disorder Low back pain Depression Lumbar spinal stenosis Ulnar neuropathy Carpal tunnel syndrome Chronic pain syndrome Glaucoma HLD (hyperlipidemia)) History of Previous Operations: Relevant previous surgery/procedure and date(s) (Previous back surgery) Allergies: Allergies Allergy/AdvReac Type Severity Reaction Status Date / Time No Known Allergies Allergy Verified 08/06/24 11:29 Review of Systems Sugical H&P ROS: Negative: Constitution, Cardiovascular, Respiratory, Neurological, Psychiatric, Hem-Onc, Allergic/Immunologic, Gastrointestinal, Genitourinary, Musculoskeletal, Integumentary, Endocrine and Eyes/Ears/Nose/Throat Exam Surgical H&P Exam: Normal: HEENT, Normal: Heart, Normal: Lungs, Normal: Extremities, Normal: Abdomen, Normal: Skin and Normal: Neurological Plan Diagnosis/Plan: Unchanged I have reviewed the history and physical and performed a pertinent physical examination on my patient. No changes have occurred unless specified.EGD for anemia also hx of h pylori -not eradicated Time Spent With Patient Time: Total time managing care of this patient today ____ minutes.
--- NOTE | 2024-09-25 11:42 | HO.ANESPROP2 ---
[facility] Active Problems Active Problems: All Active Problems Painful arc syndrome of right shoulder (Acute) Overweight (BMI 25.0-29.9) (Acute) Low vitamin D level (Acute) H. pylori infection (Acute) PTSD (post-traumatic stress disorder) (Acute) Chronic intractable pain (Acute) Lumbar spondylosis (Acute) Post laminectomy syndrome (Acute) Failed back syndrome (Acute) HTN (hypertension) (Acute) Arthritis (Acute) Cervical spondylarthritis (Acute) Insomnia (Acute) Right arm pain (Acute) Obesity (Acute) Anxiety (Acute) Nightmare disorder (Acute) Low back pain (Acute) Depression (Acute) Lumbar spinal stenosis (Acute) Ulnar neuropathy (Acute) Carpal tunnel syndrome (Acute) Chronic pain syndrome (Acute) Glaucoma (Acute) HLD (hyperlipidemia) (Acute) Diabetes mellitus (Acute) Past Medical History Medical History Post laminectomy syndrome Failed back syndrome HTN (hypertension) Arthritis Cervical spondylarthritis Insomnia Right arm pain Obesity Anxiety Nightmare disorder Low back pain Depression Lumbar spinal stenosis Ulnar neuropathy Carpal tunnel syndrome Chronic pain syndrome Glaucoma HLD (hyperlipidemia) Diabetes mellitus Functional capacity: independent ambulation Family History Family History Mother Diabetes Father Diabetes Daughter No problems noted. Daughter No problems noted. Son No problems noted. Daughter No problems noted. Son No problems noted. Family history of problems with anesthesia: No Surgical History Surgical History Previous back surgery History of Problems with Anesthesia: No Social History Social History Household Members: Spouse and Children Housing: House Alcohol intake: never Patient Tobacco Use Status: Never used Tobacco Second Hand Smoke Exposure: No Use of substances other than those prescribed or required for medical reasons: No Have you been hit, kicked, punched, or otherwise hurt by someone within the past year? If so, by whom?: No Are you DNR?: No Advance Directives: No Advance Directives Information Provided: Yes Advance Directives on File: No Poor oral hygiene: No Current occupational status: retired Meds Allergies Allergy/AdvReac Type Severity Reaction Status Date / Time No Known Allergies Allergy Verified 08/06/24 11:29 Active Medications: Current Medications Lactated Ringer's (Lr) 1,000 mls @ 80 mls/hr IVCONT .[id number] Home Medications ?Medication ?Instructions ?Recorded ?Confirmed ?Last Taken ?Type clonazepam 0.5 mg tablet 0.25 mg PO BEDTIME 03/02/21 09/25/24 Unknown History dorzolamide 2 % eye drops 1 drp ophthalmic (eye) TID 03/02/21 09/25/24 Unknown History ibuprofen 600 mg tablet 600 mg PO Q8H PRN Pain 03/02/21 09/25/24 Unknown History insulin lispro 100 unit/mL 1 sliding scale dose subcut 03/02/21 09/25/24 Unknown History subcutaneous pen (Humalog KwikPen USEASDIRECTD (U-100) Insulin) simvastatin 20 mg tablet 20 mg PO QPM 03/02/21 09/25/24 Unknown History trazodone 100 mg tablet 100 mg PO BEDTIME PRN Sleep 03/02/21 09/25/24 Unknown History venlafaxine 150 mg 150 mg PO DAILY 03/02/21 09/25/24 Unknown History capsule,extended release 24 hr alfuzosin 10 mg tablet,extended 10 mg PO DAILY 08/30/22 09/25/24 Unknown History release 24 hr dulaglutide 3 mg/0.5 mL 3 mg subcut QWEEK 08/30/22 09/25/24 09/17/24 History subcutaneous pen injector (Trulicity) prazosin 2 mg capsule 5 mg PO BEDTIME 08/30/22 09/25/24 Unknown History losartan 25 mg tablet 25 mg PO DAILY 01/26/23 09/25/24 Unknown History metformin 1,000 mg tablet 500 mg PO BIDWMEAL 03/25/23 09/25/24 Unknown History Exam Height,Weight and Vital Signs: Height 5 ft 9 in Weight 90.4 kg Last Vital Signs Temp 97.5 F 09/25/24 10:07 Pulse 62 09/25/24 10:07 Resp 16 09/25/24 10:07 BP 155/85 H 09/25/24 10:07 Pulse Ox 100 09/25/24 10:07 O2 Del Method Room Air 09/25/24 10:07 Airway Mallampati Class: II TM Dist: >3cm Neck ROM: Full Loose/Missing/Broken Teeth: No Heart: rrr Lungs: cta Assessment and Plan Final Anesthetic Review Family History of Problems with Anesthesia: No History of Problems with Anesthesia: No NPO: Yes ASA Class: II Final Preanesthetic Review: No Changes in Pt Med Stat, Meds/Allgs Chart Reviewed, Consent Obtained/Reviewed and Anes Risks/Benef Reviewed Patient Risk: Low Procedure Risk: Low Anesthetic Plan Anesthetic Plan: MAC: Disposition: Standard PACU
--- NOTE | 2024-09-25 12:09 | W.PM.OPN ---
Operative Note Operative Note Date of Service: 09/25/24 Narrative: Procedure Description: EGD Indication: anemia Anesthesia: MAC FLEXIBLE TRANSORAL UPPER GASTROINTESTINAL ENDOSCOPY UPPER ENDOSCOPY Consent: Indications for the procedure and potential complications of bleeding, perforation, reaction to medications and missed diagnosis were discussed with the patient and informed consent was obtained. Instrument: Olympus GIF H 190 J mid size upper endoscope Monitoring: Vital signs and clinical assessment, continuous EKG monitoring, Pulse oximetry, Carbon Dioxide monitoring and blood pressure monitoring were done throughout the procedure. Procedure: The patient was placed in the left lateral decubitis position and pre-procedure medications were administered and a bite block was placed. The endoscope was inserted into the mouth and advanced under direct vision to the third part of duodenum. A careful inspection was made as the upper endoscope was withdrawn including a retroflexed examination of the proximal stomach; Findings and interventions are described below. Findings: Larynx:normal Esophagus: GE junction at 42 cm, diaphragm hiatus at 42 cm, normal mucosa Stomach: x3 discrete mass like infiltrating lesions with rolled up edges noted. one was in anterior wall of the stomach and covered most of the body wall, another was near the cardi and emasured about 2 cm x 1 cm, and th thirs was in ezra body on the greater curve and was about 2 cm x 1 cm in diameter. Cold snare also used to take bigger sample sizes. bx also taken from the pre pyloric area. Grade 2 flap valve on retroflexed examination of the cardia. Duodenum: Normal bulb and descending duodenum, bx taken Intervention: Biopsies as noted above, cold snare Impression/Findings: gastritis gastric masses/lesions PLAN: Await pathology Ct A/P with IV and PO contrast if agrees GERD precautions
[2024-09-25 12:14] VITALS: BP 100/57; PULSE 69; RESP 18; TEMP 36.3; O2SAT 94
[2024-09-25 12:29] VITALS: BP 103/61; PULSE 58; RESP 16; O2SAT 96
[2024-09-25 12:44] VITALS: BP 108/67; PULSE 56; RESP 16; O2SAT 96
[2024-09-25 12:59] VITALS: BP 132/82; PULSE 66; RESP 16; O2SAT 98
[2024-09-25 13:14] VITALS: BP 142/87; PULSE 65; RESP 20; TEMP 36.3; O2SAT 99
== END 2024-09-25 13:46 | disposition home or self-care (01) ==
PROVIDERS: PCP Internal Medicine; Visit Provider Internal Medicine Gastroenterology
PROC: 0DJ08ZZ Inspection of Upper Intestinal Tract, Via Natural or Artificial Opening Endoscopic (ICD-10-PCS; CPT 43235; principal; 2024-09-25 11:50)
DX: D64.9 Anemia, unspecified (principal); K29.50 Unspecified chronic gastritis without bleeding; B96.81 Helicobacter pylori [H. pylori] as the cause of diseases classified elsewhere; K31.A15 Gastric intestinal metaplasia without dysplasia, involving multiple sites; K44.9 Diaphragmatic hernia without obstruction or gangrene; I10 Essential (primary) hypertension; E78.5 Hyperlipidemia, unspecified; E11.9 Type 2 diabetes mellitus without complications; M48.061 Spinal stenosis, lumbar region without neurogenic claudication; G89.4 Chronic pain syndrome; M47.812 Spondylosis without myelopathy or radiculopathy, cervical region; M54.50 Low back pain, unspecified; M96.1 Postlaminectomy syndrome, not elsewhere classified; F32.A Depression, unspecified; F41.9 Anxiety disorder, unspecified; F51.5 Nightmare disorder; G47.9 Sleep disorder, unspecified; G47.00 Insomnia, unspecified; Z79.1 Long term (current) use of non-steroidal anti-inflammatories (NSAID); Z79.4 Long term (current) use of insulin; Z79.85 Long-term (current) use of injectable non-insulin antidiabetic drugs; Z79.899 Other long term (current) drug therapy; Z98.890 Other specified postprocedural states
CPT/HCPCS: 43251; 43239; 87081; 87205; 88305; 88342; J2003; J2704; J3010

== ENCOUNTER → 2024-09-25 09:30 | Outpatient (BNV) | payer MEDICARE, SELFPAY | PROVIDERS: PCP Internal Medicine; Visit Provider Internal Medicine Gastroenterology | DX: D64.9 Anemia, unspecified (principal); R19.00 Intra-abdominal and pelvic swelling, mass and lump, unspecified site; K29.70 Gastritis, unspecified, without bleeding | CPT/HCPCS: 43251 ==

== ENCOUNTER 2024-10-05 09:44 | Outpatient (REF) | payer MEDICARE, SELFPAY ==
--- NOTE | ~2024-10-05 | CT_ITS ---
EXAMINATION: CT ABDOMEN PELVIS WITH IV CONTRAST HISTORY: D64.9 - Anemia, unspecified COMPARISON: There are no prior studies for available comparison. TECHNIQUE: CT scan of the abdomen and pelvis was performed following administration of 85 mL Omnipaque 350 using standard departmental protocol. Coronal and sagittal reformatted images were generated and reviewed. The patient received oral contrast material. This CT exam was performed with one or more of the following dose reduction techniques: automated exposure control, adjustment of the mA and/or kV according to patient size, use of iterative reconstruction technique. DLP: 603 mGy-cm FINDINGS: There is streak artifact from the patient's spinal fixation hardware. LOWER CHEST: The visualized lung bases are clear. There is no pleural effusion. CARDIOVASCULATURE: The heart is normal in size. There is no pericardial effusion. LIVER: The liver is normal in size and contour. There is a tiny 2 mm hypodensity in the right lobe of the liver (series 3, image 23) which is too small to accurately characterize. The hepatic and portal veins are patent. GALLBLADDER / BILE DUCTS: The gallbladder is unremarkable. There is no intra or extrahepatic biliary ductal dilatation. SPLEEN: The spleen is normal in size. No focal splenic lesion is identified. PANCREAS: The pancreas is unremarkable in appearance. ADRENAL GLANDS: Within normal limits. KIDNEYS/RETROPERITONEUM: No renal calculi are identified. There is no hydronephrosis. No renal masses are identified. LYMPH NODES: No abdominal or pelvic lymphadenopathy. VASCULATURE: The abdominal aorta is normal in caliber. MESENTERY/PERITONEUM: No free fluid. No masses. There is no free intraperitoneal gas. STOMACH: The stomach is collapsed, limiting evaluation. SMALL BOWEL: The small bowel is normal in caliber. There is fecalization of mid small bowel loops, suggesting stasis. COLON: The colon is unremarkable. APPENDIX: Normal. URINARY BLADDER/PELVIC ORGANS: The urinary bladder is unremarkable. The prostate is enlarged. BONES / SOFT TISSUES: The patient is status post fusion of the spine from T11 through S1. There is a severe compression deformity of T11 as seen on prior CT of the lumbar spine dated 09/12/2023. CT/CT abdomen pelvis w IV con IMPRESSION: Fecalization of small bowel loops, suggesting stasis. Electronically signed by: Vinh House MD 10/05/2024 10:26 AM EDT RP
[2024-10-05] MEDS: iohexoL 350 MG/ML 100 ML INFUS..BTL 85 ML IV (10:12)
--- OUTSIDE RECORDS SUMMARY | 2024-10-05 10:13 | XMS_ITS | Clinical Summary ---
Author Organization [facility] Address [address] [place] [address] Care Team Providers Care Facilities Director Name Role Phone Christopher Blue MD Primary Care Provider [phone] Allergies No known active allergies Medications Medication [...] Shingrix-Zoster Vaccine (2 of 2) 09/05/2019 07/11/2019 DTap / Tdap / Td (2 - Td or Tdap) 04/30/2024 04/30/2014 Influenza Vaccine (Season Ended) 2024 06/16/2023 RSV Adult > 60+ Yrs or (1 - 1-dose 75+ series) 2029 Pneumococcal Vaccine Completed 06/16/2023, 04/09/2021, 03/30/2020, Additional history exists Hepatitis B Vaccines Aged Out No long er eligible based on patient's age to complete this topic RSV Ped < 20 months Aged Out No longe r eligible based on patient's age to complete this topic Care Teams Facilities Director Relationship Specialty Start Date End Date Christopher Blue MD PCP - General Internal Medicine 03/16/17
[2024-10-05 13:47] LABS: Creatinine POC 0.6 mg/dL (0.5-1.4); GFR POC > 60
== END 2024-10-05 09:45 | disposition home or self-care (01) ==
LOC: HO.CT 09:44
PROVIDERS: PCP Internal Medicine; Visit Provider Internal Medicine Gastroenterology
DX: D64.9 Anemia, unspecified (principal)
CPT/HCPCS: 74177; 82565; Q9967

== ENCOUNTER → 2024-10-05 09:46 | Outpatient (BNV) | payer MEDICARE, SELFPAY | PROVIDERS: PCP Internal Medicine; Visit Provider Radiology Diagnostic Radiology | DX: K56.41 Fecal impaction (principal) | CPT/HCPCS: 74177 ==

== ENCOUNTER 2024-11-05 15:12 | Outpatient (AMB) | payer MEDICARE, MEDICAID, SELFPAY ==
--- NOTE | 2024-11-05 15:16 | MHC.OFFVIS ---
Vital Signs 11/05/24 15:22 Height 5 ft 8 in Weight 208 lb BMI 31.6 BP 119/64 Blood Pressure Location Lt brachial Position Sitting Pulse 84 Intake Visit Reasons: S/P EGD; Dr. Eric Intake Note: Patient follow up for EGD results. Patient denies any GI issues. [employer] Required: No Accompanied by: Daughter Allergies No Known Allergies Allergy (Verified 08/06/24 11:29) HPI HPI S/P EGD; Dr. Eric: Details: UPPER ENDOSCOPY Findings: Larynx:normal Esophagus: GE junction at 42 cm, diaphragm hiatus at 42 cm, normal mucosa Stomach: x3 discrete mass like infiltrating lesions with rolled up edges noted. one was in anterior wall of the stomach and covered most of the body wall, another was near the cardi and emasured about 2 cm x 1 cm, and th thirs was in ezra body on the greater curve and was about 2 cm x 1 cm in diameter. Cold snare also used to take bigger sample sizes. bx also taken from the pre pyloric area. Grade 2 flap valve on retroflexed examination of the cardia. Duodenum: Normal bulb and descending duodenum, bx taken Intervention: Biopsies as noted above, cold snare Impression/Findings: gastritis gastric masses/lesions PATHOLOGY RESULTS Addendum Addendum #1 Immunostains for H. pylori on B, C, D and E are positive with appropriate control. Electronically Signed By: Merna Kowalski 10/01/24 [id number] Diagnosis A. Duodenum, biopsy: -Duodenal mucosa with preserved villi and no specific change. B. Stomach, pre-pyloric, biopsy: -Gastric antral mucosa with reactive changes and chronic gastritis with mild activity; negative for intestinal metaplasia and dysplasia. C. Stomach, anterior, gastric mass #1, biopsy: -Gastric body mucosa with reactive changes, features suggesting proton pump inhibitor effect, and chronic gastritis with mild activity; negative for intestinal metaplasia and dysplasia. -Gastric antral mucosa with reactive changes, focal intestinal metaplasia (complete) and chronic gastritis with mild activity; negative for dysplasia. D. Stomach, greater curvature, mass #2, biopsy: -Gastric body mucosa with mild chronic gastritis, focal hyperplastic changes, and focal intestinal metaplasia (complete); negative for dysplasia. E. Gastric cardia, mass #3, biopsy: -Gastric cardia mucosa with mild chronic gastritis, focal gland atrophy, and focal intestinal metaplasia (complete); negative for dysplasia. Comment: (C, D and E): No mucosal neoplasia is identified. Submucosal tissue is not present for evaluation and a submucosal lesion cannot be excluded. Clinical and imaging correlation necessary. H pylori immunostains pending; addendum to follow TODAY'S VISIT Patient is here today for follow-up visit after his endoscopy. Patient was not seen prior to the procedure in the office. Was sent for the procedure by his PCP. Patient had endoscopy that showed positive H pylori, mild chronic gastritis with focal intestinal metaplasia negative for dysplasia. Patient reports acid reflux. Was placed on PPI in the past by bariatric surgeons. Patient reports that he generally is feeling well. Denies any dyspepsia, dysphagia or odynophagia. Denies melena, hematochezia, unintentional weight loss or ribbon like stools. [facility] Medical History (Updated 09/25/24 @ 13:09 by Art Eric MD) Post laminectomy syndrome Failed back syndrome HTN (hypertension) Arthritis Cervical spondylarthritis Insomnia Right arm pain Obesity Anxiety Nightmare disorder Low back pain Depression Lumbar spinal stenosis Ulnar neuropathy Carpal tunnel syndrome Chronic pain syndrome Glaucoma HLD (hyperlipidemia) Diabetes mellitus Surgical History History of esophagogastroduodenoscopy (EGD) Previous back surgery Family History Mother Diabetes Father Diabetes Daughter No problems noted. Daughter No problems noted. Son No problems noted. Daughter No problems noted. Son No problems noted. Social History Household Members: Spouse and Children Housing: House Alcohol intake: never Patient Tobacco Use Status: Never used Tobacco Second Hand Smoke Exposure: No Current occupational status: retired Review of Systems Const Denies weight gain and Denies weight loss ENT Reports no additional complaints, Denies dysphagia and Denies odynophagia Card Reports no additional complaints Resp Reports no additional complaints GI Denies abdominal pain, Denies belching, Denies melena, Denies bloating, Denies change in bowel habits, Denies dysphagia, Denies excessive flatus, Denies dyspepsia, Denies heartburn, Denies diarrhea, Denies loose stools, Denies nausea, Denies odynophagia and Denies vomiting Reports no additional complaints Musc Reports no additional complaints Neuro Reports no additional complaints Psych Reports no additional complaints Endo Reports no additional complaints Physical Exam Vital Signs: Last Vital Signs Pulse 84 11/05/24 15:22 BP 119/64 11/05/24 15:22 BMI result Body Mass Index 31.6 Const General: healthy appearing, no acute distress and well developed Nutritional Appearance: well nourished and obese Orientation/consciousness: patient oriented x3 Resp Effort & Inspection: normal respiratory effort, able to speak in complete sentences, no tracheal deviation and symmetric chest movement Auscultation: clear to auscultation bilaterally Cardio Rate: regular rate GI Inspection: Yes normal to inspection, No distended and Yes obesity Palpation (GI): Soft to palpation, not firm, nontender and No hepatosplenomegaly present Auscultation: normal bowel sounds General: Yes no CVA tenderness Back/Spine/Pelvis Back: no CVA tenderness Skin General skin exam: elasticity normal, turgor normal and dry skin Neuro General: patient oriented x3 Psych Appearance: grossly normal Mental Status: mental status grossly normal Assessment & Plan Assessment & Plan (1) H. pylori infection: Code(s): A04.8 - Other specified bacterial intestinal infections Category: Medical Plan Will treat empirically. Patient will return in the office in 2 months so we can retest him. Patient should be sent for upper endoscopy in the near future to check. Mild inactive gastritis with focal metaplasia without dysplasia. Patient was encouraged to avoid dietary triggers and late night snacking. Staying upright for minimum 3 hours after meals discussed with patient. Both patient and his daughter are agreeable to plan of care and verbalizes understanding of instructions. They were given the opportunity to ask questions and all questions answered. Thank you for allowing me to participate in his care Medications: New ilwtepbdoc-ytnzrfndj-wspsmgify 10-250-12.5 mg (Talicia) must administer with a meal/food 4 caps (4 x 10-250-12.5 mg) PO Q8H 168 ea 0RF 14 days rucfxtygrt-ribfunlpv-fyfzadnrm 10-250-12.5 mg (Talicia) must administer with a meal/food 4 caps (4 x 10-250-12.5 mg) PO Q8H 168 ea 0RF 14 days Coding Level of Care Code New Pt Level 3 (13901) Diagnoses H. pylori infection A04.8 Time Spent (min) 40 Comment 30 minutes spent with patient and additional 10 minutes spent reviewing his records
[2024-11-05 15:22] VITALS: BP 119/64; PULSE 84; BMI 31.6
--- OUTSIDE RECORDS SUMMARY | 2024-11-05 16:29 | XMS_ITS | Clinical Summary ---
Author Organization [facility] Address [address] [place] [address] [address] [place] [address] Care Team Providers Care Supervisor Quilting Name Role Phone Unavailable Primary Care Provider [...] 2023-2 5 season) 2023 Influenza Vaccine (#1) 2024 RSV Patients and Pa tients Aged 60 [...]
--- OUTSIDE RECORDS SUMMARY | 2024-11-05 16:29 | XMS_ITS | Clinical Summary ---
Author Organization [facility] Address [address] [place] [address] Phone Care Team Providers Care Bias Binding Folder Name Role Phone Christopher Blue MD Primary Care Provider [phone] Allergies Active Allergy Reactions Criticality Noted Date Comments Gelatin 10/17/2023 Medications prazosin (MINIPRESS) 5 mg capsule Take 1 [...] DX CODE E 11.51 08/12/19 24 Active cholecalcifero l (VITAMIN D-3) 50 mcg (2,000 unit) tablet Take 1 tablet (2,000 Units total) by mouth 1 (one) time each day. 01/20/20 23 Active flash glucose scanning reader (FREESTYLE EMERSON 2 READER MISC) 1 Device by Does not apply route See Admin Instructions. Check suagrs fasting, before meals and as needed. 01/18/20 23 Active flash glucose sensor (FREESTYLE EMESRON 2 SENSOR MISC) 1 Each by Does not apply route every 14 days. 01/01/20 Active FREESTYLE LANCETS [facility] TEST BLOOD SUGARS 3 TIMES A DAY [...] Take 15 mL by mouth. 01/07/20 Active venlafaxine XR (EFFEXOR-XR) 150 mg 24 hr capsule TAKE 1 CAPSULE BY MOUTH EVERY DAY WITH FOOD FOR 30 DAYS Active pen needle, diabetic (BD Ultra-Fine Micro [...] split. 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 Then take 1 tablet by mouth every 12 hours for 7 days. 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 Do not crush, chew, or split. 90 each 1 08/01/19 25 Active NovoLOG Flexpen U-100 Insulin 100 unit/mL (3 mL) injection pen Use 12-20 units three times a day. 60 mL 1 08/10/19 25 Active insulin glargine (Lantus Solostar U-100 Insulin) 100 unit/mL (3 mL) injection pen INJECT 62 units at bedtime 60 mL 2 08/10/19 25 Active albuterol HFA (PROAIR HFA ; PROVENTIL HFA ; VENTOLIN HFA) 90 mcg/actuation inhaler Inhale 2 puffs by mouth every 6 (six) hours if needed for wheezing. 8.5 g 1 08/10/19 25 Active ammonium lactate (AmLactin) 12 % lotion Apply topically if needed for dry skin. 400 g 08/21/19 25 026 Active ciclopirox (LOPROX) 0.77 % gel Apply topically 2 (two) times a day. 45 g 08/21/19 25 025 Active traZODone (DESYREL) 150 mg tablet Take 1 tablet (150 mg total) by mouth at bedtime as needed for sleep. 90 tablet 1 09/21/19 25 Active pen needle, diabetic (BD Luiza 2nd Gen Pen Needle) 32 gauge x 32 needleIndicati ons:Type 2 diabetes mellitus without complication, with long-term current use of insulin ([facility] V24, [facility] V28) Used to inject insulin 4 times a day. 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 08/09/19 24 025 Discontinued dulaglutide (Trulicity) 3 mg/0.5 mL pen injector injection Inject 3 mg into the skin once a week. 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 As such, he likely has a low [...] and the less than 0.1% risk for [place], stroke or . The patient understands and [...] (03/15/2024): Added automatically from request for surgery [id number] Lumbar degenerative disc disease 06/29/2021 Overview (03/15/2024): Added automatically from request for surgery [id number] Spinal stenosis of lumbar region 06/29/2021 Overview (03/15/2024): Added automatically from request for surgery [id number] Diabetes mellitus ([facility] V24, [facility] V28) Glaucoma 05/25/2021 Anxiety and [...] diabetes mellitus wi th peripheral circulatory disorder ([facility] V24, [facility] V28) 03/26/2015 HLD (hyperlipidemia) 09/18/2013 [...] Encounters Date Type Department Care Team Description 10/30/2024 10:52 AM EDT - 10/30/2024 11:59 PM EDT Hospital Encounter [facility] [address] [place] [phone] Jennifer Wills MD B12 deficiency (Primary Dx) Discharge Disposition: Home or Self Care 10/30/2024 9:00 AM EDT Office Visit Orthopedic Surgery - [place] [address] [facility] [address] [place] [phone] Ryao Kenny DPM Dermatophytosis of nail (Primary Dx); Metatarsalgia of both feet; Type II diabetes mellitus with peripheral circulatory disorder (CMS/HCC V24, CMS/HCC V28); Diabetic mononeuropathy simplex (CMS/HCC V24, CMS/HCC V28); Pain in toe of right foot; Pain in toe of left foot; Corns and callosities [L84]; Xerosis of skin 10/22/2024 10:00 AM EDT Office Visit [facility] Hematology Oncology [address] [place] [phone] Francine Morris PA Iron deficiency anemia, unspecified iron deficiency anemia type (Primary Dx); Helicobacter pylori gastritis; B12 deficiency 09/26/2024 11:06 AM EDT - 09/26/2024 11:59 PM EDT Hospital Encounter [facility] [address] [place] [address] [phone] Jennifer Wills MD B12 deficiency (Primary Dx) Discharge Disposition: Home or Self Care 09/24/2024 8:10 AM EDT Office Visit [facility] [address] [place] [phone] Raiza Ellis NP Primary hypertension (Primary Dx); Mixed hyperlipidemia; Coronary artery disease involving [place] coronary artery of [place] heart without angina pectoris 09/21/[address] [phone] Christopher Blue MD Request For Order(s) ([facility]) 09/20/2024 9:45 AM EDT Office Visit [address] [phone] Fracisco Santos PA Depression, unspecified depression type (Primary Dx); Insomnia, unspecified type 09/13/[address] [phone] Mackenzie Simon PA Advice Only 08/29/2024 11:14 AM EDT - 08/29/2024 11:59 PM EDT Hospital Encounter [facility] [address] [facility] [address] [place] [phone] Jennifer Wills MD B12 deficiency (Primary Dx) Discharge Disposition: Home or Self Care 08/20/2024 9:15 AM EDT Office Visit Orthopedic Surgery [facility] [address] [place] [address] [phone] Rayo Kenny DPM Xerosis of skin (Primary Dx); Dermatophytosis of nail; Diabetic mononeuropathy simplex (CMS/HCC V24, CMS/HCC V28); Pain in toe of left foot; Corns and callosities [L84]; Metatarsalgia of both feet; Type II diabetes mellitus with peripheral circulatory disorder (CMS/HCC V24, CMS/HCC V28); Pain in toe of right foot 08/09/2024 9:40 AM EDT Office Visit [address] [phone] Mackenzie Simon PA Type II diabetes mellitus with peripheral circulatory disorder (CMS/HCC V24, CMS/HCC V28) (Primary Dx); Primary hypertension; Hyperlipidemia, unspecified hyperlipidemia type from Last 3 Months Immunizations Name Administration [...] 5 years COLONOSCOPY W/ POLYPECTOMY 08/01/2017 PROCEDURE: FL COLSC FLX W/RMVL OF TUMOR POLYP LESION SNARE TQ; COMMENT: reactive lymphoid aggregates and hemorrhoids; repeat in 5 yrs OTHER SURGICAL HISTORY PROCEDURE: LUMBAR SPINE FUSION, LAT TRANSVERSE CARDIAC CATHETERIZATION DONE AT [facility] ON 09/10/24 w/CHELSEA. 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, mild stage 07/06/2017 DX:Chronic angle-closure gla ucoma of both eyes, mild stage Lumbar spinal stenosis 02/27/2020 DX:Lumbar spinal stenosis B12 deficiency 02/27/2024 Diabetes mellitus (CMS/[facility] V 24, CMS/[facility] V28) Family History Medical History Relation Name Comments [...] Orientation Straight 09/26/2024 11 :05 AM EDT Obstetrics History Last Filed Vital Signs Vital Sign Reading Time Taken Comments Blood Pressure 119/76 10/30/2024 10:56 AM EDT Pulse 69 10/30/2024 10:56 AM EDT Temperature 36.7 C (98.1 F) 10/30/2024 10:56 AM EDT Respiratory Rate 12 10/30/2024 10:56 AM EDT Oxygen Saturation 100% 10/30/2024 10:56 AM EDT Inhaled Oxygen Concentration - - Weight 93.4 kg (206 lb) 10/22/2024 10:15 AM EDT Height 177.8 cm (5' 10 ) 09/24/2024 8:24 AM EDT Body Mass Index 29.56 09/24/2024 8:24 AM EDT Plan of Treatment Upcoming Encounters Date Type Department Care Team (Late st Contact Info) Description 01/10/2025 2:45 PM EDT Office Visit Adult Medicine [address] [phone] Fracisco Santos PA [address] [place] [phone] 01/21/2025 9:15 AM EDT Office Visit Orthopedic Surgery - [place] [address] [phone] Rayo Kenny, DPM [address] [phone] 01/21/2025 11:00 AM EDT Appointment [facility] [address] [place] [phone] 02/19/2025 11:20 AM EDT Office Visit Endocrinology - [place] [address] [place] [phone] Mackenzie Simon PA [address] [place], [place] 04/23/2025 9:30 AM EST Office Visit [facility] Hematology Oncology [address] [place] [phone] Francine Morris PA [address] [place] [address] 05/27/2025 9:00 AM EST Office Visit [place] [address] [phone] Christopher Blue MD [address] [place] [address] [phone] Health Maintenance Due Date Last Done Comments Diabetes: Annual Foot Exam 02/04/1965 Zoster Vaccines (3 of 3) 09/05/2019 020, 02/06/2015, 01/28/2015 Social Influencers of Health Screening 04/03/2022 COVID-19 Vaccine ( - 2023- season) 2023 03/20/2022, 11/24/2021, 03/03/2021, Additional history exists DTaP,Tdap,and Td Vaccines (2 - Td or Tdap) 04/30/2024 04/30/2014 Influenza Vaccine (#1) 2024 , 06/16/2023, 12/20/2016, Additional history exists Diabetes: Blood Sugar Control Test (HGBA1C) 01/31/2025 08/01/2024, 04/04/2024, 01/03/2024, Additional history exists Medicare Annual Wellness Visit 06/18/2025 06/18/2024 Depression Screening 07/24/2025 07/24/2024, 07/18/19 Diabetes: Annual Urine Albumin-Creatinine Ratio (uACR) 08/01/2025 08/01/2024, 06/19/2024, 06/16/2023 Diabetes: Annual GFR (Glomerular Filtration Rate) 08/01/2025 08/01/2024, 06/19/2024, 01/03/2024, Additional history exists Hypertension/CHF/CAD Annual BMP Blood Test 08/01/2025 08/01/2024, 06/19/2024, 01/03/2024, Additional history exists Falls Risk Assessment 08/29/2025 08/29/2024 Diabetes: Annual Retina Eye Exam 09/18/2025 09/18/2024, 03/08/2024 Colorectal Cancer Screening: Colonoscopy 01/13/2028 01/12/2023 Cholesterol Screening (Lipid Panel) 06/19/2029 06/19/2024, 01/03/2024, 01/03/2024, Additional history exists Hepatitis C Screening Completed 01/22/2013 Pneumococcal Vaccine: 50+ Years Completed 06/16/2023, 04/09/2021, 03/30/2020, Additional history exists RSV Immunization Adult Patients [...] Procedure Name Priority Date/Time Associated Diagnosis Comments CBC WITH AUTO DIFFERENTIAL Routine 10/16/2024 10:32 AM EDT Iron deficiency anemia, unspecified iron deficiency anemia type B12 deficiency VITAMIN B12 AND FOLATE Routine 10/16/2024 10:32 AM EDT Iron deficiency anemia, unspecified iron deficiency anemia type B12 deficiency IRON AND TIBC Routine 10/16/2024 10:32 AM EDT Iron deficiency anemia, unspecified iron deficiency anemia type B12 deficiency FERRITIN Routine 10/16/2024 10:32 AM EDT Iron deficiency anemia, unspecified iron deficiency anemia type B12 deficiency CBC AND DIFFERENTIAL Routine 10/16/2024 10:32 AM EDT Iron deficiency anemia, unspecified iron deficiency anemia type B12 deficiency EXTERNAL DIABETIC RETINA EYE EXAM 09/18/2024 MICROALBUMIN CREATININE URINE RATIO Routine 08/01/2024 9:31 AM EDT Type II diabetes mellitus with peripheral circulatory disorder (CMS/HCC V24, CMS/[facility] V28) Primary hypertension BASIC METABOLIC PANEL Routine 08/01/2024 9:31 AM EDT Type II diabetes mellitus with peripheral circulatory disorder (CMS/HCC V24, CMS/HCC V28) Primary hypertension HEMOGLOBIN A1C Routine 08/01/2024 9:31 AM EDT Type II diabetes mellitus with peripheral circulatory disorder (CMS/[facility] V24, CMS/HCC V28) LIPID PANEL WITH REFLEX TO DIRECT LDL Routine 06/19/2024 10:11 AM EST Hypercholesterolemia DEPRESSION SCREENING Routine 07/18/2023 COLONOSCOPY Routine 01/12/2023 HEPATITIS C SCREENING Routine 01/22/2013 from Last 3 Months or Most Recently Relevant to Health Maintenance Results * (ABNORMAL) Vitamin B12 and folate (10/16/2024 10:32 AM EDT) [facility] Vitamin B-12 401 250 - 900 pcg/mL LAB CHEMISTRY METHOD 10/16/2024 1:13 PM EDT [facility] Folate 18.4(H) 2.8 - 17.0 ng/ml LAB CHEMISTRY METHOD 10/16/2024 1:13 PM EDT [facility] Blood Venous blood specimen / Unknown Venipuncture / Unknown 10/16/2024 10:32 AM EDT 10/16/2024 12:02 PM EDT us Francine LUZ LAB BLOOD ORDERABLES Final Re sult [facility] [address] [place] [address], [place] [phone] * (ABNORMAL) CBC auto differential (10/16/2024 10:32 AM EDT) WBC 6.7 4.8 - 10.8 K/mcL LAB HEMETOLOGY METHOD 10/16/2024 12:16 PM EDT [facility] RBC 4.70 4.50 - 5.50 M/mcL LAB HEMETOLOGY METHOD 10/16/2024 12:16 PM EDT [facility] Hemoglobin 12.8(L) 13.5 - 17.5 g/dL LAB HEMETOLOGY METHOD 10/16/2024 12:16 PM EDT [facility] Hematocrit 41.2(L) 42.0 - 54.0 % LAB HEMETOLOGY METHOD 10/16/2024 12:16 PM EDT [facility] MCV 87.1 79.0 - 98.0 FL LAB HEMETOLOGY METHOD 10/16/2024 12:16 PM EDT [facility] MCH 27.1 27.0 - 32.0 pcg LAB HEMETOLOGY METHOD 10/16/2024 12:16 PM EDT [facility] MCHC 31.1(L) 32.0 - 37.0 g/dL LAB HEMETOLOGY METHOD 10/16/2024 12:16 PM EDT [facility] RDW 14.6 11.0 - 15.0 % LAB HEMETOLOGY METHOD 10/16/2024 12:16 PM EDT [facility] Platelets 222 130 - 400 K/mcL LAB HEMETOLOGY METHOD 10/16/2024 12:16 PM [facility] MPV 9.6 7.0 - 11.0 FL LAB HEMETOLOGY METHOD 10/16/2024 12:16 PM [facility] NRBC 0.0 <1.0 % LAB HEMETOLOGY METHOD [facility]/16[facility]24 [facility] NR[facility] Absolute 0.00 <0.10 K/mcL LAB HEMETOLOGY METHOD 10/16/2024 12:16 PM [facility] Neutrophils Relative 50.8 % LAB HEMETOLOGY METHOD 10/16/2024 12:16 PM [facility] Lymphocytes Relative 34.4 % LAB HEMETOLOGY METHOD 10/16/2024 12:16 PM [facility] Monocytes Relative 10.0 % LAB HEMETOLOGY METHOD 10/16/2024 12:16 PM [facility] Eosinophils Relative 3.7 % LAB HEMETOLOGY METHOD 10/16/2024 12:16 PM [facility] Basophils Relative 0.7 % LAB HEMETOLOGY METHOD 10/16/2024 12:16 PM [facility] Immature Granulocytes Relative 0.4 % LAB HEMETOLOGY METHOD 10/16/2024 12:16 PM [facility] Neutrophils Absolute 3.38 1.50 - 7.00 K/mcL LAB HEMETOLOGY METHOD 10/16/2024 12:16 PM [facility] Lymphocytes Absolute 2.30 1.00 - 5.00 K/mcL LAB HEMETOLOGY METHOD 10/16/2024 12:16 PM [facility] Monocytes Absolute 0.67 0.20 - 1.00 K/mcL LAB HEMETOLOGY METHOD 10/16/2024 12:16 PM EDT [facility] Eosinophils Absolute 0.25 0.00 - 0.50 K/[facility] LAB HEMETOLOGY METHOD 10/16/2024 12:16 PM EDT [facility] Basophils Absolute 0.05 0.00 - 0.20 K/[facility] LAB HEMETOLOGY METHOD 10/16/2024 12:16 PM EDT [facility] Immature Granulocytes Absolute 0.03 0.00 - 0.03 K/[facility] LAB HEMETOLOGY METHOD 10/16/2024 12:16 PM EDT [facility] Blood Venous blood specimen / Unknown Venipuncture / Unknown 10/16/2024 10:32 AM EDT 10/16/2024 12:01 PM EDT us Francine LUZ LAB BLOOD ORDERABLES Final Re sult Performing Organization Address City/[facility]/ZIP Co de Phone Number [facility] [address] [place] [address], [place] [phone] * Iron and TIBC (10/16/2024 10:32 AM EDT) Iron 71 50 - 160 mcg/dL LAB CHEMISTRY METHOD 10/16/2024 1:13 PM EDT [facility] TIBC 349 250 - 450 mcg/dL LAB CHEMISTRY METHOD 10/16/2024 1:13 PM EDT [facility] Iron Saturation 20 20 - 50 % LAB CHEMISTRY METHOD 10/16/2024 1:13 PM EDT [facility] Blood Venous blood specimen / Unknown Venipuncture / Unknown 10/16/2024 10:32 AM EDT 10/16/2024 12:02 PM EDT us Francine LUZ LAB BLOOD ORDERABLES Final Re sult [facility] [address] [place] [address], [place] [phone] * Ferritin (10/16/2024 10:32 AM EDT) Ferritin 36 26 - 388 ng/mL LAB CHEMISTRY METHOD 10/16/2024 1:13 PM EDT [facility] Blood Venous blood specimen / Unknown Venipuncture / Unknown 10/16/2024 10:32 AM EDT 10/16/2024 12:02 PM EDT us Francine LUZ LAB BLOOD ORDERABLES Final Re sult Performing Organization Address City/[facility]/ZIP Co de Phone Number [facility] [address] [place] [address], [place] [phone] * External Diabetic Retina Eye Exam Report (09/18/2024) Anatomical Region Laterality Modality Ultrasound us Provider [facility] US PROCEDURES Final Result * Microalbumin creatinine urine ratio (08/01/2024 9:31 AM EDT) Pathologist [facility] Creatinine, Urine 83.0 mg/dL LAB CHEMISTRY METHOD 08/01/2024 11:47 AM EDT [facility] Microalb, Ur 6.2 0.0 - 29.0 mg/L LAB CHEMISTRY METHOD 08/01/2024 11:47 AM EDT [facility] Microalb/Creat Ratio 7 <30 mg/g creat LAB CHEMISTRY METHOD 08/01/2024 11:47 AM EDT [facility] Urine Urine specimen obtained by clean catch procedure / Unknown Non-blood Collection / Unknown 08/01/2024 9:31 AM EDT 08/01/2024 10:35 AM EDT Mackenzie LUZ LAB URINE ORDERABLES Final Resul t [facility] [address] [place] [address], [place] [phone] * Hemoglobin A1c (08/01/2024 9:31 AM EDT) [facility] Hemoglobin A1C 7.3 % 08/01/2024 2:32 PM EDT [facility] Mean Bld Glu Estim. 163 mg/dL 08/01/2024 2:32 PM EDT [facility] Blood Venous blood specimen / Unknown Venipuncture / Unknown 08/01/2024 9:31 AM EDT 08/01/2024 10:38 AM EDT Mackenzie LUZ LAB BLOOD ORDERABLES Final Resul t Performing Organization Address [facility] Co de Phone Number [facility] [address] [place] [address], [place] [phone] * (ABNORMAL) Basic metabolic panel (08/01/2024 9:31 AM EDT) [facility] Sodium 137 133 - 145 mmol/L LAB CHEMISTRY METHOD 08/01/2024 1:35 PM [facility] Potassium 4.3 3.5 - 5.5 mmol/L LAB CHEMISTRY METHOD 08/01/2024 1:35 PM [facility] Chloride 104 96 - 110 mmol/L LAB CHEMISTRY METHOD 08/01/2024 1:35 PM [facility] CO2 27 21 - 32 mmol/L LAB CHEMISTRY METHOD 08/01/2024 1:35 PM [facility] Anion Gap 6 3 - 11 LAB CHEMISTRY METHOD 08/01/2024 1:35 PM [facility] Glucose 65(L) 70 - 100 mg/dL LAB CHEMISTRY METHOD 08/01/2024 1:35 PM [facility] BUN 14 5 - 25 mg/dL LAB CHEMISTRY METHOD 08/01/2024 1:35 PM EDT [facility] Creatinine 0.88 0.70 - 1.30 mg/dL LAB CHEMISTRY METHOD 08/01/2024 1:35 PM EDT [facility] eGFR 93 >=60 mL/min/1. 73m2 LAB CHEMISTRY METHOD 08/01/2024 1:35 PM EDT [facility] Comment:Calculation based on the Chronic Kidney Disease Epidemiology Collaboration (CKD-EPI) equation refit without adjustment for race. BUN/Creatinine Ratio 15.9 LAB CHEMISTRY METHOD 08/01/2024 1:35 PM EDT [facility] Calcium 9.0 8.5 - 10.5 mg/dL LAB CHEMISTRY METHOD 08/01/2024 1:35 PM EDT [facility] Blood Venous blood specimen / Unknown Venipuncture / Unknown 08/01/2024 9:31 AM EDT 08/01/2024 10:35 AM EDT us Mackenzie LUZ LAB BLOOD ORDERABLES Final Resul t [facility] [address] [place] [address], * (ABNORMAL) Lipid panel with reflex to direct LDL (06/19/2024 10:11 AM EST) Cholesterol 141 0 - 200 mg/dL LAB CHEMISTRY METHOD 06/19/2024 2:58 PM EST [facility] Triglycerides 161(H) 0 - 150 mg/dL LAB CHEMISTRY METHOD 06/19/2024 2:58 PM EST [facility] HDL 51 >=40 mg/dL LAB CHEMISTRY METHOD 06/19/2024 2:58 PM EST [facility] LDL Calculated 58 0 - 100 mg/dL LAB CHEMISTRY METHOD 06/19/2024 2:58 PM EST [facility] VLDL Cholesterol Papa 32.2 mg/dL LAB CHEMISTRY METHOD 06/19/2024 2:58 PM EST [facility] Non HDL Chol. (LDL+VLDL) 90 <145 mg/dL LAB CHEMISTRY METHOD 06/19/2024 2:58 PM EST [facility] Chol/HDL Ratio 2.8 0.0 - 4.4 LAB CHEMISTRY METHOD 06/19/2024 2:58 PM EST [facility] Blood Venous blood specimen / Unknown Venipuncture / Unknown 06/19/2024 10:11 AM EST 06/19/2024 10:11 AM EST Christopher Blue MD LAB BLOOD ORDERABLES Final Resu lt [facility] [address] [place] [address], * Depression Screening (07/18/2023) Pathologist [facility] Depression Screening Abstracted Historical Provider HEALTH MAINTENANCE Final Result * Colonoscopy (01/12/2023) Pathologist [facility] Colonoscopy Abstracted, No interpretation Anatomical Region Laterality Modality Other Historical Provider HEALTH MAINTENANCE Final Result * Hepatitis C Screening (01/22/2013) Pathologist [facility] Hepatitis C Screening Abstracted Historical Provider HEALTH MAINTENANCE Final Result from Last 3 Months or Most Recently Relevant to Health Maintenance Insurance MEDICARE MEDICAID - [place] [employer] MEDICARE Advance Directives * Full Code - Confirmed (Latest Code Status on File) Date Activated Date Inactivated Comments 06/18/2024 11:51 AM This code sta tus was ascertained in the following way: Code status discussion: discussion with patient To update the patient's code status, place a code status order. Do not modify or discontinue any currently active code status orders. Care Teams Bias Binding Folder Relationship Specialty Start Date End Date Christopher Blue MD 38 [place] [id number] PCP - General Internal Medicine 02/27/24
--- OUTSIDE RECORDS SUMMARY | 2024-11-05 16:29 | XMS_ITS | Clinical Summary ---
Author Organization [facility] Address [address] [place] [address] Care Team Providers Care Associate Teacher Name Role Phone Lamonte Wakefield RD Primary Care Provider [phone] Source Comments PLEASE NOTE, if this patient [...] 30 min. 1 Bottle 3 09/04/2020 Active Encounters Date Type Department Care Team Description 08/18/2024 9:40 AM EDT Office Visit [facility] [address] [place] [phone] Aniceto Valentine DDS from Last 3 Months Social History Tobacco Use Types Packs/Day Years [...] Last Done Comments Hepatitis C Screening 1955 Tobacco Screening 1955 Hypertension Screening (#1) 02/04/1972 CT Colonography 1999 Colonoscopy 1999 Colorectal Cancer Screening 1999 FIT/gFOBT 1999 Fecal DNA 1999 Flexible Sigmoidoscopy 1999 Abdominal Aortic Aneurysm Screening 2019 Falls Prevention 2019 Imm-Zoster, Recombinant (3 of 3) 09/05/2019 07/11/2019, 02/06/2015, 01/28/2015 [id number] ( season) 2023 Alcohol and Drug Screen 04/25/2024 Depression Annual Screen 04/25/2024 Imm-DTaP/Tdap/Td (2 - Td or Tdap) 04/30/2024 015 Imm-Influenza (#1) 2024 06/16/2023, 0 12/20/2016, 04/10/2016, Additional history exists Diabetes Screening 08/01/2025 08/01/2024, 0 08/01/2024, 08/01/2024, Additional history exists Lipid Screening 06/19/2029 06/19/2024 Imm-Pneumococcal 50+ Completed 06/16/2023, 04/09/2021, 03/30/2020, Additional history exists Procedures Procedure Name Priority Date/Time Associated Diagnosis Comments INTRAORAL - PERIAPICAL FIRST RADIOGRAPHIC IMAGE Routine 08/18/2024 9:40 AM EDT Caries LIMITED ORAL EVALUATION - PROBLEM FOCUSED Routine 08/18/2024 9:40 AM EDT Caries 2 CROWN - PORCELAIN FUSED PREDOMINANTLY BASE METAL Routine 08/18/2024 12:00 AM EDT 31 RETAINER CROWN-PORCELAIN FUSED PDMT BASE METAL Routine 08/18/2024 12:00 AM EDT from Last 3 Months Insurance [facility] [place] DENTAL [facility] Care Teams Associate Teacher Relationship Specialty Start Date End Date Lamonte Wakefield RD [address] [place] [address] PCP - General Nutrition 12/18/13
--- OUTSIDE RECORDS SUMMARY | 2024-11-05 16:29 | XMS_ITS | Clinical Summary ---
Author Organization [facility] Address [address] [place] [address] Care Team Providers Care Envelope Machine Operator Name Role Phone Christopher Blue MD Primary Care Provider [phone] Allergies No known active allergies Medications Medication [...] 77 02/20/2024 1:44 PM EDT Temperature 36.3 C (97.4 F) 02/20/2024 1:44 PM EDT Respiratory Rate 18 02/20/2024 1:44 PM EDT [...] Tdap) 04/30/2024 04/30/2014 Influenza Vaccine (#1) 2024 06/16/2023 RSV Adult > 60+ Yrs or (1 - 1-dose 75+ series) 2029 Pneumococcal Vaccine Completed 06/16/2023, 04/09/2021, 03/30/2020, Additional history exists Hepatitis B Vaccines Aged Out No long er eligible based on patient's age to complete this topic RSV Ped < 20 months Aged Out No longe r eligible based on patient's age to complete this topic Care Teams Envelope Machine Operator Relationship Specialty Start Date End Date Christopher Blue MD PCP - General Internal Medicine 03/16/17
== END 2024-11-05 15:37 | disposition home or self-care (01) ==
LOC: HO.HGI 15:12
PROVIDERS: PCP Internal Medicine; Visit Provider Nurse Practitioner Family
DX: A04.8 Other specified bacterial intestinal infections (principal)
CPT/HCPCS: 99203

== ENCOUNTER → 2024-11-05 15:12 | Outpatient (BNVA) | payer MEDICARE, MEDICAID, SELFPAY | PROVIDERS: PCP Internal Medicine; Visit Provider Nurse Practitioner Family | DX: A04.8 Other specified bacterial intestinal infections (principal) | CPT/HCPCS: 99202 ==

== ENCOUNTER 2025-01-15 07:33 | Outpatient (REF) | payer MEDICARE, MEDICAID, SELFPAY | END 2025-01-15 07:34 | disposition home or self-care (01) | LOC: HO.LAB 07:33 | PROVIDERS: Nurse Practitioner Family; PCP Internal Medicine; Visit Provider Surgery | DX: A04.8 Other specified bacterial intestinal infections (principal) | CPT/HCPCS: 83013 ==

== ENCOUNTER 2025-01-23 10:02 | Outpatient (AMB) | payer MEDICARE, MEDICAID, SELFPAY ==
--- OUTSIDE RECORDS SUMMARY | 2024-02-20 13:30 | XMS_ITS | Encounter Summary ---
Author Organization [facility] Address [address] [place] [address] Care Team Providers Care Excavating Contractor Name Role Phone Christopher Blue MD Primary Care Provider [phone] Encounter Details Date Type Department Care Team [...] for first iron and b12. He is spanish speaking but declined interpretor. He states he [...] Piv started, iron started, call epperson at [facility], will monitor closely. * Shahbaz, Notes Results - 02/20/2024 1:30 PM EDT [...] Care Team (Late st Contact Info) Description 02/18/2025 8:30 AM EDT Appointment [facility] [address] [facility] 2nd [place] [address] 02/19/2025 11:20 AM EDT Office Visit Endocrinology - [place] [address] [place] [address] Mackenzie Simon PA [address] [place] [address] 03/26/2025 8:15 AM EST Office Visit Orthopedic Surgery - [place] [address] [phone] Rayo Kenny, DPM [address] [phone] 04/23/2025 9:30 AM EST Office Visit [facility] Hematology Oncology [address] [place] [phone] Francine Morris PA [address] [place] [address] 05/27/2025 9:00 AM EST Office Visit Adult [facility] [address] [place] [address] Christopher Blue MD [address] [place] [address] documented as of this encounter Visit Diagnoses Diagnosis Deficiency of other specified B group vitamins documented in this encounter Care Teams Excavating Contractor Relationship Specialty Start Date End Date Christopher Blue MD PCP - General Internal Medicine 01/05/13 02/26/24 documented as of this encounter
--- OUTSIDE RECORDS SUMMARY | 2025-01-21 09:15 | XMS_ITS | Encounter Summary ---
Author Organization [facility] Address [address] [place] [address] Care Team Providers Care Horse Show Manager Name Role Phone Christopher Blue MD Primary Care Provider [phone] Reason for Visit * Reason Comments Nail Problem Fungus Encounter Details Date Type Department Care Team ([facility] Contact Info) Description 01/21/2025 9:15 AM EDT Office Visit Orthopedic Surgery [facility] [address] [phone] Rayo Kenny, DPM [address] [phone] Type II diabetes mellitus with peripheral circulatory disorder ([facility] V24, [facility] V28) (Primary Dx); Xerosis of skin; Dermatophytosis of nail; Metatarsalgia of both feet; Corns and callosities [L84]; Pain in toe of left foot; Diabetic mononeuropathy simplex ([facility] V24, [facility] V28); Pain in toe of right foot Social History Tobacco Use Types Packs/Day Years [...] AM EDT documented as of this encounter Ordered Prescriptions Prescription Sig Dispense Quantity Refills Last Filled Start Date End Date ammonium lactate (AmLactin) 12 % lotion Apply topically if needed for dry skin. 400 g 01/21/2025 6 documented in this encounter Progress Notes * Rayo Kenny DPM - 01/21/2025 9:15 AM EDT Images from the original note were not included. * Rayo Kenny DPM - 01/21/2025 9:15 AM EDT Last PCP visit:Referring MD: Alfred Will 08/09/24 S Patient presents today send is doing much better with top medication has been for his nails and skin he states his left foot at home states he has been using topically consistently with some improvement of his nails and skin does not that his nails still bother him his skin still bother him he still complains of ingrowing nail plate and he states that has been bother him consistently Patient has he was started on oral medication with rheumatology states he had liver function studies were normal states has been improving his nails and skin Patient was visiting abroad and was lost to follow-up for period time had finished course of oral antifungals states his nails are still very thick and painful ROS: GENERAL: Pt denies nausea, fever, vomiting, chills, or shortness of breath. Pt in NAD. CARDIOLOGY: pt denies chest pain, palpitations LUNGS: pt denies shortness of breath MUSCULOSKELETAL: See HPI, otherwise no joint pain or swelling, back pain, or muscle pain. SKIN: see HPI, otherwise no lesions, rash or itching NEURO: No persistent headache, weakness or numbness The remainder of the review of systems is noncontributory PAST MEDICAL HISTORY: Patient Active Problem List Diagnosis Varicose veins of legs Type II diabetes mellitus with peripheral circulatory disorder (CMS/HCC V24, CMS/HCC V28) PTSD (post-traumatic stress disorder) Osteoarthritis of left knee Lung nodule Lumbar spinal stenosis HTN (hypertension) HLD (hyperlipidemia) Helicobacter pylori gastritis Failed back syndrome Erectile dysfunction Depression Chronic angle-closure glaucoma of both eyes, mild stage CAD (coronary artery disease) B12 deficiency Iron deficiency anemia, unspecified Diabetes mellitus ([facility] V24, [facility] V28) Glaucoma Kyphoscoliosis deformity of spine Low serum vitamin B12 Lumbar degenerative disc disease Spinal stenosis of lumbar region Anxiety and depression SOCIAL HISTORY: Social History Tobacco Use Smoking status: Never Smokeless tobacco: Never Substance Use Topics Alcohol use: No ACTIVE MEDICATIONS: Outpatient Medications Marked as Taking for the 01/21/25 encounter (Office Visit) with Rayo Combs DPM Medication Sig Dispense Refill albuterol HFA (PROAIR HFA ; PROVENTIL HFA ; VENTOLIN HFA) 90 mcg/actuation inhaler Inhale 2 puffs by mouth every 6 (six) hours if needed for wheezing. 8.5 g 1 alcohol swabs (Alcohol Prep Pads) pads, medicated USE 3 TIMES A DAY TO CLEAN AREA FOR TESTING 300 each 5 alfuzosin (UROXATRAL) 10 mg 24 hr tablet TAKE 1 TABLET BY MOUTH EVERY DAY 90 tablet 1 ammonium lactate (AmLactin) 12 % lotion Apply topically if needed for dry skin. 400 g 0 aspirin 81 mg EC tablet TAKE 1 TABLET BY MOUTH EVERY DAY 90 tablet 3 atorvastatin (LIPITOR) 20 mg tablet Take 1 [...] crush, chew, or split. 90 each 1 cholecalciferol (VITAMIN D-3) 50 mcg (2,000 unit) tablet Take 1 tablet (2,000 Units total) by mouth1 (one) time each day. clonazePAM (KlonoPIN) 0.5 mg tablet Take 1 Tablet by mouth at bedtime as needed. cyanocobalamin (VITAMIN B-12) 250 mcg tablet Take 1 tablet (250 mcg total) by mouth. DOCOSAHEXAENOIC ACID ORAL Take 1 g by mouth daily. dorzolamide-timoloL (COSOPT) 22.3-6.8 mg/mL ophthalmic solution Administer 1 drop into both eyes 2 (two) times a day. ferrous sulfate 324 mg (65 mg elemental [...] Does not apply route every 14 days. FREESTYLE LANCETS MISC TEST BLOOD SUGARS 3 TIMES A DAY BEFORE MEALS gabapentin (NEURONTIN) 600 mg tablet Take 1 tablet (600 mg total) by mouth 3 (three) times a day. ibuprofen (ADVIL,MOTRIN) 600 mg tablet TAKE 1-3 TABLETS BY MOUTH DAILY NEEDED FOR PAIN WITH FOOD90 DAYS ORALLY insulin glargine (Lantus Solostar U-100 Insulin) 100 unit/mL (3 mL) injection pen INJECT 62 units at bedtime 60 mL 2 insulin lispro (HumaLOG KwikPen) 100 unit/mL injection pen USE THREE TIMES A DAY BEFORE MEALS: <100:0 UNITS, 101-150: 9 UNITS, 151-200: 12 UNITS, 201-250: 15 UNITS, 251-300: 18UNITS, 301-350: 20 UNITS, >350: 22 UNITS. MAX DOSE 66 UNITS/DAY 45 mL 1 isosorbide dinitrate (ISORDIL) 30 mg tablet Take [...] BY MOUTH EVERY DAY 90 tablet 2 naproxen (NAPROSYN) 500 mg tablet Take 1 tablet (500 mg total) by mouth 2 (two) times a day if needed for mild pain (pain). 60 tablet 0 NovoLOG Flexpen U-100 Insulin 100 unit/mL (3 mL) injection pen USE THREE TIMES A DAY BEFORE MEALS: <100:0 UNITS, 101-150: 9 UNITS, 151-200: 12 UNITS, 201- 250: 15 UNITS, 251-300: 18UNITS, 301-350: 20 UNITS, >350: 22 UNITS. MAX DOSE 66 UNITS/DAY 45 mL 1 pen needle, diabetic (BD Luiza 2nd Gen Pen Needle) 32 gauge x 5/32 needle Used to inject insulin 4 times a day. 200 each 5 pen needle, diabetic (BD Ultra-Fine Micro Pen Needle) 32 gauge x 1/4 needle Inject 1 each under the skin 4 (four) times a day. 200 each 2 prazosin (MINIPRESS) 5 mg capsule Take 1 capsule (5 mg total) by mouth. timoloL (BetimoL) 0.5 % ophthalmic solution 1 Drop 2 times daily. tiZANidine (ZANAFLEX) 4 mg tablet Take 1 tablet (4 mg total) by mouth 3 (three) times a day if needed for muscle spasms. 40 tablet 0 traZODone (DESYREL) 100 mg tablet Take 2 tablets (200 mg total) by mouth at bedtime as needed for sleep. 60 tablet 1 Trulicity 3 mg/0.5 mL pen injector injection INJECT 3 MG INTO THE SKIN ONE TIME PER WEEK 2 mL 5 venlafaxine XR (EFFEXOR-XR) 150 mg 24 hr capsule TAKE 1 CAPSULE BY MOUTH EVERY DAY WITH FOOD FOR 30DAYS ALLERGIES: Allergies Allergen Reactions Gelatin PHYSICAL EXAM: Visit Vitals Smoking Status Never PODIATRIC EXAMINATION: GENERAL: Patient appears well nourished, with NAD. VASCULAR: Dorsalis pedis pulses are 1/4 bilaterally and Posterior tibial pulses are 0-4 right 1 outof 4 left bilaterally. Capillary filling time within normal limits the digits. No pallor on elevation or rubor on dependency. Positive hair growth. No varicosities. Denies rest pain or claudication pain. NEUROLOGICAL: Sharp/dull sensation intact, protective sensation intact 10/10 with 5.07 semmes ana bilaterally, vibratory sensation with tuning fork intact to the tibial tuberosity. ORTHOPEDIC: Good muscle strength 5/5 of all flexors and extensors. Dorsi flexion of ankle ,10 degrees, plantar flexion WNL. No muscle atrophy. DERMATOLOGICAL:. Toenails: Left Toenail(s) 1-5: Crumbling upon debridement, subungual debris, discoloration, dystrophy, elongation, mycotic appearance, onychomycosis, pain and thickening. Right Toenail(s) 1-5: Crumbling upon debridement, subungual debris, discoloration, dystrophy, elongation, mycotic appearance, onychomycosis, pain and thickening. Annular scaling bilateral feet moccasin distribution Skin thinning texture shiny appearance diffuse hyperpigmentation bilaterally pedal hair decreased Hyperkeratotic tissue subfirst metatarsal bilaterally Xerosis of skin bilateral feet BIOMECHANICS: Ankle ROM WNL, STJ ROM wnl, MTJ ROM wnl, 1st MPJ ROM wnl. IMAGING: IMPRESSION: 1. Type II diabetes mellitus with peripheral circulatory disorder ([facility] V24, [facility] V28) 2. Xerosis of skin 3. Dermatophytosis of nail 4. Metatarsalgia of both feet 5. Corns and callosities [L84] 6. Pain in toe of left foot 7. Diabetic mononeuropathy simplex ([facility] V24, [facility] V28) 8. Pain in toe of right foot PLAN: Pt was seen and examined, history reviewed. New ammonium lactate sent to pharmacy for worsening dryness of skin and nails Patient finished course of Lamisil as prescribed Discussed with patient regarding proper glucose control, exercise, and diet. Explained to patient proper shoe gear, and importance of daily foot checks. Further workup nail plate including biopsy was discussed and reviewed I reviewed neuropathy and why it occurs in diabetics. I educated the patient on proper blood sugar control and the importance of an HgBA1c of less than 7.0%. I reviewed the signs and symptoms of neuropathy with the patient Pt to return for another evaluation in 3 months. Debridement of mycotic toenails 6-10: Verbal informed consent was obtained from the patient. Greater than 6 nails were aseptically debrided in thickness and length with nail nippers Hyperkeratotic tissue debrided pared with a number #15 scalpel blade x2 Rayo Kenny DPM documented in this encounter Plan of Treatment Upcoming Encounters Date Type Department Care Team (Late st Contact Info) Description 02/18/2025 8:30 AM EDT Appointment [address] [place] [phone] 02/19/2025 11:20 AM EDT Office Visit Endocrinology [facility] [address] [place], [place] [phone] Mackenzie Simon PA [address] [place], [place] 03/26/2025 8:15 AM EST Office Visit Orthopedic Surgery - [place] [address] [phone] Rayo Kenny, DPM [address] [phone] 04/23/2025 9:30 AM EST Office Visit [facility] Hematology Oncology [address] [place] [phone] Francine Morris PA [address] [place] [address] 05/27/2025 9:00 AM EST Office Visit Adult Medicine [facility] [address] [place] [address] Christopher Blue MD [address] [place] [address] documented as of this encounter Visit Diagnoses Diagnosis Type II diabetes mellitus with peripheral circulatory disorder ([facility] V24, [facility] V28)- Primary Type II or unspecified type diabetes mellitus with peripheral circulatory disorders, not stated as uncontrolled Xerosis of skin Dermatophytosis of nail Metatarsalgia of both feet Corns and callosities [L84] Corns and callosities Pain in toe of left foot Pain in soft tissues of limb Diabetic mononeuropathy simplex ([facility] V24, [facility] V28) Type II or unspecified type diabetes mellitus with neurological manifestations, not stated as uncontrolled Pain in toe of right foot Pain in soft tissues of limb documented in this encounter Additional Health Concerns Assessment Noted Time PHQ-9 Depression Total Score: 9 07/25/19 25 11:42 AM EDT documented as of this encounter Care Teams Horse Show Manager Relationship Specialty Start Date End Date Christopher Blue MD [address] [place] [phone] PCP - General Internal Medicine 02/27/24 documented as of this encounter
--- OUTSIDE RECORDS SUMMARY | 2025-01-21 10:25 | XMS_ITS | Encounter Summary ---
Author Organization [facility] Address [address] [place] [address] Care Team Providers Care Overcoil Stepper Name Role Phone Christopher Blue MD Primary Care Provider [phone] Reason for Visit * Episode Based Medications (Routine) - Authorized Specialty Diagnoses / Procedures Referred By Sheila t Referred To Contact Diagnoses B12 deficiency Jennifer Wills MD [address] [place] [address] Phone: tel: fax: [address] [phone] Phone: tel: fax: Referral ID Status Reason Start Date Expiration Date V isits Requested Visits Authorized [id number] Authorized 02/27/2024 02/26/2025 1 16 Encounter Details Date Type Department Care Team (Latest Contact Info) Description 01/21/2025 10:25 AM EDT Hospital Encounter [address] [phone] Jennifer Wills MD [address] [place] [address] B12 deficiency (Primary Dx) Social History Tobacco Use Types Packs/Day Years [...] Sign Reading Time Taken Comments Blood Pressure 95/56 01/21/2025 10:57 AM EDT Pulse 78 01/21/2025 10:57 AM EDT Temperature 36.7 C (98.1 F) 01/21/2025 10:57 AM EDT Respiratory Rate - - Oxygen Saturation 97% 01/21/2025 10:57 AM EDT Inhaled Oxygen Concentration - - Weight - - Height - - Body Mass Index - - documented in this encounter Progress Notes * Hoda Zabala RN - 01/21/2025 11:00 AM EDT Patient arrives ambulatory for b12. He states he has been in [place] and [place] for the past 45 daysand just returned. He denies any side effects from the b12 and denies s/s of reaction. Patient states the b12 really helps him and he states his energy is better. Injection given in left upper arm per patients request. Patient left stable and ambulatory, next appt made and given. Instructed to call with any questions or concerns. documented in this encounter Plan of Treatment Upcoming Encounters Date Type Department Care Team (Late st Contact Info) Description 02/18/2025 8:30 AM EDT Appointment [facility] [address] [place] [phone] 02/19/2025 11:20 AM EDT Office Visit Endocrinology - [place] [address] [place] [phone] Mackenzie Simon PA [address] [place] [address] 03/26/2025 8:15 AM EST Office Visit Orthopedic Surgery - [place] [address] [phone] Rayo Kenny DPM [address] [phone] 04/23/2025 9:30 AM EST Office Visit [facility] Hematology Oncology [address] [place] [address] Francine Morris PA [address] [place] [address] 05/27/2025 9:00 AM EST Office Visit [address] [phone] Christopher Blue MD [address] [place] [address] documented as of this encounter Visit Diagnoses Diagnosis B12 deficiency- Primary documented in this encounter Administered Medications Inactive Administered Medications - up to 3 most recent administrations Medication Order MAR Action Action Date Dose Rate Site cyanocobalamin (VITAMIN B-12) injection 1,000 mcg 1,000 mcg, subcutaneous, Once, On 01/21/25 at 1115, For 1 dose, Administer as deep subcutaneous injection. Avoid injection into the dermis or upper subcutaneous tissue.Indications:B12 deficiency Given 01/21/2025 11:11 AM EDT 1,000 mcg Left Upper Arm (Back) documented in this encounter Orders Medications Ordered That Zaid ht Not Have Been Administered Count Last Ordered Date First Ordered Date cyanocobalamin (VITAMIN B-12 ) injection 1,000 mcg 1 01/21/2025 documented in this encounter Additional Health Concerns Assessment Noted Time PHQ-9 Depression Total Score: 9 07/25/19 11:42 AM EDT documented as of this encounter Care Teams Overcoil Stepper Relationship Specialty Start Date End Date Christopher Blue MD [address] [place] [address] PCP - General Internal Medicine 02/27/24 documented as of this encounter
--- NOTE | 2025-01-23 10:13 | A.OFFVIS_ITS ---
Intake Visit Reasons: 6m F/u Allergies No Known Allergies Allergy (Verified 01/15/25 08:08) HPI Comments Details: 69 y/o man with IDDM, glaucoma, lumbar spinal stenosis, failed back syndrome, PTSD, depression, insomnia, sleep disorder resulting in nightmares, and anxiety with depression. He was complaining of right-sided low back pain. Pain level was 4 to 5/10. His pain has never completely disappeared. Sleep was okay but he was taking trazodone 100 mg 2 tablets at night. [facility] Medical History (Updated 01/23/25 @ 10:15 by Shaun Kilgore MD) Post laminectomy syndrome Failed back syndrome HTN (hypertension) Arthritis Cervical spondylarthritis Insomnia Right arm pain Obesity Anxiety Nightmare disorder Low back pain Depression Lumbar spinal stenosis Ulnar neuropathy Carpal tunnel syndrome Chronic pain syndrome Glaucoma HLD (hyperlipidemia) Diabetes mellitus Surgical History History of esophagogastroduodenoscopy (EGD) Previous back surgery Family History Mother Diabetes Father Diabetes Daughter No problems noted. Daughter No problems noted. Son No problems noted. Daughter No problems noted. Son No problems noted. Social History Household Members: Spouse and Children Housing: House Alcohol intake: never Patient Tobacco Use Status: Never used Tobacco Second Hand Smoke Exposure: No Current occupational status: retired Review of Systems Const Details: Persistent low back pain. Mood was okay. Bowel bladder function was okay. He was walking without assistance. Physical Exam Neuro Other: Mental Status: Alert and oriented to person, place, and time. Normal attention. Normal spontaneous speech, fluency, and comprehension. Cranial Nerves: CN II: Visual jordan full to confrontation, visual acuity intact. CN III, IV, : Pupils equal, round, reactive to light and accommodation. Extraocular movements are normal. CN V: Facial sensation is normal. CN VII: Facial movements symmetrical. CN VIII: Hearing intact to bedside conversation is normal. CN IX, X: Palate elevates symmetrically. CN XI: Shoulder shrug and head turn symmetrical. CN XII: Tongue midline without atrophy or fasciculations. Slow and cautious gait Extrapyramidal: Full facial expressions and blinking. No rigidity. Movements are appropriate with no tremor or abnormality. Speech: Normal; no dysarthria or tremor. Assessment & Plan Assessment & Plan (1) Failed back syndrome: Code(s): M96.1 - Postlaminectomy syndrome, not elsewhere classified Category: Medical (2) Depression: Code(s): F32.A - Depression, unspecified Category: Medical Qualifiers: Depression Type: persistent depressive disorder Qualified Code(s): F34.1 - Dysthymic disorder (3) Anxiety: Code(s): F41.9 - Anxiety disorder, unspecified Category: Medical (4) Nightmare disorder: Code(s): F51.5 - Nightmare disorder Category: Medical (5) Insomnia: Code(s): G47.00 - Insomnia, unspecified Category: Medical Qualifiers: Insomnia type: due to medical condition Qualified Code(s): G47.01 - Insomnia due to medical condition (6) Chronic pain syndrome: Code(s): G89.4 - Chronic pain syndrome Category: Medical Plan Impression: 1. Failed back syndrome 2. Chronic pain syndrome 3. 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 Chronic insomnia 5. Depression with anxiety Recommendations: 1. Venlafaxine extended release 150 mg 1 a day that helps in multiple areas including depression and anxiety and pain 2. Clonazepam 0.5 mg 1 at bedtime for sleep disorder 3. Trazodone 100 mg 1-2 at bedtime for insomnia 4. Gabapentin 600 mg 3 times a day for pain syndrome 5. Ibuprofen 600 mg 1 to 2 3 times a day as needed for pain 6. PT to help out learn exercises to help him with pain Orders: Orders PT Evaluation and Treatment Today G89.4 - Chronic pain syndrome, M96.1 - Postlaminectomy syndrome, not elsewhere classified Coding Level of Care Code Est Pt Level 5 (65075) Diagnoses Failed back syndrome M96.1 Persistent depressive disorder F34.1 Depression Type: persistent depressive disorder Anxiety F41.9 Nightmare disorder F51.5 Insomnia due to medical condition G47.01 Insomnia type: due to medical condition Chronic pain syndrome G89.4
--- OUTSIDE RECORDS SUMMARY | 2025-01-23 11:14 | XMS_ITS | Clinical Summary ---
Author Organization [facility] Address [address] [place] [address] Care Team Providers Care Poultry Packer Name Role Phone Christopher Blue MD Primary Care Provider [phone] Allergies No known active allergies Medications Medication [...] age to complete this topic Care Teams Poultry Packer Relationship Specialty Start Date End Date Christopher Blue MD PCP - General Internal Medicine 03/16/17
--- OUTSIDE RECORDS SUMMARY | 2025-01-23 11:14 | XMS_ITS | Encounter Summary ---
Author Organization [employer] [facility] Address [address] [place] [address] [address] [place] [address] Care Team Providers Care Air Compressor Mechanic Name Role Phone Unavailable Primary Care Provider [...]
--- OUTSIDE RECORDS SUMMARY | 2025-01-23 11:14 | XMS_ITS | Clinical Summary ---
Author Organization [employer] Address [address] [place] [address] [address] [place] [address] Care Team Providers Care Non Profit Job Titles Name Role Phone Unavailable Primary Care Provider [...] Vaccines (1 of 2) 02/04/2004 COVID-19 Vaccine (1 - 2023-2 5 season) 2024 Influenza Vaccine (#1) 2024 RSV Patients and [...]
--- OUTSIDE RECORDS SUMMARY | 2025-01-23 11:14 | XMS_ITS | Encounter Summary ---
Author Organization [facility] Address [address] [place] [address] Care Team Providers Care Vessel Master Name Role Phone Christopher Blue MD Primary Care Provider [phone] Encounter Details Date Type Department Care Team (Late Contact Info) Description 01/22/2025 Results Follow-Up Adult Medicine [address] [phone] Margarette Dumont MA Social History Tobacco Use Types Packs/Day Years [...] as of this encounter Plan of Treatment Upcoming Encounters Date Type Department Care Team (Late Contact Info) Description 02/18/2025 8:30 AM EDT Appointment [facility] [address] [place] [phone] 02/19/2025 11:20 AM EDT Office Visit [address] [phone] Mackenzie Simon PA [address] [place] [address] 03/26/2025 8:15 AM EST Office Visit Orthopedic Surgery - [facility] [address] [phone] Rayo Kenny, DPM [address] [phone] 04/23/2025 9:30 AM EST Office Visit [facility] Hematology Oncology [address] [place] [phone] Francine Morris PA [address] [place] [address] 05/27/2025 9:00 AM EST Office Visit Adult [facility] [address] [place] [address] Christopher Blue MD [address] [place] [address] documented as of this encounter Visit Diagnoses Not on filedocumented in this encounter Additional Health Concerns Assessment Noted Time PHQ-9 Depression Total Score: 9 07/25/19 25 11:42 AM EDT documented as of this encounter Care Teams Vessel Master Relationship Specialty Start Date End Date Christopher Blue MD [address] [place] [address] PCP - General Internal Medicine 02/27/24 documented as of this encounter
--- OUTSIDE RECORDS SUMMARY | 2025-01-23 11:14 | XMS_ITS | Clinical Summary ---
Author Organization [facility] Address [address] [place] [address] Phone Care Team Providers Care Survey Researcher Name Role Phone Christopher Blue MD Primary Care Provider [phone] Allergies Active Allergy Reactions Criticality Noted Date Comments Gelatin 10/17/2023 Medications prazosin (MINIPRESS) 5 mg capsule Take 1 capsule (5 mg total) by mouth. 12/02/19 24 Active meclizine (ANTIVERT) 25 mg tablet Take [...] 01/18/20 23 Active flash glucose sensor (FREESTYLE EMERSON 2 SENSOR MISC) 1 Each by Does not apply route every 14 days. 01/01/20 23 Active FREESTYLE LANCETS MISC TEST BLOOD SUGARS 3 TIMES A DAY BEFORE MEALS 11/23/20 22 Active clonazePAM (KlonoPIN) 0.5 mg tablet Take 1 Tablet by mouth at bedtime as needed. 03/15/20 22 Active timoloL (BetimoL) 0.5 % ophthalmic solution 1 Drop 2 times daily. Active alfuzosin (UROXATRAL) 10 mg 24 hr tablet TAKE 1 TABLET BY MOUTH EVERY DAY 90 tablet 1 03/15/20 24 Active cyanocobalamin (VITAMIN B-12) 250 mcg tablet [...] PAIN WITH FOOD 90 DAYS ORALLY 02/14/20 24 Active isosorbide dinitrate (ISORDIL) 30 mg tablet [...] daily. 90 tablet 2 04/09/20 24 Active ferrous sulfate 324 mg (65 mg elemental iron) EC tablet Take 1 tablet (324 mg total) by mouth 1 (one) time each day with breakfast. Do not crush, chew, or split. 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 Do not crush, chew, or split. 90 each 1 08/01/19 25 Active insulin glargine (Lantus Solostar U-100 [...] skin. 400 g 08/21/19 25 026 Active pen needle, diabetic (BD Luiza 2nd Gen Pen Needle) 32 gauge x 5/32 needleIndicati ons:Type 2 diabetes mellitus without complication, with long-term current use of insulin ([facility] V24, CMS/[facility] V28) Used to inject insulin 4 times a day. 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 MAX DOSE 66 UNITS/DAY 45 mL 1 11/16/19 25 Active insulin lispro (HumaLOG KwikPen) 100 unit/mL injection penIndications :Type II diabetes mellitus with peripheral circulatory disorder (CMS/HCC V24, CMS/HCC V28) USE THREE TIMES A DAY BEFORE MEALS: <100:0 UNITS, 101-150: 9 UNITS, 151-200: 12 UNITS, 201-250: 15 UNITS, 251-300: 18UNITS, 301-350: 20 UNITS, >350: 22 UNITS. MAX DOSE 66 UNITS/DAY 45 mL 1 11/17/19 25 Active tiZANidine (ZANAFLEX) 4 mg tablet Take 1 tablet (4 mg total) by mouth 3 (three) times a day if needed for muscle spasms. 40 tablet 01/11/20 25 Active naproxen (NAPROSYN) 500 mg tablet Take 1 tablet (500 mg total) by mouth 2 (two) times a day if needed for mild pain (pain). 60 tablet 01/11/20 25 025 Active traZODone (DESYREL) 100 mg tablet Take 2 tablets (200 mg total) by mouth at bedtime as needed for sleep. 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 400 g 01/22/20 25 026 Active tiZANidine (ZANAFLEX) 4 mg tablet Take 1 tablet (4 mg total) by mouth 4 (four) times a day if needed for muscle spasms. 40 tablet 04/12/20 24 025 Discontinued(Re order) cephalexin (KEFTAB) 500 mg tablet Take 2 tablets (1000 mg) by mouth once for 1 dose. Then take 1 tablet by mouth every 12 hours for 7 days. 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 As such, he likely has a low [...] and the less than 0.1% risk for GA, stroke or . The patient understands and [...] (03/15/2024): Added automatically from request for surgery [id number] Lumbar degenerative disc disease 06/29/2021 Overview (03/15/2024): Added automatically from request for surgery [id number] Spinal stenosis of lumbar region 06/29/2021 Overview (03/15/2024): Added automatically from request for surgery [id number] Diabetes mellitus ([facility] V24, [facility] V28) Glaucoma 05/25/2021 Anxiety and depression 05/25/2021 [...] diabetes mellitus wi th peripheral circulatory disorder ([facility] V24, [facility] V28) 03/26/2015 HLD (hyperlipidemia) 09/18/2013 Overview (02/07/2024): [...] Encounters Date Type Department Care Team Description 01/22/2025 Results Follow-Up Adult Medicine [address] [phone] Margarette Dumont MA 01/21/2025 10:25 AM EDT Hospital Encounter [facility] [address] [place] [phone] Jennifer Wills MD B12 deficiency (Primary Dx) 01/21/2025 9:15 AM EDT Office Visit Orthopedic Surgery [facility] [address] [facility] [address] [place] [address] Rayo Kenny DPM Type II diabetes mellitus with peripheral circulatory disorder ([facility] V24, [facility] V28) (Primary Dx); Xerosis of skin; Dermatophytosis of nail; Metatarsalgia of both feet; Corns and callosities [L84]; Pain in toe of left foot; Diabetic mononeuropathy simplex ([facility] V24, [facility] V28); Pain in toe of right foot 01/10/2025 3:45 PM EDT - 01/10/2025 11:59 PM EDT Hospital Encounter [facility] [address] [phone] Chronic cough; SOB (shortness of breath) Discharge Disposition: Home or Self Care 01/10/2025 2:45 PM EDT Office Visit Adult Medicine [address] [phone] Fracisco Santos PA Depression, unspecified depression type (Primary Dx); Insomnia, unspecified type; Type 2 diabetes mellitus with other specified complication, with long-term current use of insulin ([facility] V24, [facility] V28); Hyperlipidemia, unspecified hyperlipidemia type; Primary hypertension; Encounter for vitamin deficiency screening; Body mass index (BMI) 31.0-31.9, adult; Chronic cough; SOB (shortness of breath); Wheezing; Chronic bilateral low back pain, unspecified whether sciatica present 11/14/[address] [phone] Mackenzie Simon PA 10/30/2024 10:52 AM EDT - 10/30/2024 11:59 PM EDT Hospital Encounter [facility]fusion [facility] [address] [facility] 2nd [place] [phone] Jennifer Wills MD B12 deficiency (Primary Dx) Discharge Disposition: Home or Self Care 10/30/2024 9:00 AM EDT Office Visit Orthopedic Surgery [facility] [address] [place] [phone] Rayo Kenny, DPM Dermatophytosis of nail (Primary Dx); Metatarsalgia of both feet; Type II diabetes mellitus with peripheral circulatory disorder ([facility] V24, [facility] V28); Diabetic mononeuropathy simplex ([facility] V24, [facility] V28); Pain in toe of right foot; Pain in toe of left foot; Corns and callosities [L84]; Xerosis of skin from Last 3 Months Immunizations Immunization Administration Dates Next Due Influenza Quadravalent, MDCK [...] 5 years COLONOSCOPY W/ POLYPECTOMY 08/01/2017 PROCEDURE: CO COLSC FLX W/RMVL OF TUMOR POLYP LESION SNARE TQ; COMMENT: reactive lymphoid aggregates and hemorrhoids; repeat in 5 yrs OTHER SURGICAL HISTORY PROCEDURE: LUMBAR SPINE FUSION, LAT TRANSVERSE CARDIAC CATHETERIZATION DONE AT [facility] ON 09/10/24 w/CHELSEA. 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, mild stage 07/06/2017 DX:Chronic angle-closure gla ucoma of both eyes, mild stage Lumbar spinal stenosis 02/27/2020 DX:Lumbar spinal stenosis B12 deficiency 02/27/2024 Diabetes mellitus ([facility] V 24, [facility] V28) Family History Medical History Relation Name [...] F) 01/21/2025 10:57 AM EDT Respiratory Rate 12 10/30/2024 10:5 6 AM EDT Oxygen Saturation 97% 01/21/2025 10: 57 AM EDT Inhaled Oxygen Concentration - - Weight 98.3 kg (216 lb 11.2 oz) 01/10/2025 3:00 PM EDT Height 177.8 cm (5' 10 ) 01/10/2025 3:00 PM EDT Body Mass Index 31.09 01/10/2025 3:00 PM EDT Plan of Treatment Upcoming Encounters Date Type Department Care Team (Late st Contact Info) Description 02/18/2025 8:30 AM EDT Appointment [facility] [address] [place] [address] 02/19/2025 11:20 AM EDT Office Visit Endocrinology - [address] [phone] Mackenzie Simon PA [address] [place] [address] 03/26/2025 8:15 AM EST Office Visit Orthopedic Surgery [facility] [address] [phone] Rayo Kenny, DPM [address] [phone] 04/23/2025 9:30 AM EST Office Visit [facility] Hematology Oncology [address] [place] [phone] Francine Morris PA [address] [place] [address] 05/27/2025 9:00 AM EST Office Visit Adult Medicine [facility] [address] [place] [address] Christopher Blue MD [address] [place] [phone] Health Maintenance Due Date Last Done Comments Diabetes: Annual Foot Exam 02/04/1964 Zoster Vaccines (3 of 3) 09/05/2019 03/2 020, 02/06/2015, 01/28/2015 Social Influencers of Health Screening 04/03/2022 DTaP,Tdap,and Td Vaccines (2 - Td or Tdap) 04/30/2024 04/30/2014 COVID-19 Vaccine ( season) 2024 03/20/2022, 11/24/2021, 03/03/2021, Additional history exists Influenza Vaccine (#1) 2024 , 06/16/2023, 12/20/2016, Additional history exists Medicare Annual Wellness Visit 06/18/2025 06/18/2024 Diabetes: Blood Sugar Control Test (HGBA1C) 07/21/2025 01/21/2025, 08/01/2024, 04/04/2024, Additional history exists Diabetes: Annual Urine Albumin-Creatinine Ratio (uACR) 08/01/2025 08/01/2024, 06/19/2024, 06/16/2023 Diabetes: Annual Retina Eye Exam 09/18/2025 09/18/2024, 03/08/2024 Diabetes: Annual GFR (Glomerular Filtration Rate) 01/21/2026 01/21/2025, 08/01/2024, 06/19/2024, Additional history exists Falls Risk Assessment 01/21/2026 01/21/2025 Hypertension/CHF/CAD Annual BMP Blood Test 01/21/2026 01/21/2025, 08/01/2024, 06/19/2024, Additional history exists Colorectal Cancer Screening: Colonoscopy 01/13/2028 01/12/2023 Cholesterol Screening (Lipid Panel) 01/21/2030 01/21/2025, 06/19/2024, 01/03/2024, Additional history exists Hepatitis C Screening Completed 01/22/2013 Pneumococcal Vaccine: 50+ Years Completed 06/16/2023, 04/09/2021, 03/30/2020, Additional history exists RSV Immunization Adult Patients Completed 01/23/2024 Depression Screening Completed 07/24/2024, 07/18/19 24 HIB Vaccines Aged Out No longer eligi [...] Procedure Name Priority Date/Time Associated Diagnosis Comments BASIC METABOLIC PANEL Routine 01/21/2025 8:23 AM EDT Type 2 diabetes mellitus with other specified complication, with long-term current use of insulin ([facility] V24, [facility] V28) Primary hypertension HEMOGLOBIN A1C Routine 01/21/2025 8:23 AM EDT Type 2 diabetes mellitus with other specified complication, with long-term current use of insulin ([facility] V24, [facility] V28) LIPID PANEL WITH REFLEX TO DIRECT LDL Routine 01/21/2025 8:23 AM EDT Type 2 diabetes mellitus with other specified complication, with long-term current use of insulin ([facility] V24, [facility] V28) Hyperlipidemia, unspecified hyperlipidemia type VITAMIN D 25 HYDROXY Routine 01/21/2025 8:23 AM EDT Encounter for vitamin deficiency screening Body mass index (BMI) 31.0-31.9, adult XR CHEST 2 VIEWS Routine 01/10/2025 3:50 PM EDT Chronic cough SOB (shortness of breath) EXTERNAL DIABETIC RETINA EYE EXAM 09/18/2024 MICROALBUMIN CREATININE URINE RATIO Routine 08/01/2024 9:31 AM EDT Type II diabetes mellitus with peripheral circulatory disorder ([facility] V24, [facility] V28) Primary hypertension HM DEPRESSION SCREENING Routine 07/18/2023 HM COLONOSCOPY Routine 01/12/2023 HEPATITIS C SCREENING Routine 01/22/2013 from Last 3 Months or Most Recently Relevant to Health Maintenance Results * Lipid panel with reflex to direct LDL (01/21/2025 8:23 AM EDT) [facility] Cholesterol 139 0 - 200 mg/dL LAB CHEMISTRY METHOD 01/21/2025 10:15 AM EDT [facility] Triglycerides 99 0 - 150 mg/dL LAB CHEMISTRY METHOD 01/21/2025 10:15 AM EDT [facility] HDL 49 >=40 mg/dL LAB CHEMISTRY METHOD 01/21/2025 10:15 AM EDT [facility] LDL Calculated 70 0 - 100 mg/dL LAB CHEMISTRY METHOD 01/21/2025 10:15 AM EDT [facility] Comment:Estimated LDL Calcul ated using equation: Total cholesterol - HDL cholesterol - (Triglycerides/5) VLDL Cholesterol Papa 19.8 mg/dL LAB CHEMISTRY METHOD 01/21/2025 10:15 AM EDT [facility] Non HDL Chol. (LDL+VLDL) 90 <145 mg/dL LAB CHEMISTRY METHOD 01/21/2025 10:15 AM EDT [facility] Chol/HDL Ratio 2.8 0.0 - 4.4 LAB CHEMISTRY METHOD 01/21/2025 10:15 AM EDT [facility] Blood Venous blood specimen / Unknown Venipuncture / Unknown 01/21/2025 8:23 AM EDT 01/21/2025 8:23 AM EDT Fracisco LUZ LAB BLOOD ORDERABLES Fi nal Result Performing Organization Address City/[facility]/ZIP Co de Phone Number [facility] [address] [place] [address], * Vitamin D 25 hydroxy (01/21/2025 8:23 AM EDT) Vit D, 25-Hydroxy 32.6 30.0 - 80.0 ng/mL LAB CHEMISTRY METHOD 01/21/2025 11:03 AM EDT [facility] Blood Venous blood specimen / Unknown Venipuncture / Unknown 01/21/2025 8:23 AM EDT 01/21/2025 8:23 AM EDT Fracisco Santos [place] LAB BLOOD ORDERABLES Fi nal Result [facility] [address] [place] [address], [place] [phone] * (ABNORMAL) Hemoglobin A1c (01/21/2025 8:23 AM EDT) [facility] Hemoglobin A1C 7.6(H) <6.5 % LAB CHEMISTRY METHOD 01/21/2025 2:11 PM EDT [facility] Mean Bld Glu Estim. 171 mg/dL LAB CHEMISTRY METHOD 01/21/2025 2:11 PM EDT [facility] Blood Venous blood specimen / Unknown Venipuncture / Unknown 01/21/2025 8:23 AM EDT 01/21/2025 8:23 AM EDT Fracisco LUZ LAB BLOOD ORDERABLES Fi nal Result [facility] [address] [place] [address], [place] [phone] * Basic metabolic panel (01/21/2025 8:23 AM EDT) [facility] Sodium 139 133 - 145 mmol/L LAB CHEMISTRY METHOD 01/21/2025 10:15 AM [facility] Potassium 4.7 3.5 - 5.5 mmol/L LAB CHEMISTRY METHOD 01/21/2025 10:15 AM [facility] Chloride 106 96 - 110 mmol/L LAB CHEMISTRY METHOD 01/21/2025 10:15 AM [facility] CO2 30 21 - 32 mmol/L LAB CHEMISTRY METHOD 01/21/2025 10:15 AM [facility] Anion Gap 3 3 - 11 LAB CHEMISTRY METHOD 01/21/2025 10:15 AM [facility] Glucose 84 70 - 100 mg/dL LAB CHEMISTRY METHOD 01/21/2025 10:15 AM [facility] BUN 19 5 - 25 mg/dL LAB CHEMISTRY METHOD 01/21/2025 10:15 AM EDT [facility] Creatinine 0.98 0.70 - 1.30 mg/dL LAB CHEMISTRY METHOD 01/21/2025 10:15 AM EDT [facility] eGFR 83 >=60 mL/min/1. 73m2 LAB CHEMISTRY METHOD 01/21/2025 10:15 AM EDT [facility] Comment:Calculation based on the Chronic Kidney Disease Epidemiology Collaboration (CKD-EPI) equation refit without adjustment for race. BUN/Creatinine Ratio 19.4 LAB CHEMISTRY METHOD 01/21/2025 10:15 AM EDT [facility] Calcium 8.8 8.5 - 10.5 mg/dL LAB CHEMISTRY METHOD 01/21/2025 10:15 AM EDT [facility] Blood Venous blood specimen / Unknown Venipuncture / Unknown 01/21/2025 8:23 AM EDT 01/21/2025 8:23 AM EDT Fracisco LUZ LAB BLOOD ORDERABLES Fi nal Result [facility] [address] [place] [address], * XR Chest 2 Views (01/10/2025 3:50 PM EDT) Anatomical Region Laterality Modality Body Radiographic Wendy ging 01/10/2025 4:50 PM EDT Impressions 01/10/2025 4:56 PM EDT No evidence of an acute chest process. POS - [id number] -------- FINAL REPORT -------- Dictated By: Minoo Salazar Dictated Date: 01/10/2025 16:50 ET Assigned Physician: Minoo Salazar Reviewed and Electronically Signed By: Minoo Salazar Signed Date: 01/10/2025 16:56 ET Workstation ID: [id number] Transcribed By: Self Edit Transcribed Date: 01/10/2025 16:50 ET Narrative 01/10/2025 4:56 PM EDT EXAM: Chest x-ray HISTORY: Chronic cough and shortness of breath. COMPARISON: 01/19/2023, 01/15/2019 FINDINGS: PA and lateral views of the chest were performed. No focal infiltrate, pleural effusion, or evidence of pulmonary edema. 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 Heart is not enlarged. Mediastinal contours are stable. Partially imaged fusion hardware of the lower thoracic spine and lumbar spine with pedicle screws visualized at T11, T12, and L2. Stable moderate compression deformity involving T11. Procedure Note Minoo Salazar MD - 01/10/2025 EXAM: Chest x-ray HISTORY: Chronic cough and shortness of breath. COMPARISON: 01/19/2023, 01/15/2019 FINDINGS: PA and lateral views of the chest were performed. 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 Heart is notenlarged. Mediastinal contours are stable. Partially imaged fusionhardware of the lower thoracic spine and lumbar spine with pedicle screwsvisualized at T11, T12, and L2. Stable moderate compression deformityinvolving T11. IMPRESSION: No evidence of an acute chest process. POS - [id number] -------- FINAL REPORT -------- Dictated By: Minoo Salazar Dictated Date: 01/10/2025 16:50 ET Assigned Physician: Minoo Salazar Reviewed and Electronically Signed By: Minoo Salazar Signed Date: 01/10/2025 16:56 ET Workstation ID: [id number] Transcribed By: Self Edit Transcribed Date: 01/10/2025 16:50 ET us Fracisco LUZ IMG XR PROCEDURES Final Result * External Diabetic Retina Eye Exam Report (09/18/2024) Anatomical Region Laterality Modality Ultrasound us Provider [facility] IMG US PROCEDURES Final Result * Microalbumin creatinine urine ratio (08/01/2024 9:31 AM EDT) Creatinine, Urine 83.0 mg/dL LAB CHEMISTRY METHOD 08/01/2024 11:47 AM EDT [facility] Microalb, Ur 6.2 0.0 - 29.0 mg/L LAB CHEMISTRY METHOD 08/01/2024 11:47 AM EDT [facility] Microalb/Creat Ratio 7 <30 mg/g creat LAB CHEMISTRY METHOD 08/01/2024 11:47 AM EDT [facility] Urine Urine specimen obtained by clean catch procedure / Unknown Non-blood Collection / Unknown 08/01/2024 9:31 AM EDT 08/01/2024 10:35 AM EDT Mackenzie LUZ LAB URINE ORDERABLES Final Resul t [facility] [address] [place] [address], * Depression Screening (07/18/2023) [facility] Depression Screening Abstracted Historical Provider HEALTH MAINTENANCE Final Result * Colonoscopy (01/12/2023) [facility] Colonoscopy Abstracted, No interpretation Anatomical Region Laterality Modality Other Historical Provider HEALTH MAINTENANCE Final Result * Hepatitis C Screening (01/22/2013) [facility] Hepatitis C Screening Abstracted Historical Provider HEALTH MAINTENANCE Final Result from Last 3 Months or Most Recently Relevant to Health Maintenance Insurance MEDICARE [place] - [place] [employer] [place] Advance Directives * Full Code - Confirmed (Latest Code Status on File) Date Activated Date Inactivated Comments 06/18/2024 11:51 AM This code sta tus was ascertained in the following way: Code status discussion: discussion with patient To update the patient's code status, place a code status order. Do not modify or discontinue any currently active code status orders. Care Teams Survey Researcher Relationship Specialty Start Date End Date Christopher Blue MD [address] [place] [phone] (work) PCP - General Internal Medicine 02/27/24
== END 2025-01-23 10:37 | disposition home or self-care (01) ==
LOC: HO.HSM 10:03
PROVIDERS: PCP Internal Medicine; Visit Provider Psychiatry & Neurology Neurology
DX: M96.1 Postlaminectomy syndrome, not elsewhere classified (principal); F34.1 Dysthymic disorder; F41.9 Anxiety disorder, unspecified; F51.5 Nightmare disorder; G47.01 Insomnia due to medical condition; G89.4 Chronic pain syndrome
CPT/HCPCS: 99214

== ENCOUNTER → 2025-01-23 10:02 | Outpatient (BNVA) | payer MEDICARE, MEDICAID, SELFPAY | PROVIDERS: PCP Internal Medicine; Visit Provider Psychiatry & Neurology Neurology | DX: M96.1 Postlaminectomy syndrome, not elsewhere classified (principal); F34.1 Dysthymic disorder; F41.9 Anxiety disorder, unspecified; F51.5 Nightmare disorder; G47.01 Insomnia due to medical condition; G89.4 Chronic pain syndrome | CPT/HCPCS: 99212 ==

== ENCOUNTER 2025-04-23 11:15 | Outpatient (AMB) | payer MEDICARE, MEDICAID, SELFPAY ==
--- OUTSIDE RECORDS SUMMARY | 2024-02-20 12:30 | XMS_ITS | Encounter Summary ---
Author Organization [facility] Address [address] [place] [address] Care Team Providers Care Data Center Architect Name Role Phone Christopher Blue MD Primary Care Provider [phone] Encounter Details Date Type Department Care Team (Latest Contact Info) Description 02/20/2024 1:30 PM EDT Hospital Encounter TH HISTORIC ENCOUNTERS EASTERN CONVERSION ONLY Deficiency of other specified B group vitamins Social History Tobacco Use Types Packs/Day Years Used Date Smoking Tobacco: Never Smokeless Tobacco: Never Alcohol Use Standard Drinks/Week Comments No 0 (1 standard drink = 0.6 oz pur e alcohol) Sex and Gender Information Value Date Recorded Sex Assigned at Male 05/21/2024 9:50 AM EST Legal Sex Male 10:42 AM EST Gender Identity Male 05/21/2024 9:50 AM EST Sexual Orientation Straight 09/26/2024 11 :05 AM EDT documented as of this encounter Last Filed Vital Signs Vital Sign Reading Time Taken Comments Blood Pressure - - Pulse - - Temperature - - Respiratory Rate - - Oxygen Saturation - - Inhaled Oxygen Concentration - - Weight 85.9 kg (189 lb 6.4 oz) 01/23/2024 2:02 P M EDT Height 177.8 cm (5' 10 ) 01/23/2024 2:02 PM EDT Body Mass Index 27.18 01/23/2024 2:02 PM EDT documented in this encounter Progress Notes * Historical, Notes Results - 02/20/2024 1:30 PM EDT Patient arrives ambulatory for first iron and b12. He is greek speaking but declined interpretor. 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 Patient is in good spirits and states overallhe feels well. He denies bleeding. He denies pain or fatigue. Patient states his only symptom is headaches and also dizziness. Extensive education given on iron including side effects and s/s of allergic reaction. Patient understanding of education. Piv started, iron started, call epperson at [facility], will monitor closely. * Historical, Notes Results - 02/20/2024 1:30 PM EDT Patient finished iron without issues. He denies any complaints. Patient observed for 30 minutes. Patient requesting b12 be given in left buttock. Injection given in left buttock without issues. Patient to return for dose # 2 of feraheme. Patient left stable and ambulatory, instructedto call with any questions or concerns. documented in this encounter Plan of Treatment Upcoming Encounters Date Type Department Care Team (Late st Contact Info) Description 05/08/2025 9:00 AM EST Consult Pulmonology - [place] [address] [facility] [address] [place] [phone] Anais Kumar MD [address] [place] [address] 05/27/2025 9:00 AM EST Office Visit Adult Medicine [address] [phone] Christopher Blue MD [address] [place] [phone] 05/28/2025 8:15 AM EST Office Visit Orthopedic Surgery - [place] [address] [facility] [address] [place] [phone] Rayo Kenny DPM [address] [facility] [address] [place] [phone] 06/05/2025 8:45 AM EST Office Visit Endocrinology - [place] [address] [place] [address] Mackenzie Simon PA [address] [place] [address] 07/17/2025 7:50 AM EDT Office Visit [facility] [address] [place] [address] Dr Joy [address] [place] [phone] Justo Tan MD [address] [place] [address] Dr Lopez [address] [place] [phone] 10/22/2025 8:45 AM EDT Office Visit [facility] Hematology Oncology [address] [place] [phone] Francine Morris PA [address] [place], [place] [phone] documented as of this encounter Visit Diagnoses Diagnosis Deficiency of other specified B group vitamins documented in this encounter Care Teams Data Center Architect Relationship Specialty Start Date End Date Christopher Blue MD PCP - General Internal Medicine 01/05/13 02/26/24 documented as of this encounter
--- OUTSIDE RECORDS SUMMARY | 2025-04-23 09:30 | XMS_ITS | Encounter Summary ---
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 Name Role Phone Christopher Blue MD Primary Care Provider [phone] Reason for Visit * Reason Comments Follow-up Encounter Details Date Type Department Care Team (Late st Contact Info) Description 04/23/2025 9:30 AM EST Office Visit [facility] Hematology Oncology [address] [place] [phone] Francine Morris PA [address] [place] [address] B12 deficiency (Primary Dx); Helicobacter pylori gastritis; Iron deficiency anemia, unspecified iron deficiency anemia type Social History Tobacco Use Types Packs/Day Years [...] Sign Reading Time Taken Comments Blood Pressure 153/91 04/23/2025 9:41 AM EST Pulse 69 04/23/2025 9:41 AM EST Temperature 36.9 C (98.4 F) 04/23/2025 9:41 AM EST Respiratory Rate - - Oxygen Saturation 100% 04/23/2025 9:41 AM EST Inhaled Oxygen Concentration - - Weight 103 kg (227 lb) 04/23/2025 9:41 AM EST Height 177.8 cm (5' 10 ) 04/23/2025 9:41 AM EST Body Mass Index 32.57 04/23/2025 9:41 AM EST documented in this encounter Ordered Prescriptions Prescription Sig Dispense Quantity Refills Last Filled Start Date End Date syringe, disposable, 3 mL syringe every 30 (thirty) days. 3 cc 25 gauge 5/8 needles and syringes to administer B12 injection once a month 6 each 04/23/2025 needle, disp, 25 gauge (Exel Hypodermic Jackson) 25 gauge x 5/8 needle To administer B12 injection once a month 6 each 04/23/2025 cyanocobalamin, vitamin B-12, 1,000 mcg/mL kit Inject 1 mL as directed every 30 (thirty) days. 1 kit 5 04/23/2025 documented in this encounter Plan of Treatment Upcoming Encounters Date Type Department Care Team (Late st Contact Info) Description 05/08/2025 9:00 AM EST Consult Pulmonology - [place] 175 [facility] [address] [place] [phone] Anais Kumar MD [address] [place] [phone] 05/27/2025 9:00 AM EST Office Visit Adult Medicine [address] [phone] Christopher Blue MD [address] [place] [phone] 05/28/2025 8:15 AM EST Office Visit Orthopedic Surgery - [place] 250 175 [facility] [address] [place] [phone] Rayo Kenny DPM [address] [phone] 06/05/2025 8:45 AM EST Office Visit Endocrinology - [place] [address] [place] [phone] Mackenzie Simon PA [address] [place] [address] 07/17/2025 7:50 AM EDT Office Visit [facility] [address] [place] [phone] Justo Tan MD [address] [place] [address] Dr Lopez [address] [place] [address] 10/22/2025 8:45 AM EDT Office Visit [facility] Hematology Oncology [address] [place] [phone] Francine Morris PA [address] [place] [address] Scheduled Orders Name Type Priority Associated Diagnoses Orde r Schedule CBC and differential Lab Routine Helicobacter pylori gastritis B12 deficiency Iron deficiency anemia, unspecified iron deficiency anemia type Expected: 10/22/2025 (Approximate), Expires: 04/23/2026 Ferritin Lab Routine Helicobacter pylori gastritis B12 deficiency Iron deficiency anemia, unspecified iron deficiency anemia type Expected: 10/22/2025 (Approximate), Expires: 04/23/2026 Iron and TIBC Lab Routine Helicobacter pylori gastritis B12 deficiency Iron deficiency anemia, unspecified iron deficiency anemia type Expected: 10/22/2025 (Approximate), Expires: 04/23/2026 Vitamin B12 and folate Lab Routine Helicobacter pylori gastritis B12 deficiency Iron deficiency anemia, unspecified iron deficiency anemia type Expected: 10/22/2025 (Approximate), Expires: 04/23/2026 documented as of this encounter Results * Vitamin B12 and folate (04/23/2025 10:29 AM EST) [facility] Vitamin B-12 445 211 - 911 pcg/mL 04/23/2025 11:48 AM EST [facility] Folate 20.9 >=5.4 ng/ml 04/23/2025 11:48 AM EST [facility] Comment:Over the counter sup plements containing high doses of biotin may interfere with this assay. If interference is suspected, patients shoud be retested after refraining from biotin supplements for 72 hours. Blood Venous blood specimen / Unknown Venipuncture / Unknown 04/23/2025 10:29 AM EST 04/23/2025 11:15 AM EST us Francine LUZ LAB BLOOD ORDERABLES Final Re sult Performing Organization Address City/[facility]/ZIP Co de Phone Number [facility] [address] [place] [address], [place] [phone] * Iron and TIBC (04/23/2025 10:29 AM EST) Iron 93 50 - 160 mcg/dL 04/23/2025 11:50 AM [facility] TIBC 339 250 - 450 mcg/dL 04/23/2025 11:50 AM [facility] Iron Saturation 27 20 - 50 % 11:50 AM [facility] Blood Venous blood specimen / Unknown Venipuncture / Unknown 04/23/2025 10:29 AM EST 04/23/2025 11:15 AM EST Francine LUZ LAB BLOOD ORDERABLES Final Re sult [facility] [address] [place] [address], [place] [phone] * Ferritin (04/23/2025 10:29 AM EST) Ferritin 40 11 - 307 ng/mL 04/23/2025 11:44 AM [facility] Blood Venous blood specimen / Unknown Venipuncture / Unknown 04/23/2025 10:29 AM EST 04/23/2025 11:15 AM EST us Francine LUZ LAB BLOOD ORDERABLES Final Re sult [facility] [address] [place] [address], documented in this encounter Visit Diagnoses Diagnosis B12 deficiency- Primary Helicobacter pylori gastritis Iron deficiency anemia, unspecified iron deficiency anemia type documented in this encounter Discontinued Medications Medication Sig Discontinue Reason Start Date End Da te cyanocobalamin (VITAMIN B-12) 250 mcg tablet Take 1 tablet (250 mcg total) by mouth. 04/23/2025 documented as of this encounter Additional Health Concerns Assessment Noted Time PHQ-9 Depression Total Score: 9 07/25/19 25 11:42 AM EDT documented as of this encounter Care Teams Wood Heel Cementer Relationship Specialty Start Date End Date Christopher Blue MD [address] [place] [phone] PCP - General Internal Medicine 02/27/24 documented as of this encounter
--- OUTSIDE RECORDS SUMMARY | 2025-04-23 10:00 | XMS_ITS | Encounter Summary ---
Author Organization [facility] Address [address] [place] [address] Care Team Providers Care Associate Veterinarian Name Role Phone Christopher Blue MD Primary Care Provider [phone] Reason for Visit * Reason Comments Injections B12 * Episode Based Medications (Routine) - Pending Review Specialty Diagnoses / Procedures Referred By Sheila t Referred To Contact Diagnoses B12 deficiency Jennifer Wills MD [address] [place] [phone] Phone: tel: fax: [facility] [address] [place] [phone] Phone: tel: fax: Referral ID Status Reason Start Date Expiration Date V isits Requested Visits Authorized [id number] Pending Review 02/27/2024 02/26/2025 1 12 Encounter Details Date Type Department Care Team (Latest Contact Info) Description 04/23/2025 10:00 AM EST Hospital Encounter [facility] [address] [place] [phone] Jennifer Wills MD [address] [place] [address] B12 deficiency (Primary Dx); Helicobacter pylori gastritis; [...] Time Taken Comments Blood Pressure 153/91 04/23/2025 10:27 AM EST Pulse 69 04/23/2025 10:27 AM EST Temperature 36.9 C (98.4 F) 04/23/2025 10:27 AM EST Respiratory Rate - - Oxygen Saturation 100% 04/23/2025 10:27 AM EST Inhaled Oxygen Concentration - - Weight 103 kg (227 lb) 04/23/2025 10:27 AM EST Height 177.8 cm (5' 10 ) 04/23/2025 10:27 AM EST Body Mass Index 32.57 04/23/2025 10:27 AM EST documented in this encounter Progress Notes * Mitali May RN - 04/23/2025 10:00 AM EST Cassandra arrives ambulatory with strong clements steady gait for his monthly B12 injection - up from MD PIZARRO - per Cherry, will draw labs here on the unit today and will also give Cassandra instructions for self administering B12 going forward - no need to make any further appointments. Stable assessment completed. Med released to pharmacy. Resting in recliner with call epperson in reach. 1029 - Labs drawn from Left AC without any difficulty. 1048 - B12 injection given in right lower abdomen - well tolerated. No further appt needed, will bestarting home injections by self - discussed with Cherry Chino upon discharge. documented in this encounter Plan of Treatment Upcoming Encounters Date Type Department Care Team (Late st Contact Info) Description 05/08/2025 9:00 AM EST Consult Pulmonology - [address] [place] [address] Anais Kumar MD [address] [place] [phone] 05/27/2025 9:00 AM EST Office Visit Adult Medicine [address] [phone] Christopher Blue MD [address] [place] [address] 05/28/2025 8:15 AM EST Office Visit Orthopedic Surgery [place] [address] [phone] Rayo Kenny, DPM [address] [phone] 06/05/2025 8:45 AM EST Office Visit Endocrinology [address] [phone] Mackenzie Simon PA [address] [place] [address] 07/17/2025 7:50 AM EDT Office Visit [facility] [address] [place] [address] Dr Joy [address] [place] [phone] Justo Tan MD [address] [place] [address] Dr Lopez [address] [place] [phone] 10/22/2025 8:45 AM EDT Office Visit [facility] Hematology Oncology [address] [place] [phone] Francine Morris PA [address] [place] [address] documented as of this encounter Procedures Procedure Name Priority Date/Time Associated Diagnosis Comments VITAMIN B12 AND FOLATE Routine 04/23/2025 10:29 AM EST Helicobacter pylori gastritis B12 deficiency Iron deficiency anemia, unspecified iron deficiency anemia type IRON AND TIBC Routine 04/23/2025 10:29 AM EST Helicobacter pylori gastritis B12 deficiency Iron deficiency anemia, unspecified iron deficiency anemia type FERRITIN Routine 04/23/2025 10:29 AM EST Helicobacter pylori gastritis B12 deficiency Iron deficiency anemia, unspecified iron deficiency anemia type documented in this encounter Results * Vitamin B12 and folate (04/23/2025 10:29 AM EST) Vitamin B-12 445 211 - 911 pcg/mL 04/23/2025 11:48 AM EST [facility] Folate 20.9 >=5.4 ng/ml 04/23/2025 11:48 AM EST [facility] Comment:Over the counter sup plements containing high doses of biotin may interfere with this assay. If interference is suspected, patients shoud be retested after refraining from biotin supplements for 72 hours. Blood Venous blood specimen / Unknown Venipuncture / Unknown 04/23/2025 10:29 AM EST 04/23/2025 11:15 AM EST us Francine LUZ LAB BLOOD ORDERABLES Final Re sult [facility] [address] [place] [address], * Iron and TIBC (04/23/2025 10:29 AM EST) Iron 93 50 - 160 mcg/dL 04/23/2025 11:50 AM EST [facility] TIBC 339 250 - 450 mcg/dL 04/23/2025 11:50 AM EST [facility] Iron Saturation 27 20 - 50 % 11:50 AM EST [facility] Blood Venous blood specimen / Unknown Venipuncture / Unknown 04/23/2025 10:29 AM EST 04/23/2025 11:15 AM EST Francine LUZ LAB BLOOD ORDERABLES Final Re sult Performing Organization Address City/[facility]/ZIP Co de Phone Number [facility] [address] [place] [address], [place] [phone] * Ferritin (04/23/2025 10:29 AM EST) Ferritin 40 11 - 307 ng/mL 04/23/2025 11:44 AM EST [facility] Blood Venous blood specimen / Unknown Venipuncture / Unknown 04/23/2025 10:29 AM EST 04/23/2025 11:15 AM EST Francine LUZ LAB BLOOD ORDERABLES Final Re sult Performing Organization Address [facility]/ZIP Co de Phone Number [facility] [address] [place] [address], [place] [phone] documented in this encounter Visit Diagnoses Diagnosis B12 deficiency- Primary Helicobacter pylori gastritis Iron deficiency anemia, unspecified iron deficiency anemia type documented in this encounter Administered Medications Inactive Administered Medications - up to 3 most recent administrations Medication Order MAR Action Action Date Dose Rate Site cyanocobalamin (VITAMIN B-12) injection 1,000 mcg 1,000 mcg, subcutaneous, Once, On Tue04/23/25 at 1045, For 1 dose, Administer as deep subcutaneous injection. Avoid injection into the dermis or upper subcutaneous tissue.Indications:B12 deficiency Given 04/23/2025 10:48 AM EST 1,000 mcg Right Lower Abdomen documented in this encounter Orders Medications Ordered That Zaid ht Not Have Been Administered Count Last Ordered Date First Ordered Date cyanocobalamin (VITAMIN B-12 ) injection 1,000 mcg 1 04/23/2025 Appointment Requests Count Last Ordered Date Fi rst Ordered Date ONCBCN INFUSION APPOINTMENT REQUEST 04 documented in this encounter Additional Health Concerns Assessment Noted Time PHQ-9 Depression Total Score: 9 07/25/19 11:42 AM EDT documented as of this encounter Care Teams Associate Veterinarian Relationship Specialty Start Date End Date Christopher Blue MD [address] [place] [phone] PCP - General Internal Medicine 02/27/24 documented as of this encounter
--- NOTE | 2025-04-23 11:20 | MHC.OFFVIS ---
Vital Signs 04/23/25 11:31 Height 5 ft 9 in Weight 226 lb BMI 33.4 BP 150/86 H Blood Pressure Location Rt brachial Position Sitting Pulse 76 Pulse Source Pulse Oximeter Pulse Oximetry (%) 96 Oxygen Delivery Method Room Air Intake Visit Reasons: 30 m. HP Tx review Intake Note: Est pt for mgmt of GERD. Review s/p HP tx. Discuss retesting. CC; Pt denies any current GI sx or concerns. Confirms he has not taken his PPI ~ x5 weeks. Video Recorder Mechanic Required: Yes Video Recorder Mechanic Services: Video Recorder Mechanic Present Video Recorder Mechanic Name: [id number] Mongolian Video Recorder Mechanic Information Interpreted: clinical only Accompanied by: Self / Same As Patient Allergies No Known Allergies Allergy (Verified 04/23/25 11:21) HPI HPI 30 m. HP Tx review: Details: LAST VISIT H. pylori infection Plan Will treat empirically. Patient will return in the office in 2 months so we can retest him. Patient should be sent for upper endoscopy in the near future to check. Mild inactive gastritis with focal metaplasia without dysplasia. Patient was encouraged to avoid dietary triggers and late night snacking. Staying upright for minimum 3 hours after meals discussed with patient. Both patient and his daughter are agreeable to plan of care and verbalizes understanding of instructions. They were given the opportunity to ask questions and all questions answered. ? Thank you for allowing me to participate in his care New hggfjttvql-hijqwgwuw-gdrvrjzpq 10-250-12.5 mg (Talicia) must administer with a meal/food 4 caps (4 x 10-250-12.5 mg) PO Q8H 168 ea 0RF 14 days ydjseczyjr-kccxcbalt-nydyjempg 10-250-12.5 mg (Talicia) must administer with a meal/food 4 caps (4 x 10-250-12.5 mg) PO Q8H 168 ea 0RF 14 days TODAY'S VISIT Patient is here today for follow-up and to retest for H pylori. Last visit when we saw him in October patient was given script for antibiotics to treat H pylori. After patient was treated to we retest him in December and he came back positive again for H pylori. I have treated him with quadruple therapy afterwards and for the past 4 weeks he has been off of PPI. Patient will be tested again today. Had upper endoscopy with Dr. Eric in September that show some ulcerations. Even if this time patient has negative for H pylori he should have upper endoscopy to re-evaluate the effectiveness of the treatment with antibiotics as well as with the PPI. Patient denies any epigastric pain or discomfort. Denies any acid reflux. Denies dyspepsia, dysphagia or odynophagia. Patient denies any GI concerning symptoms. [facility], [facility] Medical History Post laminectomy syndrome Failed back syndrome HTN (hypertension) Arthritis Cervical spondylarthritis Insomnia Right arm pain Obesity Anxiety Nightmare disorder Low back pain Depression Lumbar spinal stenosis Ulnar neuropathy Carpal tunnel syndrome Chronic pain syndrome Glaucoma HLD (hyperlipidemia) Diabetes mellitus Surgical History History of esophagogastroduodenoscopy (EGD) Previous back surgery Family History Mother Diabetes Father Diabetes Daughter No problems noted. Daughter No problems noted. Son No problems noted. Daughter No problems noted. Son No problems noted. Social History Household Members: Spouse and Children Housing: House Alcohol intake: never Patient Tobacco Use Status: Never used Tobacco Second Hand Smoke Exposure: No Current occupational status: retired Review of Systems Const Denies weight gain and Denies weight loss ENT Reports no additional complaints, Denies dysphagia and Denies odynophagia Card Reports no additional complaints Resp Reports no additional complaints GI Denies abdominal pain, Denies belching, Denies melena, Denies bloating, Denies change in bowel habits, Denies dysphagia, Denies excessive flatus, Denies dyspepsia, Denies heartburn, Denies diarrhea, Denies loose stools, Denies nausea, Denies odynophagia and Denies vomiting Reports no additional complaints Musc Reports no additional complaints Neuro Reports no additional complaints Psych Reports no additional complaints Endo Reports no additional complaints Assessment & Plan Assessment & Plan (1) H. pylori infection: Code(s): A04.8 - Other specified bacterial intestinal infections Category: Medical Plan Will retest in the office again. If positive patient will need to go for upper endoscopy for retesting in getting micro for antibiotics susceptibility. Patient will continue taking pantoprazole twice a day. Avoid dietary triggers in late night snacking. Staying above for minimum 3 hours after meals discussed with him. Patient will return in 2 months. Patient will call our office if you have any GI concerning symptoms. Patient is agreeable to this plan and verbalizes understanding of instructions. He was given the opportunity to ask questions and all questions answered. Thank you for allowing me to participate in his care Orders: Orders H Pylori Breath Test Today K21.9 - Gastro-esophageal reflux disease without esophagitis Coding Level of Care Code Est Pt Level 3 (56200) Diagnoses H. pylori infection A04.8 Time Spent (min) 30 Comment 20 minutes spent with patient and additional 10 minutes spent reviewing his records
[2025-04-23 11:31] VITALS: BP 150/86; PULSE 76; O2SAT 96; BMI 33.4
--- OUTSIDE RECORDS SUMMARY | 2025-04-23 15:16 | XMS_ITS | Encounter Summary ---
Author Organization [facility] [facility] Address [address] [place] [address] 7 [place] [address] Care Team Providers Care Account Services Manager Name Role Phone Unavailable Primary Care Provider [...]
--- OUTSIDE RECORDS SUMMARY | 2025-04-23 15:16 | XMS_ITS | Clinical Summary ---
Author Organization [facility] Address [address] [place] [address] Phone Care Team Providers Care Compensation Director Name Role Phone Christopher Blue MD Primary Care Provider [phone] Allergies Active Allergy Reactions Criticality Noted Date [...] DX CODE E 11.51 08/12/19 24 Active cholecalciferol (VITAMIN D-3) 50 mcg (2,000 unit) [...] 3 TIMES A DAY BEFORE MEALS 03/17/20 22 Active clonazePAM (KlonoPIN) 0.5 mg tablet Take 1 Tablet by mouth at bedtime as needed. 03/15/20 22 Active timoloL (BetimoL) 0.5 % ophthalmic solution 1 Drop 2 times daily. Active alfuzosin (UROXATRAL) 10 mg 24 hr tablet TAKE 1 TABLET BY MOUTH EVERY DAY 90 tablet 1 03/15/20 24 Active DOCOSAHEXAENOIC ACID ORAL Take 1 g by mouth daily. Active dorzolamide-natanael oloL (COSOPT) 22.3-6.8 mg/mL ophthalmic solution Administer 1 [...] suspension Take 15 mL by mouth. 01/07/20 22 Active venlafaxine XR (EFFEXOR-XR) 150 mg 24 [...] TESTING 300 each 5 04/09/20 24 Active ferrous sulfate 324 mg (65 mg elemental iron) EC tablet Take 1 tablet (324 mg total) by mouth 1 (one) time each day with breakfast. Do not crush, chew, or split. 90 tablet 1 04/23/20 24 Active insulin glargine (Lantus Solostar U-100 Insulin) [...] 2nd Gen Pen Needle) 32 gauge x needleIndicatio ns:Type 2 diabetes mellitus without complication, with long-term current use of insulin ([facility] V24, [facility] V28) Used to inject insulin 4 times a day. 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 MAX DOSE 66 UNITS/DAY 45 mL 1 11/16/19 25 Active tiZANidine (ZANAFLEX) 4 mg tablet Take 1 tablet (4 mg total) by mouth 3 (three) times a day if needed for muscle spasms. 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 400 g 01/22/20 25 026 Active buPROPion XL (WELLBUTRIN XL) 300 mg 24 hr tablet TAKE 1 TABLET (300 MG TOTAL) BY MOUTH ONCE EACH DAY IN THE MORNING. 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 90 tablet 1 02/16/20 25 Active tirzepatide (Mounjaro) 5 mg/0.5 mL injectionIndica tions:Type II diabetes mellitus with peripheral circulatory disorder ([facility] V24, [facility] V28) Use 5mg once wekely 2 mL 3 03/05/20 25 Active traZODone (DESYREL) 100 mg tablet TAKE 2 TABLETS (200 MG TOTAL) BY MOUTH AT BEDTIME NEEDED FOR SLEEP 60 tablet 4 03/13/20 25 Active insulin lispro (HumaLOG KwikPen) 100 unit/mL injection penIndications: Type II diabetes mellitus with peripheral circulatory disorder ([facility] V24, [facility] V28) USE THREE TIMES A DAY BEFORE MEALS: <100:0 UNITS, 101-150: 9 UNITS, 151-200: 12 UNITS, 201-250: 15 UNITS, 251-300: 18UNITS, 301-350: 20 UNITS, >350: 22 UNITS. MAX DOSE 66 UNITS/DAY 45 mL 3 03/22/20 25 Active cyanocobalamin, vitamin B-12, 1,000 mcg/mL kit Inject 1 mL as directed every 30 (thirty) days. 1 kit 5 04/23/20 25 026 Active needle, disp, 25 gauge (Exel Hypodermic Artemus) 25 gauge x 5/8 needle To administer B12 injection once a month 6 each 04/23/20 25 Active syringe, disposable, 3 mL syringe every 30 (thirty) days. 3 cc 25 gauge 5/8 needles and syringes to administer B12 injection once a month 6 each 04/23/20 25 026 Active cyanocobalamin (VITAMIN B-12) 250 mcg tablet Take 1 tablet (250 mcg total) by mouth. 025 Discontinued naproxen (NAPROSYN) 500 mg tablet Take 1 tablet (500 mg total) by mouth 2 (two) times a day if needed for mild pain (pain). 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 As such, he likely has a low [...] and the less than 0.1% risk for ME, stroke or . The patient understands and [...] (03/15/2024): Added automatically from request for surgery [id number] Lumbar degenerative disc disease 06/29/2021 Overview (03/15/2024): Added automatically from request for surgery [id number] Spinal stenosis of lumbar region 06/29/2021 Overview (03/15/2024): Added automatically from request for surgery [id number] Diabetes mellitus 05/25/2021 Glaucoma 05/25/2021 Anxiety and depression 05/25/2021 Failed [...] diabetes mellitus wi th peripheral circulatory disorder 03/26/2015 HLD (hyperlipidemia) 09/18/2013 Overview (02/07/2024): Last [...] Encounters Date Type Department Care Team Description 04/23/2025 10:00 AM EST Hospital Encounter [address] [phone] Jennifer Wills MD B12 deficiency (Primary Dx); Helicobacter pylori gastritis; Iron deficiency anemia, unspecified iron deficiency anemia type 04/23/2025 9:30 AM EST Office Visit [facility] Hematology Oncology [address] [place] [phone] Francine Morris PA B12 deficiency (Primary Dx); Helicobacter pylori gastritis; Iron deficiency anemia, unspecified iron deficiency anemia type 04/15/2025 11:55 AM EST Lab Draw Station - [address] [phone] Coronary artery disease involving tangirnaq coronary artery 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 pectoris 03/26/2025 8:56 AM EST - 03/26/2025 11:59 PM EST Hospital Encounter [address] [phone] Jennifer Wills MD B12 deficiency (Primary Dx) Discharge Disposition: Home or Self Care 03/26/2025 8:15 AM EST Office Visit Orthopedic Surgery [facility] [address] 175 [facility] [address] [place] [phone] Rayo Kenny DPM Xerosis of skin (Primary Dx); Dermatophytosis of nail; Metatarsalgia of both feet; Corns and callosities [L84]; Pain in toe of right foot; Diabetic mononeuropathy simplex (CMS/HCC V24, CMS/HCC V28); Pain in toe of left foot; Type II diabetes mellitus with peripheral circulatory disorder (CMS/HCC V24, CMS/HCC V28); Hammer toe of left foot; Acquired hammer toe of right foot 03/05/2025 12:00 PM EST Office Visit [address] [phone] Mackenzie Simon PA Type II diabetes mellitus with peripheral circulatory disorder (CMS/HCC V24, CMS/HCC V28) (Primary Dx); Primary hypertension; Hyperlipidemia, unspecified hyperlipidemia type 03/05/[address] [phone] Mackenzie Simon PA 02/18/2025 8:18 AM EDT - 02/18/2025 11:59 PM EDT Hospital Encounter [facility] Infusion Center [address] [phone] Jennifer Wills MD B12 deficiency (Primary Dx) Discharge Disposition: Home or Self Care 01/22/2025 Results Follow-Up Adult Medicine [address] [phone] Margarette Dumont MA from Last 3 Months Immunizations Immunization Administration [...] 5 years COLONOSCOPY W/ POLYPECTOMY 08/01/2017 PROCEDURE: OK COLSC FLX W/RMVL OF TUMOR POLYP LESION SNARE TQ; COMMENT: reactive lymphoid aggregates and hemorrhoids; repeat in 5 yrs OTHER SURGICAL HISTORY PROCEDURE: LUMBAR SPINE FUSION, LAT [place] [facility] [place]. INDICATIONS: Abnormal Coronary CTA [...] spinal stenosis B12 deficiency 02/27/2024 Diabetes mellitus (CMS/HCC V 24, CMS/HCC V28) Family History Medical History Relation Name [...] Orientation Straight 09/26/2024 11 :05 AM EDT Last Filed Vital Signs Vital Sign Reading Time Taken Comments Blood Pressure 153/91 04/23/2025 10:27 AM EST Pulse 69 04/23/2025 10:27 AM EST Temperature 36.9 C (98.4 F) 04/23/2025 10:27 AM EST Respiratory Rate 15 03/05/2025 11:57 AM EST Oxygen Saturation 100% 04/23/2025 10:27 AM EST Inhaled Oxygen Concentration - - Weight 103 kg (227 lb) 04/23/2025 10:27 AM EST Height 177.8 cm (5' 10 ) 04/23/2025 10:27 AM EST Body Mass Index 32.57 04/23/2025 10:27 AM EST Plan of Treatment Upcoming Encounters Date Type Department Care Team (Late st Contact Info) Description 05/08/2025 9:00 AM EST Consult Pulmonology [facility] 175 [facility] [address] [place] [phone] Anais Kumar MD [address] [place] [phone] 05/27/2025 9:00 AM EST Office Visit Adult Medicine [address] [phone] Christopher Blue MD [address] [place] [address] 05/28/2025 8:15 AM EST Office Visit Orthopedic Surgery [facility] [address] [phone] Rayo Kenny DPM [address] [phone] 06/05/2025 8:45 AM EST Office Visit Endocrinology [address] [phone] Mackenzie Simon PA [address] [place] [address] 07/17/2025 7:50 AM EDT Office Visit [facility] [address] [place] [phone] Justo Tan MD [address] [place] [address] [address] [place] [address] 10/22/2025 8:45 AM EDT Office Visit [facility] Hematology Oncology [address] [place] [phone] Francine Morris PA [address] [place] [address] Health Maintenance Due Date Last Done Comments Drug Screen 1955 Non-Opioid Controlled Substance Agreement 1955 Diabetes: Annual Foot Exam 02/04/1964 Zoster Vaccines (3 of 3) 09/05/2019 020, 02/06/2015, 01/28/2015 Social Influencers of Health Screening 04/03/2022 COVID-19 Vaccine ( season) 2024 03/20/2022, 11/24/2021, 03/03/2021, Additional history exists Medicare Annual Wellness Visit 06/18/2025 06/18/2024 Diabetes: Blood Sugar Control Test (HGBA1C) 07/21/2025 01/21/2025, 08/01/2024, 04/04/2024, Additional history exists Diabetes: Annual Urine Albumin-Creatinine Ratio (uACR) 08/01/2025 08/01/2024, 06/19/2024, 06/16/2023 Diabetes: Annual Retina Eye Exam 09/18/2025 09/18/2024, 03/08/2024 Falls Risk Assessment 03/26/2026 03/26/2025 Diabetes: Annual GFR (Glomerular Filtration Rate) 04/15/2026 04/15/2025, 01/21/2025, 08/01/2024, Additional history exists Hypertension/CHF/CAD Annual BMP Blood Test 04/15/2026 04/15/2025, 01/21/2025, 08/01/2024, Additional history exists Colorectal Cancer Screening: Colonoscopy 01/13/2028 01/12/2023 Cholesterol Screening (Lipid Panel) 01/21/2030 01/21/2025, 06/19/2024, 01/03/2024, Additional history exists DTaP,Tdap,and Td Vaccines (3 - Td or Tdap) 04/18/2035 04/18/2025, 04/30/2014 Hepatitis C Screening Completed 01/22/2013 Pneumococcal Vaccine: 50+ Years Completed 06/16/2023, 04/09/2021, 03/30/2020, Additional history exists RSV Immunization Adult Patients Completed 01/23/2024 Depression Screening Completed 07/24/2024, 07/18/19 24 Influenza Vaccine Completed 03/15/2025, , 06/16/2023, Additional history exists HIB Vaccines Aged Out No longer eligi [...] deficiency anemia, unspecified iron deficiency anemia type CBC WITH AUTO DIFFERENTIAL Routine 04/15/2025 12:00 PM EST Coronary artery disease involving tangirnaq coronary artery 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 pectoris PROTHROMBIN TIME WITH INR Routine 04/15/2025 12:00 PM EST Coronary artery disease involving tangirnaq coronary artery 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 pectoris CBC AND DIFFERENTIAL Routine 04/15/2025 12:00 PM EST Coronary artery disease involving tangirnaq coronary artery 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 pectoris BASIC METABOLIC PANEL Routine 04/15/2025 12:00 PM EST Coronary artery disease involving tangirnaq coronary artery 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 pectoris HEMOGLOBIN A1C Routine 01/21/2025 8:23 AM EDT Type 2 diabetes mellitus with other specified complication, with long-term current use of insulin (CMS/HCC V24, CMS/HCC V28) LIPID PANEL WITH REFLEX TO DIRECT LDL Routine 01/21/2025 8:23 AM EDT Type 2 diabetes mellitus with other specified complication, with long-term current use of insulin (CMS/HCC V24, CMS/HCC V28) Hyperlipidemia, unspecified hyperlipidemia type EXTERNAL DIABETIC RETINA EYE EXAM 09/18/2024 MICROALBUMIN CREATININE URINE RATIO Routine 08/01/2024 9:31 AM EDT Type II diabetes mellitus with peripheral circulatory disorder (CMS/HCC V24, CMS/HCC V28) Primary hypertension HM DEPRESSION SCREENING Routine 07/18/2023 HM COLONOSCOPY Routine 01/12/2023 HM HEPATITIS C SCREENING Routine 01/22/2013 from Last 3 Months or Most Recently Relevant to Health Maintenance Results * Vitamin B12 and folate (04/23/2025 [...] [facility] [address] [place] [address], [place] [phone] * Iron and TIBC (04/23/2025 10:29 AM EST) Iron 93 50 - 160 mcg/dL 04/23/2025 11:50 AM EST [facility] TIBC 339 250 - 450 mcg/dL 04/23/2025 11:50 AM EST [facility] Iron Saturation 27 20 - 50 % 11:50 AM EST [facility] Blood Venous blood specimen / Unknown Venipuncture / Unknown 04/23/2025 10:29 AM EST 04/23/2025 11:15 AM EST Francine LUZ LAB BLOOD ORDERABLES Final Re sult [facility] [address] [place] [address], [place] [phone] * Ferritin (04/23/2025 10:29 AM EST) Pathologist [facility] Ferritin 40 11 - 307 ng/mL 04/23/2025 11:44 AM EST [facility] Blood Venous blood specimen / Unknown Venipuncture / Unknown 04/23/2025 10:29 AM EST 04/23/2025 11:15 AM EST us Francine LUZ LAB BLOOD ORDERABLES Final Re sult [facility] [address] [place] [address], [place] [phone] * (ABNORMAL) CBC auto differential (04/15/2025 12:00 PM EST) [facility] WBC 7.4 4.8 - 10.8 K/mcL LAB HEMETOLOGY METHOD 04/15/2025 3:02 PM [facility] RBC 5.60(H) 4.50 - 5.50 M/mcL LAB HEMETOLOGY METHOD 04/15/2025 3:02 PM [facility] Hemoglobin 15.3 13.5 - 17.5 g/dL LAB HEMETOLOGY METHOD 04/15/2025 3:02 PM [facility] Hematocrit 47.1 42.0 - 54.0 % LAB HEMETOLOGY METHOD 04/15/2025 3:02 PM [facility] MCV 84.3 79.0 - 98.0 FL LAB HEMETOLOGY METHOD 04/15/2025 3:02 PM [facility] MCH 27.4 27.0 - 32.0 pcg LAB HEMETOLOGY METHOD 04/15/2025 3:02 PM [facility] MCHC 32.5 32.0 - 37.0 g/dL LAB HEMETOLOGY METHOD 04/15/2025 3:02 PM [facility] RDW 13.7 11.0 - 15.0 % LAB HEMETOLOGY METHOD 04/15/2025 3:02 PM [facility] Platelets 223 130 - 400 K/mcL LAB HEMETOLOGY METHOD 04/15/2025 3:02 PM [facility] MPV 10.3 7.0 - 11.0 FL LAB HEMETOLOGY METHOD 04/15/2025 3:02 PM [facility] NRBC 0.0 <1.0 % LAB HEMETOLOGY METHOD 04/15/2025 3:02 PM [facility] NRBC Absolute 0.00 <0.10 K/mcL LAB HEMETOLOGY METHOD 04/15/2025 3:02 PM [facility] Neutrophils Relative 54.9 % LAB HEMETOLOGY METHOD 04/15/2025 3:02 PM [facility] Lymphocytes Relative 29.0 % LAB HEMETOLOGY METHOD 04/15/2025 3:02 PM [facility] Monocytes Relative 11.3 % LAB HEMETOLOGY METHOD 04/15/2025 3:02 PM [facility] Eosinophils Relative 3.1 % LAB HEMETOLOGY METHOD 04/15/2025 3:02 PM [facility] Basophils Relative 0.8 % LAB HEMETOLOGY METHOD 04/15/2025 3:02 PM [facility] Immature Granulocytes Relative 0.9 % LAB HEMETOLOGY METHOD 04/15/2025 3:02 PM [facility] Neutrophils Absolute 4.08 1.50 - 7.00 K/mcL LAB HEMETOLOGY METHOD 04/15/2025 3:02 PM [facility] Lymphocytes Absolute 2.16 1.00 - 5.00 K/mcL LAB HEMETOLOGY METHOD 04/15/2025 3:02 PM [facility] Monocytes Absolute 0.84 0.20 - 1.00 K/mcL LAB HEMETOLOGY METHOD 04/15/2025 3:02 PM [facility] Eosinophils Absolute 0.23 0.00 - 0.50 K/mcL LAB HEMETOLOGY METHOD 04/15/2025 3:02 PM [facility] Basophils Absolute 0.06 0.00 - 0.20 K/mcL LAB HEMETOLOGY METHOD 04/15/2025 3:02 PM [facility] Immature Granulocytes Absolute 0.07(H) 0.00 - 0.03 K/mcL LAB HEMETOLOGY METHOD 04/15/2025 3:02 PM [facility] Blood Venous blood specimen / Unknown Venipuncture / Unknown 04/15/2025 12:00 PM EST 04/15/2025 12:01 PM EST us Cathy Haynes NP LAB BLOOD ORDERABLES Final Result Performing Organization Address City/[facility]/ZIP Co de Phone Number [facility] [address] [place] [address], [place] [phone] * (ABNORMAL) Prothrombin time with INR (04/15/2025 12:00 PM EST) Protime 10.4(L) 10.6 - 13.9 sec LAB COAGULATION METHOD 04/15/2025 3:00 PM [facility] INR 0.8 LAB COAGULATION METHOD 04/15/2025 3:00 PM [facility] Blood Venous blood specimen / Unknown Venipuncture / Unknown 04/15/2025 12:00 PM EST 04/15/2025 12:01 PM EST us Cathy Haynes NP LAB BLOOD ORDERABLES Final Result [facility] [address] [place] [address], [place] [phone] * (ABNORMAL) Basic metabolic panel (04/15/2025 12:00 PM EST) Sodium 140 133 - 145 mmol/L 04/15/2025 4:48 PM [facility] Potassium 4.7 3.5 - 5.5 mmol/L 04/15/2025 4:48 PM [facility] Chloride 99 96 - 110 mmol/L 04/15/2025 4:48 PM [facility] CO2 32 21 - 32 mmol/L 04/15/2025 4:48 PM [facility] Anion Gap 9 3 - 11 04/15/2025 4:48 PM [facility] Glucose 152(H) 70 - 100 mg/dL 04/15/2025 4:48 PM [facility] BUN 18 5 - 25 mg/dL 04/15/2025 4:48 PM [facility] Creatinine 0.93 0.70 - 1.30 mg/dL 04/15/2025 4:48 PM [facility] eGFR 88 >=60 mL/min/1. 73m2 04/15/2025 4:48 PM [facility] Comment:Calculation based on the Chronic Kidney Disease Epidemiology Collaboration (CKD-EPI) equation refit without adjustment for race. BUN/Creatinine Ratio 19.4 04/15/2025 4:48 PM [facility] Calcium 9.0 8.5 - 10.5 mg/dL 04/15/2025 4:48 PM [facility] Blood Venous blood specimen / Unknown Venipuncture / Unknown 04/15/2025 12:00 PM EST 04/15/2025 12:01 PM EST us Cathy Haynes NP LAB BLOOD ORDERABLES Final Result [facility] [address] [place] [address], [place] [phone] * Lipid panel with reflex to direct LDL (01/21/2025 8:23 AM EDT) Cholesterol 139 0 - 200 mg/dL LAB CHEMISTRY METHOD 01/21/2025 10:15 AM [facility] Triglycerides 99 0 - 150 mg/dL LAB CHEMISTRY METHOD 01/21[facility]25 10:[facility] HDL 49 >=40 mg/dL LAB CHEMISTRY METHOD 01/21/2025 10:15 AM [facility] LDL Calculated 70 0 - 100 mg/dL LAB CHEMISTRY METHOD 01/21/2025 10:15 AM T [facility] Comment:Estimated LDL Calcul ated using equation: Total cholesterol - HDL cholesterol - (Triglycerides/5) VLDL Cholesterol Papa 19.8 mg/dL LAB CHEMISTRY METHOD 01/21/2025 10:15 AM [facility] Non HDL Chol. (LDL+VLDL) 90 <145 mg/dL LAB CHEMISTRY METHOD 01/21/2025 10:15 AM [facility] Chol/HDL Ratio 2.8 0.0 - 4.4 LAB CHEMISTRY METHOD 01/21/2025 10:15 AM [facility] Blood Venous blood specimen / Unknown Venipuncture / Unknown 01/21/2025 8:23 AM EDT 01/21/2025 8:23 AM EDT Fracisco LUZ LAB BLOOD ORDERABLES Fi nal Result [facility] [address] [place] [address], * (ABNORMAL) Hemoglobin A1c (01/21/2025 8:23 AM EDT) Hemoglobin A1C 7.6(H) <6.5 % LAB CHEMISTRY METHOD 01/21/2025 2:11 PM EDT [facility] Mean Bld Glu Estim. 171 mg/dL LAB CHEMISTRY METHOD 01/21/2025 2:11 PM EDT [facility] Blood Venous blood specimen / Unknown Venipuncture / Unknown 01/21/2025 8:23 AM EDT 01/21/2025 8:23 AM EDT Fracisco LUZ LAB BLOOD ORDERABLES Fi nal Result Performing Organization Address [facility]/ZIP Co de Phone Number [facility] [address] [place] [address], [place] [phone] * External Diabetic Retina Eye Exam Report (09/18/2024) Anatomical Region Laterality Modality Ultrasound us Provider [facility] US PROCEDURES Final Result * Microalbumin creatinine urine ratio (08/01/2024 9:31 AM EDT) Creatinine, Urine 83.0 mg/dL LAB CHEMISTRY METHOD 08/01/2024 11:47 AM EDT [facility] Microalb, Ur 6.2 0.0 - 29.0 mg/L LAB CHEMISTRY METHOD 08/01/2024 11:47 AM EDT [facility] Microalb/Creat Ratio 7 <30 mg/g creat LAB CHEMISTRY METHOD 08/01/2024 11:47 AM EDT [facility] Urine Urine specimen obtained by clean catch procedure / Unknown Non-blood Collection / Unknown 08/01/2024 9:31 AM EDT 08/01/2024 10:35 AM EDT Mackenzie LUZ LAB URINE ORDERABLES Final Resul t Performing Organization Address [facility]/ZIP Co de Phone Number [facility] [address] [place] [address], [place] [phone] * Hm Depression Screening (07/18/2023) Depression Screening Abstracted Historical Provider HEALTH MAINTENANCE Final Result * Colonoscopy (01/12/2023) Colonoscopy Abstracted, No interpretation Anatomical Region Laterality Modality Other Historical Provider HEALTH MAINTENANCE Final Result * Hepatitis C Screening (01/22/2013) Hepatitis C Screening Abstracted Historical Provider HEALTH MAINTENANCE Final Result from Last 3 Months or Most Recently Relevant to Health Maintenance Insurance MEDICARE [place]ICA[place] - [place] [facility] MEDICARE Advance Directives * Full Code - Confirmed (Latest Code Status on File) Date Activated Date Inactivated Comments 06/18/2024 11:51 AM This code sta tus was ascertained in the following way: Code status discussion: discussion with patient To update the patient's code status, place a code status order. Do not modify or discontinue any currently active code status orders. Care Teams Compensation Director Relationship Specialty Start Date End Date Christopher Blue MD [address] [place] [phone] PCP - General Internal Medicine 02/27/24
--- OUTSIDE RECORDS SUMMARY | 2025-04-23 15:16 | XMS_ITS | Clinical Summary ---
Author Organization [facility] [employer] Address [address] [place] [address] [address] [place] [address] Care Team Providers Care Virtual Office Assistant Name Role Phone Unavailable Primary Care Provider [...] of 2) 02/04/2004 COVID-19 Vaccine ( - 2024-2 6 season) 2024 Influenza Vaccine (#1) 2024 RSV [...]
--- OUTSIDE RECORDS SUMMARY | 2025-04-23 15:16 | XMS_ITS | Clinical Summary ---
Author Organization [facility] Prior to 09/22/[address] [place] [id number] Care Team Providers Care Account Manager Sales Representative Name Role Phone Christopher Blue MD Primary Care Provider [phone] Allergies No known active allergies Medications Medication [...] age to complete this topic Care Teams Account Manager Sales Representative Relationship Specialty Start Date End Date Christopher Blue MD PCP - General Internal Medicine 03/16/17
== END 2025-04-23 11:55 | disposition home or self-care (01) ==
LOC: HO.HGI 11:16
PROVIDERS: PCP Internal Medicine; Visit Provider Nurse Practitioner Family
DX: A04.8 Other specified bacterial intestinal infections (principal)
CPT/HCPCS: 99213

== ENCOUNTER 2025-04-23 11:15 | Outpatient (REF) | payer MEDICARE, MEDICAID, SELFPAY | END 2025-04-23 11:16 | disposition home or self-care (01) | LOC: CF 11:15 | PROVIDERS: PCP Internal Medicine; Visit Provider Nurse Practitioner Family | DX: A04.8 Other specified bacterial intestinal infections (principal); K21.9 Gastro-esophageal reflux disease without esophagitis; Z16.20 Resistance to unspecified antibiotic | CPT/HCPCS: 83013; 99212 ==